=== PATIENT | female | born 1970 | race Caucasian/White ===

== ENCOUNTER 2019-12-10 10:52 | Outpatient (REF) | payer OTHER, SELFPAY ==
--- NOTE | 2019-12-10 11:04 | XR_ITS ---
EXAMINATION: LUMBAR SPINE AND COCCYX X-RAY CLINICAL INFORMATION: Pain COMPARISON: None TECHNIQUE: 5 views of the lumbar spine and 3 views of the sacrum and coccyx FINDINGS: Lumbar spine x-ray: Bone alignment is normal. No fracture or dislocation is seen. Disc spaces are normal. There is mild degenerative spondylosis at L2-L3. Facet joints are normal. No pars defect is seen. Sacrum and coccyx: Bone alignment is normal. No fracture or dislocation is seen. The sacroiliac joints are normal. IMPRESSION: Lumbar spine: Mild degenerative spondylosis at L2-L3. Sacrum and coccyx: Unremarkable exam.
== END 2019-12-10 10:53 | disposition home or self-care (01) ==
LOC: HO.XRAY 10:52
PROVIDERS: PCP Internal Medicine; Visit Provider Psychiatry & Neurology Neurology
DX: M54.5 Low back pain (principal)
CPT/HCPCS: 72110; 72220

== ENCOUNTER 2020-01-07 12:04 | Outpatient (REF) | payer OTHER, SELFPAY ==
[2020-01-07 13:00] LABS: MANUAL DIFF FLAG NO
[2020-01-07 13:05] LABS: Basophils Percent Auto 0.4 % (0-2); Eosinophils Absolute Auto 0.1 X10*3/uL (0.0-0.4); Eosinophils Percent Auto 1.1 % (0-4); Hematocrit 44.8 % (37-47); Imm Gran Abs Auto 0.05 X10*3/uL (0.00-0.03); Imm Gran Pct Auto 0.7 % (0.0-0.4); Lymphocytes Percent Auto 13.5 % (20-40); Mean Corpuscular HGB Conc 33.5 g/dl (31.0-35.0); Mean Corpuscular Hemoglobin 30.8 pg (27.0-33.0); Mean Platelet Volume 9.5 fL (9.4-12.3); Monocytes Absolute Auto 0.5 X10*3/uL (0.1-1.2); Monocytes Percent Auto 6.2 % (2-11); Neutrophils Absolute Auto 5.8 X10*3/uL (2.0-8.3); Neutrophils Percent Auto 78.1 % (45-73); Platelet Count 343 X10*3/uL (160-400); Red Blood Count 4.87 X10*6/uL (4.20-5.50); Red Cell Distribution Width 12.7 % (11.0-16.0); White Blood Count 7.4 X10*3/uL (4.8-10.8)
[2020-01-07 13:23] LABS: Glucose Urine UA >=1000 MG/DL (NEG); Leukocyte Esterase Urine NEG (NEG); Nitrite Urine NEG (NEG); PH 5.5 (5.0-8.0); Urine Blood NEG (NEG); Urine Ketones NEG (NEG); Urine Protein NEG (NEG-TRACE)
[2020-01-07 13:33] LABS: Appearance Urine CLEAR; Color Urine YELLOW
[2020-01-07 13:45] LABS: Anion Gap 19 (12-20); Blood Urea Nitrogen 16 mg/dL (9-16); Calcium 9.3 mg/dL (8.4-10.2); Carbon Dioxide 21 mmol/L (22-29); Chloride 96 mmol/L (96-108); Estimated Glomerular Filt Rate 57; Phosphorus 3.6 mg/dL (2.7-4.5); Potassium 4.5 mmol/l (3.3-5.1); Sodium 131 mmol/L (135-145)
[2020-01-07 14:00] LABS: Bacteria Urine 1+ /LPF; RBC Urine 0 /HPF (0); Squamous Epithelial Cell Urine 1+ /LPF; WBC Urine 0-2 /HPF (0-4)
[2020-01-07 14:22] LABS: Creatinine Urine 28.68 mg/dL; Creatinine Urine 29.45 mg/dL; Microalbum/Creatinine Ratio Ur 55.7 ug/mg cr; Total Protein Urine Random < 7 mg/dL (<12)
[2020-01-07 14:40] LABS: Renal w Reflex Lab Use Only Order verified
== END 2020-01-07 12:05 | disposition home or self-care (01) ==
LOC: HO.LAB 12:04
PROVIDERS: PCP Internal Medicine; Visit Provider Internal Medicine Nephrology
DX: R80.9 Proteinuria, unspecified (principal); E11.9 Type 2 diabetes mellitus without complications; I10 Essential (primary) hypertension; E55.9 Vitamin D deficiency, unspecified; E11.21 Type 2 diabetes mellitus with diabetic nephropathy; N05.9 Unspecified nephritic syndrome with unspecified morphologic changes
CPT/HCPCS: 36415; 80051; 81001; 82043; 82310; 82565; 84100; 84156; 84520; 85025

== ENCOUNTER 2020-01-25 08:06 | Outpatient (REF) | payer OTHER, SELFPAY ==
[2020-01-25 08:44] LABS: Alanine Aminotransferase 23 U/L (0-31); Albumin Level 4.5 g/dL (3.5-5.0); Alkaline Phosphatase 140 U/L (39-117); Anion Gap 14 (12-20); Aspartate Amino Transferase 16 U/L (5-31); Bilirubin Total 0.6 mg/dL (0.0-1.0); Blood Urea Nitrogen 14 mg/dL (9-16); Calcium 9.3 mg/dL (8.4-10.2); Carbon Dioxide 24 mmol/L (22-29); Chloride 100 mmol/L (96-108); Cholesterol 285 mg/dL; Estimated Glomerular Filt Rate > 60; Glucose Fasting 277 mg/dL (60-99); HDL Cholesterol 38 mg/dL; LDL Cholesterol Calculated 195 mg/dl; Potassium 3.9 mmol/l (3.3-5.1); Sodium 134 mmol/L (135-145); Total Protein 7.9 g/dL (6.5-8.0); Triglycerides 261 mg/dL
[2020-01-25 09:04] LABS: Vitamin D 25-OH Total 34.5 ng/mL (>30)
[2020-01-25 09:42] LABS: Creatinine Urine 221.79 mg/dL
== END 2020-01-25 08:07 | disposition home or self-care (01) ==
LOC: HO.LAB 08:06
PROVIDERS: Visit Provider Internal Medicine
DX: E78.2 Mixed hyperlipidemia (principal); E55.9 Vitamin D deficiency, unspecified; E11.42 Type 2 diabetes mellitus with diabetic polyneuropathy
CPT/HCPCS: 80053; 80061; 82043; 82306

== ENCOUNTER 2020-02-01 07:06 | Outpatient (REF) | payer OTHER, SELFPAY | END 2020-02-01 07:07 | disposition home or self-care (01) | LOC: HO.LAB 07:06 | PROVIDERS: Visit Provider Internal Medicine | DX: Z20.828 Contact with and (suspected) exposure to other viral communicable diseases (principal) | CPT/HCPCS: C9803; U0003 ==

== ENCOUNTER 2020-05-25 06:59 | Outpatient (REF) | payer OTHER, SELFPAY ==
[2020-05-25 08:48] LABS: Alanine Aminotransferase 15 U/L (0-31); Albumin Level 4.3 g/dL (3.5-5.0); Alkaline Phosphatase 111 U/L (39-117); Anion Gap 13 (12-20); Aspartate Amino Transferase 15 U/L (5-31); Bilirubin Total 0.3 mg/dL (0.0-1.0); Blood Urea Nitrogen 13 mg/dL (9-16); Calcium 9.4 mg/dL (8.4-10.2); Carbon Dioxide 27 mmol/L (22-29); Chloride 105 mmol/L (96-108); Cholesterol 196 mg/dL; Estimated Glomerular Filt Rate > 60; Glucose Fasting 139 mg/dL (60-99); HDL Cholesterol 38 mg/dL; LDL Cholesterol Calculated 99 mg/dl; Sodium 141 mmol/L (135-145); Total Protein 7.7 g/dL (6.5-8.0); Triglycerides 296 mg/dL
[2020-05-25 08:54] LABS: Creatinine Urine 121.78 mg/dL; Microalbum/Creatinine Ratio Ur 32.8 ug/mg cr
== END 2020-05-25 07:00 | disposition home or self-care (01) ==
LOC: HO.LAB 06:59
PROVIDERS: PCP Internal Medicine; Visit Provider Internal Medicine
DX: E78.2 Mixed hyperlipidemia (principal); E11.9 Type 2 diabetes mellitus without complications
CPT/HCPCS: 36415; 80053; 80061; 82043

== ENCOUNTER 2020-07-15 07:24 | Outpatient (REF) | payer OTHER, SELFPAY ==
[2020-07-15 09:26] LABS: Glucose Urine UA 250 MG/DL (NEG); Leukocyte Esterase Urine TRACE (NEG); Nitrite Urine NEG (NEG); PH 5.5 (5.0-8.0); Specific Gravity - Urine >= 1.030 (1.005-1.025); UACC Culture Trigger YES; Urine Blood NEG (NEG); Urine Ketones NEG (NEG); Urine Protein TRACE MG/DL (NEG-TRACE)
[2020-07-15 09:30] LABS: Appearance Urine HAZY; Color Urine YELLOW; UACC CULT YES
[2020-07-15 09:48] LABS: Bacteria Urine 3+ /LPF; RBC Urine 0 /HPF (0); Squamous Epithelial Cell Urine 3+ /LPF
[2020-07-15 10:10] LABS: Albumin Level 4.5 g/dL (3.5-5.0); Anion Gap 16 (12-20); Blood Urea Nitrogen 21 mg/dL (9-16); Calcium 10.1 mg/dL (8.4-10.2); Carbon Dioxide 27 mmol/L (22-29); Chloride 99 mmol/L (96-108); Estimated Glomerular Filt Rate > 60; Magnesium 1.7 mg/dL (1.6-2.6); Phosphorus 3.4 mg/dL (2.7-4.5); Potassium 4.5 mmol/L (3.3-5.1); Sodium 137 mmol/L (135-145)
[2020-07-15 10:16] LABS: Creatinine Urine 207.28 mg/dL; Microalbum/Creatinine Ratio Ur 51.6 ug/mg cr; Total Protein Urine Random 42 mg/dL (<12)
[2020-07-15 11:25] LABS: Renal w Reflex Lab Use Only Order verified
== END 2020-07-15 07:25 | disposition home or self-care (01) ==
LOC: HO.LAB 07:24
PROVIDERS: PCP Internal Medicine; Visit Provider Internal Medicine Nephrology
DX: R80.9 Proteinuria, unspecified (principal); I12.9 Hypertensive chronic kidney disease with stage 1 through stage 4 chronic kidney disease, or unspecified chronic kidney disease; N18.9 Chronic kidney disease, unspecified; E11.22 Type 2 diabetes mellitus with diabetic chronic kidney disease; E11.21 Type 2 diabetes mellitus with diabetic nephropathy; E55.9 Vitamin D deficiency, unspecified
CPT/HCPCS: 36415; 80051; 81001; 82040; 82043; 82310; 82565; 83735; 84100; 84156; 84520; 87086

== ENCOUNTER 2020-08-12 07:30 | Outpatient (RCR) | payer OTHER, SELFPAY ==
--- NOTE | 2020-08-12 07:59 | MHC.OT.DC ---
[address] [phone] F: [phone] Occupational Therapy Discharge Note Provider: Dr Gavino Vargas Diagnosis: Pain in right hand Date of Evaluation: 07/06/20 Date of Discharge: 08/12/20 Treatments to Date: 8 Discharge Status: Independent with HEP Discharge Summary: Greta has progressed well w/ decreased pain in right CMC joint. She has good pain management w/ orthosis wear and limited use of right thumb. Use of thumb spica at work and occasional at home. Implementing specific jt protection tech as recommended. Mild sx of wrist tenosynovitis> basal jt pain Electronically Signed By: Yeni Reynoso OTR/L Please Sign and return to therapist, thank you for your referral.
== END 2020-08-12 07:59 | disposition other institution (70) ==
LOC: HO.OT 07:30
PROVIDERS: PCP Internal Medicine; Visit Provider Internal Medicine
DX: M79.641 Pain in right hand (principal)
CPT/HCPCS: 29130; 97033; 97035; 97110; 97140; 97165; 97760

== ENCOUNTER 2020-09-11 17:40 | Emergency (ER) | payer OTHER, SELFPAY ==
--- NOTE | ~2020-09-11 | XR_ITS ---
EXAMINATION:XR ankle RT min 3V, XR foot RT min 3V VIEWS ACQUIRED: Frontal lateral and oblique right foot and right ankle CLINICAL INFORMATION: Reason for Exam pain s/p injury COMPARISON: None available at the time of this dictation. FINDINGS: Nondisplaced oblique fracture through the lateral malleolus. The fracture is at the level of the ankle mortise. There is surrounding soft tissue swelling. No fracture of the foot bones.. Intertarsal, tarsometatarsal, metatarsophalangeal and interphalangeal joints are intact. , XR/XR ankle RT min 3V IMPRESSION: Minimally displaced lateral malleolar fracture surrounded with soft tissue swelling.
--- NOTE | ~2020-09-11 | XR_ITS ---
EXAMINATION:XR ankle RT min 3V, XR foot RT min 3V VIEWS ACQUIRED: Frontal lateral and oblique right foot and right ankle CLINICAL INFORMATION: Reason for Exam pain s/p injury COMPARISON: None available at the time of this dictation. FINDINGS: Nondisplaced oblique fracture through the lateral malleolus. The fracture is at the level of the ankle mortise. There is surrounding soft tissue swelling. No fracture of the foot bones.. Intertarsal, tarsometatarsal, metatarsophalangeal and interphalangeal joints are intact. , XR/XR foot RT min 3V IMPRESSION: Minimally displaced lateral malleolar fracture surrounded with soft tissue swelling.
[2020-09-11 17:51] VITALS: BP 144/87; PULSE 91; RESP 16; TEMP 37.1; O2SAT 100; BMI 27.3
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
== END 2020-09-11 19:43 | disposition home or self-care (01) ==
PROVIDERS: Emergency Provider Internal Medicine; PCP Internal Medicine
DX: S82.61XA Displaced fracture of lateral malleolus of right fibula, initial encounter for closed fracture (principal); E11.9 Type 2 diabetes mellitus without complications; I10 Essential (primary) hypertension; Z79.84 Long term (current) use of oral hypoglycemic drugs; Z79.899 Other long term (current) drug therapy; X58.XXXA Exposure to other specified factors, initial encounter; Y93.9 Activity, unspecified; Y92.832 Beach as the place of occurrence of the external cause; Y99.9 Unspecified external cause status
CPT/HCPCS: 73610; 73630; 99283

== ENCOUNTER → 2020-09-15 12:53 | Outpatient (BNVA) | payer OTHER, SELFPAY | PROVIDERS: Visit Provider Physician Assistant | DX: S82.831A Other fracture of upper and lower end of right fibula, initial encounter for closed fracture (principal) | CPT/HCPCS: 99202 ==

== ENCOUNTER 2020-09-24 07:41 | Outpatient (REF) | payer OTHER, SELFPAY ==
[2020-09-24 09:28] LABS: Alanine Aminotransferase 21 U/L (0-31); Albumin Level 4.5 g/dL (3.5-5.0); Alkaline Phosphatase 98 U/L (39-117); Anion Gap 15 (12-20); Aspartate Amino Transferase 20 U/L (5-31); Bilirubin Total 0.8 mg/dL (0.0-1.0); Blood Urea Nitrogen 22 mg/dL (9-16); Calcium 10.4 mg/dL (8.4-10.2); Carbon Dioxide 25 mmol/L (22-29); Chloride 103 mmol/L (96-108); Cholesterol 170 mg/dL; Estimated Glomerular Filt Rate > 60; Glucose Fasting 140 mg/dL (60-99); HDL Cholesterol 42 mg/dL; LDL Cholesterol Calculated 102 mg/dl; Potassium 4.6 mmol/L (3.3-5.1); Sodium 138 mmol/L (135-145); Total Protein 8.1 g/dL (6.5-8.0); Triglycerides 130 mg/dL
[2020-09-24 10:32] LABS: Creatinine Urine 190.67 mg/dL; Microalbum/Creatinine Ratio Ur 18.8 ug/mg cr
[2020-10-01 13:12] LABS: Vitamin D 25-OH, D2 <4 ng/mL; Vitamin D 25-OH, D3 44 ng/mL; Vitamin D 25-OH, Total 44 ng/mL (30-100)
== END 2020-09-24 07:42 | disposition home or self-care (01) ==
LOC: HO.LAB 07:41
PROVIDERS: Visit Provider Internal Medicine
DX: E11.65 Type 2 diabetes mellitus with hyperglycemia (principal); E78.5 Hyperlipidemia, unspecified; E55.9 Vitamin D deficiency, unspecified
CPT/HCPCS: 36415; 80053; 80061; 82043; 82306

== ENCOUNTER 2020-10-06 09:36 | Outpatient (REF) | payer OTHER, SELFPAY ==
--- NOTE | ~2020-10-06 | XR_ITS ---
EXAMINATION: XR ANKLE, RIGHT CLINICAL INFORMATION: Follow-up lateral malleolus fracture. COMPARISON: None TECHNIQUE: AP, lateral, and mortise views of the right ankle. FINDINGS: An oblique fracture is seen of the distal right fibula, in stable alignment. No new significant callus formation is seen. There is no dislocation or right ankle joint effusion. Boehler's angle is normal. There is a small plantar calcaneal spur. No soft tissue swelling or foreign body is seen. XR/XR ankle RT min 3V IMPRESSION: A mildly displaced oblique fracture seen of the distal right fibula, in stable alignment. There is no new callus formation.
== END 2020-10-06 09:37 | disposition home or self-care (01) ==
LOC: HO.HOSX 09:36
PROVIDERS: Visit Provider Physician Assistant
DX: S82.831A Other fracture of upper and lower end of right fibula, initial encounter for closed fracture (principal)
CPT/HCPCS: 73610; 99212

== ENCOUNTER 2020-11-03 09:42 | Outpatient (REF) | payer OTHER, SELFPAY ==
--- NOTE | ~2020-11-03 | XR_ITS ---
EXAMINATION: XR ANKLE, RIGHT CLINICAL INFORMATION: Pain in unspecified ankle and joints of unspecified foot. COMPARISON: XR right ankle 10/06/2020. TECHNIQUE: AP, lateral, and mortise views of the right ankle. FINDINGS: There is stable alignment of the minimally displaced oblique fracture of the distal fibular diametaphysis. There is a slight increase in partially bridging external callus formation posteriorly. There is no other significant change. The ankle mortise remains intact. XR/XR ankle RT min 3V IMPRESSION: Minimal interval callus formation involving the distal fibular fracture.
== END 2020-11-03 09:43 | disposition home or self-care (01) ==
LOC: HO.HOSX 09:42
PROVIDERS: PCP Internal Medicine; Visit Provider Physician Assistant
DX: S82.831A Other fracture of upper and lower end of right fibula, initial encounter for closed fracture (principal)
CPT/HCPCS: 73610; 99212

== ENCOUNTER 2020-12-01 07:24 | Outpatient (REF) | payer OTHER, SELFPAY ==
--- NOTE | ~2020-12-01 | XR_ITS ---
EXAMINATION: XR ANKLE, RIGHT CLINICAL INFORMATION: Pain. Follow-up fracture. COMPARISON: . TECHNIQUE: AP, lateral, and mortise views of the right ankle. FINDINGS: There is an oblique nondisplaced fracture distal fibula with a partially bridging callus formation. The soft tissue swellings have improved. The ankle mortise and subtalar joints are normal. XR/XR ankle RT min 3V IMPRESSION: Interval callus formation involving the distal fibular fracture, stable compared to 11/03/2020
== END 2020-12-01 07:25 | disposition home or self-care (01) ==
LOC: HO.HOSX 07:24
PROVIDERS: Visit Provider Physician Assistant
DX: S82.831D Other fracture of upper and lower end of right fibula, subsequent encounter for closed fracture with routine healing (principal)
CPT/HCPCS: 73610; 99212

== ENCOUNTER 2021-01-05 06:48 | Outpatient (REF) | payer OTHER, SELFPAY ==
[2021-01-05 07:53] LABS: Appearance Urine CLOUDY; Color Urine YELLOW; Glucose Urine UA 100 MG/DL (NEG); Leukocyte Esterase Urine TRACE (NEG); Nitrite Urine NEG (NEG); Specific Gravity - Urine 1.025 (1.005-1.025); UACC Culture Trigger YES; Urine Blood 3+ (NEG); Urine Ketones NEG (NEG); Urine Protein 1+ MG/DL (NEG-TRACE)
[2021-01-05 08:01] LABS: Creatinine Urine 158.52 mg/dL; Microalbum/Creatinine Ratio Ur 47.3 ug/mg cr; Total Protein Urine Random 31 mg/dL (<12)
[2021-01-05 08:05] LABS: Albumin Level 4.2 g/dL (3.5-5.0); Anion Gap 9 (12-20); Blood Urea Nitrogen 15 mg/dL (9-16); Calcium 9.8 mg/dL (8.4-10.2); Carbon Dioxide 30 mmol/L (22-29); Chloride 104 mmol/L (96-108); Estimated Glomerular Filt Rate > 60; Magnesium 1.8 mg/dL (1.6-2.6); Phosphorus 3.3 mg/dL (2.7-4.5); Potassium 4.2 mmol/L (3.3-5.1); Sodium 139 mmol/L (135-145)
[2021-01-05 08:14] LABS: Bacteria Urine 1+ /LPF; WBC Urine 0 /HPF (0-4)
[2021-01-05 08:15] LABS: Mucus Urine 2+ /LPF; Squamous Epithelial Cell Urine 2+ /LPF
== END 2021-01-05 06:49 | disposition home or self-care (01) ==
LOC: HO.LAB 06:48
PROVIDERS: PCP Student in an Organized Health Care Education/Training Program; Visit Provider Internal Medicine Nephrology
DX: R80.9 Proteinuria, unspecified (principal); E11.9 Type 2 diabetes mellitus without complications; I10 Essential (primary) hypertension; E55.9 Vitamin D deficiency, unspecified; E11.21 Type 2 diabetes mellitus with diabetic nephropathy; N05.9 Unspecified nephritic syndrome with unspecified morphologic changes
CPT/HCPCS: 36415; 80051; 81001; 81003; 82040; 82043; 82310; 82565; 83735; 84100; 84156; 84520; 87086

== ENCOUNTER 2021-01-05 07:00 | Outpatient (RCR) | payer OTHER, SELFPAY ==
--- NOTE | 2021-01-05 08:50 | MHC.PT.DC ---
[facility] [place] [facility] [place] Office [address] John Kincaid [address] [phone] F: [phone] F: [phone] F: [phone] F: [phone] Physical Therapy Discharge Report Diagnosis: other fracture of upper and lower end of right fibula Date of Surgery: DOI 09/10/2020 Date of Evaluation: 10/15/20 Date of Discharge: 01/05/21 Treatments to Date: 17 Cancellations to Date: No Shows to Date: Discharge Status: Achieved Goals Improved Function Independent with HEP Discharge Summary: 01/05/21 AAROM 10 degrees for ankle DF. PROM 14 degrees. Left ankle AROM 12 PROM 15 degrees. MMT 5/5 for DF, 5/5 for eversion, 5/5 for inversion 5/5 PF. Pt has met all goals. She is d/c from skilled PT Electronically signed by: Mago Chavarria PT DPT Please sign and return to therapist. Thank you for your referral.
== END 2021-01-05 08:50 | disposition home or self-care (01) ==
LOC: HO.PT 07:00
PROVIDERS: PCP Internal Medicine; Visit Provider Physician Assistant
DX: S82.831D Other fracture of upper and lower end of right fibula, subsequent encounter for closed fracture with routine healing (principal)
CPT/HCPCS: 97110; 97112; 97140; 97162; 97530; 97535

== ENCOUNTER 2021-01-09 07:35 | Outpatient (REF) | payer OTHER, SELFPAY ==
--- NOTE | ~2021-01-09 | MM_ITS ---
EXAMINATION: MM SCREENING DIGITAL BREAST TOMOSYNTHESIS, BILATERAL CLINICAL INFORMATION: Screening. Asymptomatic. The lifetime risk of breast cancer based on the Tyrer-Cuzick Model is 16%. COMPARISON: Mammography: 08/24/2019, 05/13/2017, 02/12/2016 TECHNIQUE: Digital breast tomosynthesis is performed in both the craniocaudal and mediolateral oblique views along with computer-aided detection (CAD). Synthesized 2D images are generated from the tomosynthesis. FINDINGS: There are scattered areas of fibroglandular density (ACR BI-RADS breast composition Category b). There are no significant masses, abnormal calcifications, or other abnormalities. Parenchymal pattern is similar to prior studies. The axilla and skin contours are unremarkable. MM/MM tomosynthesis screening BI IMPRESSION: No mammographic evidence of malignancy. ASSESSMENT: BI-RADS 1: Negative RECOMMENDATION: Routine annual mammography screening. This patient's information was entered into a reminder system with a target due date for their next mammogram.
== END 2021-01-09 07:36 | disposition home or self-care (01) ==
LOC: HO.MAMMO 07:35
PROVIDERS: PCP Internal Medicine; Visit Provider Internal Medicine
DX: Z12.31 Encounter for screening mammogram for malignant neoplasm of breast (principal)
CPT/HCPCS: 77063; 77067

== ENCOUNTER 2021-02-01 06:50 | Outpatient (REF) | payer OTHER, SELFPAY ==
[2021-02-01 07:36] LABS: Alanine Aminotransferase 21 U/L (0-31); Albumin Level 4.3 g/dL (3.5-5.0); Alkaline Phosphatase 113 U/L (39-117); Anion Gap 14 (12-20); Aspartate Amino Transferase 15 U/L (5-31); Bilirubin Total 0.4 mg/dL (0.0-1.0); Blood Urea Nitrogen 19 mg/dL (9-16); Calcium 9.6 mg/dL (8.4-10.2); Carbon Dioxide 24 mmol/L (22-29); Chloride 104 mmol/L (96-108); Cholesterol 184 mg/dL; Estimated Glomerular Filt Rate > 60; Glucose Fasting 190 mg/dL (60-99); HDL Cholesterol 40 mg/dL; LDL Cholesterol Calculated 81 mg/dl; Potassium 4.5 mmol/L (3.3-5.1); Sodium 137 mmol/L (135-145); Total Protein 7.7 g/dL (6.5-8.0); Triglycerides 318 mg/dL
[2021-02-01 09:09] LABS: Creatinine Urine 77.39 mg/dL
[2021-02-05 13:31] LABS: Vitamin D 25-OH, D2 <4 ng/mL; Vitamin D 25-OH, D3 34 ng/mL; Vitamin D 25-OH, Total 34 ng/mL (30-100)
== END 2021-02-01 06:51 | disposition home or self-care (01) ==
LOC: HO.LAB 06:50
PROVIDERS: PCP Internal Medicine; Visit Provider Internal Medicine
DX: E11.65 Type 2 diabetes mellitus with hyperglycemia (principal); E78.5 Hyperlipidemia, unspecified; E55.9 Vitamin D deficiency, unspecified
CPT/HCPCS: 36415; 80053; 80061; 82043; 82306

== ENCOUNTER 2021-04-13 07:38 | Day surgery (SDC) | payer OTHER, SELFPAY ==
--- NOTE | 2021-04-12 08:46 | P.CONAN_ITS ---
Documented by User: Leticia Griffin NP 04/12/21 08:47 HPI - Anesthesia Eval Consult details Narrative: 50yo F for Colonoscopy PMFSH Active Problems Active Problems: All Active Problems (Updated 04/07/21 @ 10:03 by Tanja Esquivel, RN) Conjunctivitis (Acute) Fracture of distal end of right fibula (Acute) Right hand pain (Acute) Hypovitaminosis D (Acute) Diabetes mellitus (Acute) Mixed hyperlipidemia (Acute) Essential hypertension (Acute) GERD (gastroesophageal reflux disease) (Acute) Past Medical History Medical History (Updated 04/07/21 @ 10:03 by Tanja Esquivel, RN) Diabetes mellitus Essential hypertension GERD (gastroesophageal reflux disease) Hypovitaminosis D IBS (irritable bowel syndrome) Left fibular fracture Membranous glomerulonephritis Mixed hyperlipidemia Neuropathy Right hand pain Family History Family History Father No problems noted. Mother Hypertension Maternal Grandmother Breast cancer Maternal Aunt Breast cancer Maternal Aunt Uterine cancer Maternal Uncle Diabetes Family/Other Breast cancer Surgical History Surgical History (Updated 04/07/21 @ 10:03 by Tanja Esquivel RN) History of esophagogastroduodenoscopy (EGD) History of hysteroscopy History of right salpingo-oophorectomy Hx of colonoscopy Social History Social History Housing: Apartment Alcohol intake: current Alcohol intake frequency: holidays/special occasions only Alcohol type: wine and hard liquor Patient Tobacco Use Status: Never used Tobacco e-Cigarette/Vaping Use: Never Used Second Hand Smoke Exposure: No Use of substances other than those prescribed or required for medical reasons: No Are you DNR?: No Advance Directives: Yes Advance Directives on File: Yes Advance Directives Date on File: 12/10/19 service: No Current occupational status: other (unemployed) Current occupation: rt 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 Meds Allergies Allergy/AdvReac Type Severity Reaction Status Date / Time No Known Allergies Allergy Verified 04/07/21 10:04 [No Known Allergies*] Home Medications Medication Instructions Recorded Confirmed Last Taken Type gabapentin 300 mg capsule 300 mg PO 01/28/20 02/03/21 Unknown History metformin 1,000 mg tablet 1,000 mg PO BID 01/28/20 04/07/21 Unknown History triamcinolone acetonide 0.025 % 1 applic TOPICAL DAILY 01/28/20 04/07/21 Unknown History topical cream acetaminophen 500 mg tablet 1,000 mg PO Q8H 09/15/20 04/07/21 Unknown History Exam Exam Date and Time: April 12, 2021 0846 Pertinent Lab Results Pertinent Lab Results: Laboratory Tests 02/01/21 07:06 Sodium 137 Potassium 4.5 Chloride 104 Carbon Dioxide 24 BUN 19 H Creatinine 0.84 Assessment and Plan Assessment Anesthesia Assessment: Chart Reviewed Documented by User: Serjio Fournier 04/13/21 09:05 [facility] Past Medical History Medical History (Updated 04/07/21 @ 10:03 by Tanja Esquivel RN) Diabetes mellitus Essential hypertension GERD (gastroesophageal reflux disease) Hypovitaminosis D IBS (irritable bowel syndrome) Left fibular fracture Membranous glomerulonephritis Mixed hyperlipidemia Neuropathy Right hand pain Family History Family History Father No problems noted. Mother Hypertension Maternal Grandmother Breast cancer Maternal Aunt Breast cancer Maternal Aunt Uterine cancer Maternal Uncle Diabetes Family/Other Breast cancer Family history of problems with anesthesia: No Surgical History Surgical History (Updated 04/07/21 @ 10:03 by Tanja Esquivel RN) History of esophagogastroduodenoscopy (EGD) History of hysteroscopy History of right salpingo-oophorectomy Hx of colonoscopy History of Problems with Anesthesia: No Social History Social History Housing: Apartment Alcohol intake: current Alcohol intake frequency: holidays/special occasions only Alcohol type: wine and hard liquor Patient Tobacco Use Status: Never used Tobacco e-Cigarette/Vaping Use: Never Used Second Hand Smoke Exposure: No Use of substances other than those prescribed or required for medical reasons: No Are you DNR?: No Advance Directives: Yes Advance Directives on File: Yes Advance Directives Date on File: 12/10/19 service: No Current occupational status: other (unemployed) Current occupation: rt handed Meds Allergies Allergy/AdvReac Type Severity Reaction Status Date / Time No Known Allergies Allergy Verified 04/07/21 10:04 [No Known Allergies*] Home Medications Medication Instructions Recorded Confirmed Last Taken Type gabapentin 300 mg capsule 300 mg PO 01/28/20 02/03/21 Unknown History metformin 1,000 mg tablet 1,000 mg PO BID 01/28/20 04/07/21 Unknown History triamcinolone acetonide 0.025 % 1 applic TOPICAL DAILY 01/28/20 04/07/21 Unknown History topical cream acetaminophen 500 mg tablet 1,000 mg PO Q8H 09/15/20 04/07/21 Unknown History Exam Airway Mallampati Class: IV Neck ROM: Full Loose/Missing/Broken Teeth: Yes (Chipped , missing ) Heart: rrr Lungs: bl breath sounds Assessment and Plan Assessment Anesthesia Assessment: Anesthesia Plan Discussed Final Anesthetic Review Family History of Problems with Anesthesia: No History of Problems with Anesthesia: No NPO: Yes ASA Class: III Final Preanesthetic Review: Consent Obtained/Reviewed and Anes Risks/Benef Reviewed Patient Risk: Intermediate Procedure Risk: Intermediate Anesthetic Plan Anesthetic Plan: MAC: Disposition: Standard PACU
[2021-04-13 08:13] VITALS: BP 151/98; PULSE 76; RESP 18; TEMP 36.3; O2SAT 100; BMI 29.7
[2021-04-13 08:23] LABS: Glucose, Whole Blood 162 mg/dL (60-115)
[2021-04-13] MEDS: Lactated Ringers 1,000 ML 100 ML IVCONT (08:36)
--- NOTE | 2021-04-13 08:57 | MHC.SHP ---
Pre-Procedural Eval Section A Date of Service: 04/13/21 The patient is an INPATIENT: No Changes since office visit: No Cold of Flu in the past 2 weeks, No New Medical Problems, No Changes in Medication and No Patient answered all questions The History & Physical has been completed within 30 days and I have reviewed it.: Yes Section B Chief Complaint: Screening Allergies: Allergies Allergy/AdvReac Type Severity Reaction Status Date / Time No Known Allergies Allergy Verified 04/07/21 10:04 [No Known Allergies*] Plan I have reviewed the history and physical and performed a pertinent physical examination on my patient. No changes have occurred unless specified.
--- NOTE | 2021-04-13 09:43 | PM.OP ---
Brief Operative Note Date of Service: 04/13/21 Pre-op diagnosis: screening Post-op diagnosis: same (colon polyps) Surgeon: Sanjiv Salguero Anesthesia: MAC Was an Physician Office Secretary used for this Procedure?: No Estimated blood loss (mL): 5 Pathology: other (polyps 80 cm x3, 20 cm x1) Condition: stable Disposition: PACU
[2021-04-13 09:49] VITALS: BP 122/76; PULSE 83; RESP 16; TEMP 37.1; O2SAT 97
[2021-04-13 10:04] VITALS: BP 111/81; PULSE 77; RESP 16; TEMP 37.1; O2SAT 98
--- NOTE | 2021-04-13 11:38 | OP_ITS ---
SURGEON: Sanjiv Salguero MD INDICATIONS: Colon cancer screening and prior history of adenomatous colon polyps. PREOPERATIVE DIAGNOSIS: POSTOPERATIVE DIAGNOSIS: PROCEDURE PERFORMED: Colonoscopy to the terminal ileum with biopsy and snare polypectomy. ESTIMATED BLOOD LOSS: COMPLICATIONS: ANESTHESIA: Medications, monitored anesthesia care. ASSISTANTS: SPECIMENS: DESCRIPTION OF PROCEDURE: A history and physical was performed. The risks and benefits of the procedure were explained to the patient. Informed consent was obtained, and the patient was placed in the left lateral decubitus position. A digital rectal exam was performed and was found to be normal. The Olympus pediatric video colonoscope was introduced into the rectum and advanced to the cecum without difficulty. The cecum was identified by transillumination, palpation, and identification of the ileocecal valve. Examination was performed, and the scope was removed. She tolerated the procedure well and was returned to the recovery room in stable condition. FINDINGS: The terminal ileum was normal. The visualized colonic mucosa was normal. The quality of the prep was good with some residual greenish blue colored prep material left that was liquid was washed and suctioned to allow visualization of the underlying mucosa. At 80 cm were 3 less than 5 mm sessile polyps, which were removed with the biopsy forceps. A final polyp at 20 cm measured approximately 8 mm and was removed with a snare and recovered via suction. No other polyps were identified. There was mild sigmoid diverticulosis with a few scattered diverticula throughout the remainder of the colon. Retroflex examination did show the presence of internal hemorrhoids that were moderate in size. IMPRESSION: Colon polyps. RECOMMENDATION: Follow up the biopsy results. MD GERSON Crespo/RUBENSL / [id number]
== END 2021-04-13 11:02 | disposition home or self-care (01) ==
PROVIDERS: PCP Internal Medicine Medical Oncology; Visit Provider Internal Medicine Gastroenterology
PROC: 0DJD8ZZ Inspection of Lower Intestinal Tract, Via Natural or Artificial Opening Endoscopic (ICD-10-PCS; CPT 45378; principal; 2021-04-13 09:00)
DX: Z12.11 Encounter for screening for malignant neoplasm of colon (principal); Z86.010 Personal history of colon polyps; D12.4 Benign neoplasm of descending colon; D12.5 Benign neoplasm of sigmoid colon; K57.30 Diverticulosis of large intestine without perforation or abscess without bleeding; K64.8 Other hemorrhoids; K58.0 Irritable bowel syndrome with diarrhea; K21.9 Gastro-esophageal reflux disease without esophagitis; E11.9 Type 2 diabetes mellitus without complications; G62.9 Polyneuropathy, unspecified; N05.2 Unspecified nephritic syndrome with diffuse membranous glomerulonephritis; Z79.899 Other long term (current) drug therapy; Z79.84 Long term (current) use of oral hypoglycemic drugs
CPT/HCPCS: 45385; 45380; 82947; 88305

== ENCOUNTER 2021-06-12 07:38 | Outpatient (REF) | payer OTHER, SELFPAY ==
[2021-06-12 07:59] LABS: MANUAL DIFF FLAG NO
[2021-06-12 09:27] LABS: Basophils Percent Auto 0.8 % (0-2); Eosinophils Absolute Auto 0.1 X10*3/uL (0.0-0.4); Hematocrit 41.9 % (37.0-47.0); Hemoglobin 13.8 g/dl (12.0-16.0); Imm Gran Abs Auto 0.04 X10*3/uL (0.00-0.03); Imm Gran Pct Auto 0.8 % (0.0-0.4); Lymphocytes Absolute Auto 1.1 X10*3/uL (1.2-4.9); Lymphocytes Percent Auto 20.9 % (20-40); Mean Corpuscular HGB Conc 32.9 g/dl (31.0-35.0); Mean Corpuscular Hemoglobin 29.9 pg (27.0-33.0); Mean Corpuscular Volume 90.7 fL (80.0-98.0); Mean Platelet Volume 9.6 fL (9.4-12.3); Monocytes Absolute Auto 0.5 X10*3/uL (0.1-1.2); Monocytes Percent Auto 9.3 % (2-11); Neutrophils Absolute Auto 3.4 x10*3/uL (2.0-8.3); Neutrophils Percent Auto 66.2 % (45-73); Platelet Count 317 X10*3/uL (160-400); Red Blood Count 4.62 X10*6/uL (4.20-5.50); Red Cell Distribution Width 12.9 % (11.0-16.0); White Blood Count 5.1 X10*3/uL (4.8-10.8)
[2021-06-12 09:43] LABS: Creatinine Urine 177.63 mg/dL; Microalbum/Creatinine Ratio Ur 29.8 ug/mg cr
[2021-06-12 09:47] LABS: Alanine Aminotransferase 18 U/L (0-31); Albumin Level 4.3 g/dL (3.5-5.0); Alkaline Phosphatase 120 U/L (39-117); Anion Gap 14 (12-20); Aspartate Amino Transferase 15 U/L (5-31); Bilirubin Total 0.7 mg/dL (0.0-1.0); Blood Urea Nitrogen 18 mg/dL (9-16); Carbon Dioxide 25 mmol/L (22-29); Chloride 101 mmol/L (96-108); Cholesterol 171 mg/dL; Estimated Glomerular Filt Rate > 60; Glucose Fasting 212 mg/dL (60-99); HDL Cholesterol 38 mg/dL; LDL Cholesterol Calculated 84 mg/dl; Potassium 4.4 mmol/L (3.3-5.1); Sodium 136 mmol/L (135-145); Total Protein 7.4 g/dL (6.5-8.0); Triglycerides 248 mg/dL
[2021-06-19 13:07] LABS: Vitamin D 25-OH, D2 <4 ng/mL; Vitamin D 25-OH, D3 31 ng/mL; Vitamin D 25-OH, Total 31 ng/mL (30-100)
== END 2021-06-12 07:39 | disposition home or self-care (01) ==
LOC: HO.LAB 07:38
PROVIDERS: PCP Internal Medicine; Visit Provider Internal Medicine
DX: E11.65 Type 2 diabetes mellitus with hyperglycemia (principal); E55.9 Vitamin D deficiency, unspecified; E78.5 Hyperlipidemia, unspecified; K21.9 Gastro-esophageal reflux disease without esophagitis
CPT/HCPCS: 36415; 80053; 80061; 82043; 82306; 85025

== ENCOUNTER 2021-10-13 07:25 | Outpatient (REF) | payer OTHER, SELFPAY ==
[2021-10-13 09:55] LABS: Alanine Aminotransferase 19 U/L (0-31); Albumin Level 4.2 g/dL (3.5-5.0); Alkaline Phosphatase 143 U/L (39-117); Anion Gap 16 (12-20); Aspartate Amino Transferase 17 U/L (5-31); Bilirubin Total 0.6 mg/dL (0.0-1.0); Blood Urea Nitrogen 14 mg/dL (9-16); Calcium 9.3 mg/dL (8.4-10.2); Carbon Dioxide 23 mmol/L (22-29); Chloride 99 mmol/L (96-108); Cholesterol 308 mg/dL; Estimated Glomerular Filt Rate > 60; Glucose Fasting 303 mg/dL (60-99); HDL Cholesterol 39 mg/dL; Potassium 4.4 mmol/L (3.3-5.1); Sodium 134 mmol/L (135-145); Triglycerides 799 mg/dL
[2021-10-13 10:03] LABS: Thyroid Stimulating Hormone 1.51 uIU/mL (0.32-4.0); Vitamin D 25-OH Total 26.2 ng/mL (>30)
[2021-10-13 10:26] LABS: Folate 14.4 ng/mL (> or = 4.0); Vitamin B12 492 pg/mL (200-900)
[2021-10-13 12:26] LABS: Microalbum/Creatinine Ratio Ur 121.5 ug/mg cr
== END 2021-10-13 07:26 | disposition home or self-care (01) ==
LOC: HO.LAB 07:25
PROVIDERS: PCP Internal Medicine; Visit Provider Internal Medicine
DX: R53.82 Chronic fatigue, unspecified (principal); E55.9 Vitamin D deficiency, unspecified; E78.5 Hyperlipidemia, unspecified; E11.65 Type 2 diabetes mellitus with hyperglycemia
CPT/HCPCS: 36415; 80053; 80061; 82043; 82306; 82607; 82746; 84443

== ENCOUNTER 2022-01-11 10:30 | Outpatient (REF) | payer OTHER, SELFPAY ==
--- NOTE | ~2022-01-11 | MM_ITS ---
EXAMINATION: MM SCREENING DIGITAL BREAST TOMOSYNTHESIS, BILATERAL CLINICAL INFORMATION: Screening. Asymptomatic. COMPARISON: Mammography: January 09, 2021 and studies dating back to February 12, 2016 TECHNIQUE: Digital breast tomosynthesis is performed in both the craniocaudal and mediolateral oblique views along with computer-aided detection (CAD). Synthesized 2D images are generated from the tomosynthesis. FINDINGS: The breasts are almost entirely fatty (ACR BI-RADS breast composition Category a). There are no significant masses, abnormal calcifications, or other abnormalities. MM/MM tomosynthesis screening BI IMPRESSION: No significant changes from prior exam. ASSESSMENT: BI-RADS 1: Negative RECOMMENDATION: Routine annual mammography screening. This patient's information was entered into a reminder system with a target due date for their next mammogram.
== END 2022-01-11 10:31 | disposition home or self-care (01) ==
LOC: HO.MAMMO 10:30
PROVIDERS: PCP Internal Medicine; Visit Provider Internal Medicine
DX: Z12.31 Encounter for screening mammogram for malignant neoplasm of breast (principal)
CPT/HCPCS: 77063; 77067

== ENCOUNTER 2022-01-13 07:39 | Outpatient (REF) | payer OTHER, SELFPAY ==
[2022-01-13 08:23] LABS: Appearance Urine Cloudy; Color Urine Yellow; Glucose Urine UA >=1000 mg/dL (Negative); Leukocyte Esterase Urine Small (1+) (Negative); Nitrite Urine Negative (Negative); PH 5.5 (5.0-9.0); Specific Gravity - Urine >= 1.030 (1.005-1.025); UMIC TRIGGER UA YES; Urine Blood Negative (Negative); Urine Ketones Trace mg/dL (Negative); Urine Protein 30 (1+) mg/dL (Neg-Trace)
[2022-01-13 08:29] LABS: Bacteria Urine 4+ (None Seen); RBC Urine 0-2 /HPF (0-2); Squamous Epithelial Cell Urine >20 /HPF (0-2); WBC Urine >50 /HPF (0-5)
[2022-01-13 08:40] LABS: Anion Gap 17 (12-20); Blood Urea Nitrogen 16 mg/dL (9-16); Calcium 9.9 mg/dL (8.4-10.2); Carbon Dioxide 24 mmol/L (22-29); Chloride 99 mmol/L (96-108); Estimated Glomerular Filt Rate > 60; Potassium 4.3 mmol/L (3.3-5.1); Sodium 136 mmol/L (135-145)
[2022-01-13 08:47] LABS: Creatinine Urine 172.38 mg/dL; Protein/Creatinine Ratio, Ur 0.24 (<0.2); Total Protein Urine Random 42 mg/dL (<12)
== END 2022-01-13 07:40 | disposition home or self-care (01) ==
LOC: HO.LAB 07:39
PROVIDERS: PCP Internal Medicine; Visit Provider Internal Medicine Nephrology
DX: N03.2 Chronic nephritic syndrome with diffuse membranous glomerulonephritis (principal); R80.1 Persistent proteinuria, unspecified; E11.9 Type 2 diabetes mellitus without complications
CPT/HCPCS: 36415; 80051; 81001; 82043; 82310; 82565; 84156; 84520

== ENCOUNTER 2022-05-10 18:54 | Emergency (ER) | payer OTHER, SELFPAY ==
--- NOTE | ~2022-05-10 | XR_ITS ---
EXAMINATION: XR KNEE, RIGHT CLINICAL INFORMATION: Fall with right knee pain COMPARISON: None TECHNIQUE: 2 views of the right knee. FINDINGS: Bones and soft tissues are unremarkable. No fracture or joint effusion. Alignment is anatomic. Joint spaces are well maintained. No abnormal soft tissue calcification. XR/XR knee RT 2V IMPRESSION: Normal right knee.
--- NOTE | ~2022-05-10 | XR_ITS ---
EXAMINATION: XR SHOULDER, RIGHT CLINICAL INFORMATION: Right shoulder pain status post fall with decreased range of motion. COMPARISON: None TECHNIQUE: AP external rotation, Grashey, scapular Y, and axillary views of the right shoulder. FINDINGS: The bones and soft tissues are normal. No fracture. Glenohumeral and acromioclavicular alignment is anatomic with normal joint space. No abnormal soft tissue calcifications. XR/XR shoulder RT min 2V IMPRESSION: Unremarkable right shoulder.
--- NOTE | ~2022-05-10 | XR_ITS ---
EXAMINATION: XR KNEE, LEFT CLINICAL INFORMATION: Left knee pain status post fall. COMPARISON: None TECHNIQUE: Four views of the left knee. FINDINGS: Bones and soft tissues are normal. No fracture or joint effusion. Alignment is anatomic. Joint spaces are well maintained. No abnormal soft tissue calcification. XR/XR knee LT 2V IMPRESSION: Unremarkable left knee.
--- NOTE | 2022-05-10 19:17 | ED.FALL ---
HPI - Fall General Chief Complaint: Fall <Haydee Sunshine CNP - Last Filed: 05/10/22 19:24> Stated Complaint: Fall at work <Haydee Sunshine CNP - Last Filed: 05/10/22 19:24> Time Seen by Provider: 05/10/22 20:17 <Haydee Sunshine CNP - Last Filed: 05/10/22 19:24> Source: patient <Jeffry WoodsDO - Last Filed: 05/10/22 20:29> Mode of arrival: ambulatory <Jeffry WoodsDO corby - Last Filed: 05/10/22 20:29> Limitations: no limitations <Jeffry WoodsDO corby - Last Filed: 05/10/22 20:29> History of Present Illness HPI Narrative: 51-year-old female presents to the emergency department complaining of right shoulder pain. 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 Her wrists especially when is little bit mainly the complaint is her right shoulder she denies any fevers chills cough nausea vomiting or diarrhea. She had no loss of consciousness. She has not taken anything for pain. <Jeffry Woods DO - Last Filed: 05/10/22 20:29> MD complaint: fall <Jeffry RazoDO corby - Last Filed: 05/10/22 20:29> Related Data Home Medications: Home Medications Medication Instructions Recorded Confirmed triamcinolone acetonide 0.025 % 1 applic topical DAILY 01/28/20 06/15/21 topical cream acetaminophen 500 mg tablet 1,000 mg PO Q8H 09/15/20 06/15/21 Previous Rx's Medication Instructions Recorded atorvastatin 80 mg tablet 80 mg PO DAILY #90 tabs 02/21/20 fenofibrate nanocrystallized 145 145 mg PO DAILY #90 tabs 02/21/20 mg tablet pioglitazone 45 mg tablet 45 mg PO DAILY #90 tabs 02/21/20 cholecalciferol (vitamin D3) 50 50 mcg PO DAILY 90 days #90 tabs 12/02/20 mcg (2,000 unit) tablet omega-3 fatty acids-fish oil 300 1 cap PO DAILY 90 days #90 caps 12/02/20 mg-1,000 mg capsule gabapentin 300 mg capsule 300 mg PO BID 30 days #60 caps 06/15/21 amoxicillin 500 mg tablet 500 mg PO BID 7 days #14 tabs 06/22/21 pantoprazole 40 mg tablet,delayed 40 mg PO DAILY 90 days #90 tabs 07/04/21 release dulaglutide 1.5 mg/0.5 mL 1.5 mg (0.5 mL) subcut QWEEK 90 07/14/21 subcutaneous pen injector days #6.5 mL (Trulicity) lisinopril 5 mg tablet 5 mg PO DAILY #90 tabs 10/12/21 metformin 1,000 mg tablet 1,000 mg PO BID 90 days #180 tabs 10/22/21 <Haydee Sunshine CNP - Last Filed: 05/10/22 19:24> Allergies/Adverse Reactions: Allergies Allergy/AdvReac Type Severity Reaction Status Date / Time No Known Allergies Allergy Verified 06/15/21 08:32 [No Known Allergies*] <Haydee Sunshine CNP - Last Filed: 05/10/22 19:24> Review of Systems Review of Systems: Review of systems: General: Patient denies any fever chills recent illness or falls Musculoskeletal: Denies back pain or body aches or other injuries HEENT: denies headache, runny nose, ear pain Respiratory: denies shortness of breath, cough Cardiovascular: no chest pain or palpitations : denies dysuria, frequency Abdomen: no nausea vomiting denies abdominal pain Extremities: no swelling, Right shoulderpain Skin: no diaphoresis <Jeffry Woods DO - Last Filed: 05/10/22 20:29> Yes all other systems are reviewed and are negative <Jeffry Woods DO - Last Filed: 05/10/22 20:29> [facility] Past Medical History Medical History: Medical History (Updated 05/10/22 @ 20:28 by Jeffry Woods DO) Chronic fatigue Diabetes mellitus Essential hypertension GERD (gastroesophageal reflux disease) Hypovitaminosis D IBS (irritable bowel syndrome) Left fibular fracture Membranous glomerulonephritis Mixed hyperlipidemia Neuropathy Right hand pain <Haydee Sunshine CNP - Last Filed: 05/10/22 19:24> Surgical History: Surgical History History of esophagogastroduodenoscopy (EGD) History of hysteroscopy History of right salpingo-oophorectomy Hx of colonoscopy <Haydee Sunshine CNP - Last Filed: 05/10/22 19:24> Family History Family History: Family History Father No problems noted. Mother Hypertension Maternal Grandmother Breast cancer Maternal Aunt Breast cancer Maternal Aunt Uterine cancer Maternal Uncle Diabetes Family/Other Breast cancer <Haydee Sunshine CNP - Last Filed: 05/10/22 19:24> Social History Social History: Social History Housing: Apartment Alcohol intake: current Alcohol intake frequency: holidays/special occasions only Alcohol type: wine and hard liquor Patient Tobacco Use Status: Never used Tobacco e-Cigarette/Vaping Use: Never Used Second Hand Smoke Exposure: No Advance Directives: Yes Advance Directives on File: Yes Advance Directives Date on File: 12/10/19 service: No Current occupational status: unemployed Cognitive needs: No Hearing needs: No Vision needs: No <Haydee Sunshine CNP - Last Filed: 05/10/22 19:24> Physical Exam Vital Signs: Vital Signs: Last Vital Signs Temp 97.4 F 05/10/22 19:44 Pulse 80 05/10/22 19:44 Resp 16 05/10/22 19:44 BP 139/92 H 05/10/22 19:44 Pulse Ox 98 05/10/22 19:44 O2 Del Method 05/10/22 19:44 BMI result Body Mass Index 28.5 <Haydee Sunshine CNP - Last Filed: 05/10/22 19:24> Vital Signs: Last Vital Signs Temp 97.4 F 05/10/22 19:44 Pulse 80 05/10/22 19:44 Resp 16 05/10/22 19:44 BP 139/92 H 05/10/22 19:44 Pulse Ox 98 05/10/22 19:44 O2 Del Method 05/10/22 19:44 BMI result Body Mass Index 28.5 <Jeffry Woods DO - Last Filed: 05/10/22 20:29> General: Well-appearing well-nourished in no signs of distress HEENT: Normocephalic atraumatic Neck: No signs of JVD, no masses no tenderness or lymphadenopathy Cardiovascular: Regular rate and rhythm Respiratory: Clear to auscultation bilaterally Abdomen: Soft nontender no masses Extremities: full range of motion bilateral upper extremities patient is made with a okay sign is able extend wrist and separation yearsNormal pedal pulses no signs of edema Skin: Dry warm no rashes Back: No tenderness full ROM <Jeffry Woods DO - Last Filed: 05/10/22 20:29> Course Course Course Narrative: This is an RME: Additional HPI, ROS, PE not included below will be deferred to primary provider. Patient is a 51 year old female who presents to emergency department for evaluation after a fall at work. Fell onto bilateral knees then hands and struck elbow, also with head strike. Denies LOC, no AC usage. Occured indoors. Pain primarily to right upper extremity and back. PE: full AROM to right wrist and elbow, some decreased AROM to shoulder particullarly with forward extension. Neurovascularly intact distally. Plan: XR shoulder <Haydee Sunshine CNP - Last Filed: 05/10/22 19:24> Medical Decision Making Medical Decision Making MDM Narrative: shoulder dislocation. Patient is well only has pain to the right shoulder with reaching motion after it did not think patient's CT scan head is very minor trauma to her nose that she does not recall hitting it she has full range of motion bilateral upper extremities no tenderness to palpation x-rays performed and is discharging this patient home. <Jeffry Woods DO - Last Filed: 05/10/22 20:29> Differential Diagnosis Differential Diagnoses: The differential diagnosis associated with the presentation includes <Jeffry Woods DO - Last Filed: 05/10/22 20:29> wrist fracture shoulder separation <Jeffry Woods DO - Last Filed: 05/10/22 20:29> Admission/Observation Consideration of admission/observation: Escalation of care including admission/observation considered <Jeffry Woods DO - Last Filed: 05/10/22 20:29> Independent Interpretation I performed an independent interpretation of an: Plain X-Ray <Jeffry Woods DO - Last Filed: 05/10/22 20:29> Radiology Impression Discussion of test interpretation with radiology: I have reviewed the radiologist's reading. <Jeffry Woods DO - Last Filed: 05/10/22 20:29> Discharge Plan Discharge Clinical Impression: Fall, Contusion of knee, left, Contusion of knee, right, Right shoulder strain, Muscle strain of wrist, Strain of both wrists <Haydee Sunshine CNP - Last Filed: 05/10/22 19:24> Patient Disposition: Home, Self-Care <Haydee Sunshine CNP - Last Filed: 05/10/22 19:24> Instructions: Contusion in Adults (ED), Fall Prevention (ED), Muscle Strain (ED) <Haydee Sunshine CNP - Last Filed: 05/10/22 19:24> Additional Instructions: Please call follow with her doctor please use ice Tylenol ibuprofen for pain if you have any other concerns please do not hesitate to come back to emergency department. Did have an x-ray here which was unremarkable <Haydee Sunshine CNP - Last Filed: 05/10/22 19:24> Prescriptions: No Action pioglitazone 45 mg tablet 45 mg PO DAILY Qty: 90 1RF fenofibrate nanocrystallized 145 mg tablet 145 mg PO DAILY Qty: 90 1RF atorvastatin 80 mg tablet 80 mg PO DAILY Qty: 90 1RF cholecalciferol (vitamin D3) 50 mcg (2,000 unit) tablet 50 mcg PO DAILY 90 Days Qty: 90 3RF omega-3 fatty acids-fish oil 300-1,000 mg capsule 1 cap PO DAILY 90 Days Qty: 90 3RF amoxicillin 500 mg tablet 500 mg PO BID 7 Days Qty: 14 0RF pantoprazole 40 mg tablet,delayed release (DR/EC) 40 mg PO DAILY 90 Days Qty: 90 1RF Trulicity 1.5 mg/0.5 mL pen injector 1.5 mg subcut QWEEK 90 Days Qty: 6.5 1RF lisinopril 5 mg tablet 5 mg PO DAILY Qty: 90 1RF metformin 1,000 mg tablet 1,000 mg PO BID 90 Days Qty: 180 1RF triamcinolone acetonide 0.025 % cream 1 applic topical DAILY gabapentin 300 mg capsule 300 mg PO BID 30 Days Qty: 60 0RF acetaminophen 500 mg tablet 1,000 mg PO Q8H <Haydee Sunshine CNP - Last Filed: 05/10/22 19:24>
[2022-05-10 19:19] VITALS: BP 168/99; PULSE 79; RESP 18; TEMP 36.6; O2SAT 99; BMI 28.5
[2022-05-10 19:44] VITALS: BP 139/92; PULSE 80; RESP 16; TEMP 36.3; O2SAT 98
[2022-05-10] MEDS: Acetaminophen 325 MG TABLET 650 MG PO (20:29)
== END 2022-05-10 21:14 | disposition home or self-care (01) ==
PROVIDERS: Emergency Provider Student in an Organized Health Care Education/Training Program; PCP Internal Medicine
DX: S46.911A Strain of unspecified muscle, fascia and tendon at shoulder and upper arm level, right arm, initial encounter (principal); S80.01XA Contusion of right knee, initial encounter; S80.02XA Contusion of left knee, initial encounter; S66.911A Strain of unspecified muscle, fascia and tendon at wrist and hand level, right hand, initial encounter; M25.512 Pain in left shoulder; M25.511 Pain in right shoulder; W01.0XXA Fall on same level from slipping, tripping and stumbling without subsequent striking against object, initial encounter; Y93.9 Activity, unspecified; Y92.9 Unspecified place or not applicable; Y99.9 Unspecified external cause status; Z79.899 Other long term (current) drug therapy
CPT/HCPCS: 73030; 73560; 99283

== ENCOUNTER 2022-06-21 15:14 | Emergency (ER) | payer OTHER, SELFPAY ==
--- NOTE | ~2022-06-21 | XR_ITS ---
EXAMINATION: XR LUMBOSACRAL SPINE CLINICAL INFORMATION: Left-sided flank and back pain COMPARISON: 12/10/2019 TECHNIQUE: Three views of the lumbosacral spine. FINDINGS: No fracture or subluxation. Vertebral body height and alignment maintained. Disc spaces are maintained. Small osteophytes throughout. Mild facet arthropathy at the lower lumbar spine. Normal bowel gas pattern. XR/XR lumbar spine 2-3V IMPRESSION: Mild degenerative changes of the lumbar spine.
[2022-06-21 15:54] VITALS: BP 147/86; PULSE 91; RESP 18; TEMP 36.8; O2SAT 98; BMI 28.3
--- NOTE | 2022-06-21 15:56 | ED_ITS ---
HPI - Back Pain/Injury General Chief Complaint: General Medical <NED Lawrence Last Filed: 06/21/22 15:57> Stated Complaint: Lower back pain/radiates down leg <NED Lawrence Last Filed: 06/21/22 15:57> Time Seen by Provider: 06/21/22 15:59 <NED Lawrence Last Filed: 06/21/22 15:57> Source: patient <NED Bond Last Filed: 06/21/22 17:17> Mode of arrival: ambulatory <NED Bond Last Filed: 06/21/22 17:17> Limitations: no limitations <NED Bond Last Filed: 06/21/22 17:17> History of Present Illness HPI Narrative: 52 yo female wiht history of HTN, HLD, DM who presents to the ER for evaluation of left lower back and buttock pain that started today when she was at work. She was sitting in a rocking chair, when she went to get up she had pain in her left lower back, buttock and the pain shot down her left leg. She reports the pain is worse with movement. No LE weakness, numbness or tingling. No urinary or bowel issues. No history of LBP similar to this in the past. <NED Bond - Last Filed: 06/21/22 17:17> MD elicited complaint: back pain <NED Bond Last Filed: 06/21/22 17:17> Onset (ago): hour(s) <NED Bond Last Filed: 06/21/22 17:17> Timing: intermittent <NED Bond Last Filed: 06/21/22 17:17> Severity: moderate <NED Bond Last Filed: 06/21/22 17:17> Quality: sharp and stabbing <NED Bond Last Filed: 06/21/22 17:17> Location: left lower back <NED Bond Last Filed: 06/21/22 17:17> Radiation: buttocks and left leg below the knee <NED Bond Last Filed: 06/21/22 17:17> Exacerbating factors: movement <NED Bond - Last Filed: 06/21/22 17:17> Relieving factors: immobilization and medication <NED Bond - Last Filed: 06/21/22 17:17> Context: turning/twisting <NED Bond - Last Filed: 06/21/22 17:17> Associated symptoms: denies other symptoms <NED Bond - Last Filed: 06/21/22 17:17> Work related injury: Yes <NED Bond - Last Filed: 06/21/22 17:17> Related Data Home Medications: Home Medications Medication Instructions Recorded Confirmed triamcinolone acetonide 0.025 % 1 applic topical DAILY 01/28/20 06/15/21 topical cream acetaminophen 500 mg tablet 1,000 mg PO Q8H 09/15/20 06/15/21 Previous Rx's Medication Instructions Recorded atorvastatin 80 mg tablet 80 mg PO DAILY #90 tabs 02/21/20 fenofibrate nanocrystallized 145 145 mg PO DAILY #90 tabs 02/21/20 mg tablet pioglitazone 45 mg tablet 45 mg PO DAILY #90 tabs 02/21/20 cholecalciferol (vitamin D3) 50 50 mcg PO DAILY 90 days #90 tabs 12/02/20 mcg (2,000 unit) tablet omega-3 fatty acids-fish oil 300 1 cap PO DAILY 90 days #90 caps 12/02/20 mg-1,000 mg capsule gabapentin 300 mg capsule 300 mg PO BID 30 days #60 caps 06/15/21 amoxicillin 500 mg tablet 500 mg PO BID 7 days #14 tabs 06/22/21 pantoprazole 40 mg tablet,delayed 40 mg PO DAILY 90 days #90 tabs 07/04/21 release dulaglutide 1.5 mg/0.5 mL 1.5 mg (0.5 mL) subcut QWEEK 90 07/14/21 subcutaneous pen injector days #6.5 mL (Trulicity) lisinopril 5 mg tablet 5 mg PO DAILY #90 tabs 10/12/21 metformin 1,000 mg tablet 1,000 mg PO BID 90 days #180 tabs 10/22/21 cyclobenzaprine 10 mg tablet 10 mg PO TID PRN muscle spasm #14 06/21/22 tabs ibuprofen 600 mg tablet 600 mg PO Q8H PRN pain #14 tabs 06/21/22 lidocaine 5 % topical patch 1 patch topical DAILY #15 ea 06/21/22 <NED Lawrence - Last Filed: 06/21/22 15:57> Allergies/Adverse Reactions: Allergies Allergy/AdvReac Type Severity Reaction Status Date / Time No Known Allergies Allergy Verified 06/21/22 15:54 [No Known Allergies*] <NED Lawrence - Last Filed: 06/21/22 15:57> Review of Systems Review of Systems: Yes all other systems are reviewed and are negative <NED Bond - Last Filed: 06/21/22 17:17> COUNTS INCLUDE 234 BEDS AT THE [facility] Past Medical History Medical History: Medical History (Updated 06/21/22 @ 16:48 by NED Bond) Chronic fatigue Diabetes mellitus Essential hypertension GERD (gastroesophageal reflux disease) Hypovitaminosis D IBS (irritable bowel syndrome) Left fibular fracture Membranous glomerulonephritis Mixed hyperlipidemia Neuropathy Right hand pain <NED Lawrence - Last Filed: 06/21/22 15:57> Surgical History: Surgical History History of esophagogastroduodenoscopy (EGD) History of hysteroscopy History of right salpingo-oophorectomy Hx of colonoscopy <NED Lawrence - Last Filed: 06/21/22 15:57> Family History Family History: Family History Father No problems noted. Mother Hypertension Maternal Grandmother Breast cancer Maternal Aunt Breast cancer Maternal Aunt Uterine cancer Maternal Uncle Diabetes Family/Other Breast cancer <NED Lawrence - Last Filed: 06/21/22 15:57> Social History Social History: Social History Housing: Apartment Alcohol intake: current Alcohol intake frequency: holidays/special occasions only Alcohol type: wine and hard liquor Patient Tobacco Use Status: Never used Tobacco e-Cigarette/Vaping Use: Never Used Second Hand Smoke Exposure: No Advance Directives: Yes Advance Directives on File: Yes Advance Directives Date on File: 12/10/19 service: No Current occupational status: unemployed Cognitive needs: No Hearing needs: No Vision needs: No <NED Lawrence - Last Filed: 06/21/22 15:57> Physical Exam Vital Signs: Vital Signs: Last Vital Signs Temp 98.3 F 06/21/22 15:54 Pulse 91 06/21/22 15:54 Resp 18 06/21/22 15:54 BP 147/86 H 06/21/22 15:54 Pulse Ox 98 06/21/22 15:54 O2 Del Method Room Air 06/21/22 15:54 BMI result Body Mass Index 28.3 <NED Lawrence - Last Filed: 06/21/22 15:57> Vital Signs: Last Vital Signs Temp 98.3 F 06/21/22 15:54 Pulse 91 06/21/22 15:54 Resp 18 06/21/22 15:54 BP 147/86 H 06/21/22 15:54 Pulse Ox 98 06/21/22 15:54 O2 Del Method Room Air 06/21/22 15:54 BMI result Body Mass Index 28.3 <NED Bond - Last Filed: 06/21/22 17:17> Appearance: Alert. Oriented X3. No acute distress. HEENT: normal inspection CVS: Normal heart rate and rhythm. Pulses normal. Respiratory: No respiratory distress. Skin: Skin warm and dry. Normal skin color. Normal skin turgor. No rashes. Back: normal inspection, nontender lumbar area, no midline tenderness. +SI joint tenderness on the left. Extremities: normal inspection x4, normal ROM x4 Neuro: Oriented X 3. No motor deficit. No sensory deficit. Steady gait <NED Bond - Last Filed: 06/21/22 17:17> Course Course Course Narrative: This is an RME: Additional HPI, ROS, PE not included below will be deferred to primary provider. 52-year-old female presents for evaluation of left lumbar pain that radiates into left lower extremity to around the calf region, she tells me it started when she was sitting in a chair while at work, patient tells me this has happened to her before. Denies red flag symptoms. Recently has not had imaging of her lower back. Patient ambulatory into triage Physical exam left lumbar discomfort, and discomfort with ambulation. Plan imaging, Toradol, Lidoderm <NED Lawrence - Last Filed: 06/21/22 15:57> Medications Administered Discontinued Medications Generic Name Dose Route Start Last Admin Trade Name Freq PRN Reason Stop Dose Admin Ketorolac Tromethamine 30 mg 06/21/22 15:55 06/21/22 16:05 Ketorolac Tromethamine 15 Mg/Ml Vial IM 06/21/22 15:56 30 mg ONCE ONE Administration Lidocaine 1 patch 06/21/22 15:55 06/21/22 16:05 Lidocaine 4 % Patch Adh..Patch TRANSDERMA 06/21/22 15:56 1 patch ONCE ONE Administration Protocol <NED Lawrence - Last Filed: 06/21/22 15:57> Medications Administered Discontinued Medications Generic Name Dose Route Start Last Admin Trade Name Freq PRN Reason Stop Dose Admin Ketorolac Tromethamine 30 mg 06/21/22 15:55 06/21/22 16:05 Ketorolac Tromethamine 15 Mg/Ml Vial IM 06/21/22 15:56 30 mg ONCE ONE Administration Lidocaine 1 patch 06/21/22 15:55 06/21/22 16:05 Lidocaine 4 % Patch Adh..Patch TRANSDERMA 06/21/22 15:56 1 patch ONCE ONE Administration Protocol <NED Bond - Last Filed: 06/21/22 17:17> Medical Decision Making Medical Decision Making MDM Narrative: 52 yo female presenting to the ER for evaluation of left lower back pain radiating to the buttock and left leg that started today after trying to get out of a rocking chair. No red flag symptoms of LBP. +SIjoint tenderness on exam. Most likely inflammation of sciatic nerve or lumbar radiculopathy. Will start muscle relaxers, nsaids and lidoderm. Stable for d/c home. encouraged f/u with PCP. <NED Bond Last Filed: 06/21/22 17:17> Differential Diagnosis Differential Diagnoses: The differential diagnosis associated with the presentation includes <NED Bond Last Filed: 06/21/22 17:17> Inflammatory disorders, malignancy, trauma, osteoporosis, nerve root compression, radiculopathy, plexopathy, degenerative disc disease, disc herniation, spinal stenosis, sacroiliac joint dysfunction, facet joint injury, and less likely infection?like abscess or diskitis <NED Bond - Last Filed: 06/21/22 17:17> Lab Data MDM Lab Attestation statement: I reviewed the patient's lab results. <NED Bond - Last Filed: 06/21/22 17:17> Labs: Lab Results 06/21/22 Range/Units 16:50 Urine Color Yellow Urine Appearance Clear Urine pH 5.0 (5.0-9.0) Ur Specific [place] >= 1.030 H (1.005-1.025) Urine Protein Negative (Neg-Trace) mg/dL Urine Glucose (UA) >=1000 H (Negative) mg/dL Urine Ketones Negative (Negative) mg/dL Urine Blood Negative (Negative) Urine Nitrite Negative (Negative) Ur Leukocyte Esterase Negative (Negative) Urine RBC 0-2 (0-2) /HPF Urine WBC 0-5 (0-5) /HPF Ur Squamous Epith Cells 0-2 (0-2) /HPF Urine Bacteria None Seen (None Seen) Hyaline Casts 0-2 (0-2) /LPF <NED Lawrence - Last Filed: 06/21/22 15:57> Lab Results 06/21/22 Range/Units 16:50 Urine Color Yellow Urine Appearance Clear Urine pH 5.0 (5.0-9.0) Ur Specific [place] >= 1.030 H (1.005-1.025) Urine Protein Negative (Neg-Trace) mg/dL Urine Glucose (UA) >=1000 H (Negative) mg/dL Urine Ketones Negative (Negative) mg/dL Urine Blood Negative (Negative) Urine Nitrite Negative (Negative) Ur Leukocyte Esterase Negative (Negative) Urine RBC 0-2 (0-2) /HPF Urine WBC 0-5 (0-5) /HPF Ur Squamous Epith Cells 0-2 (0-2) /HPF Urine Bacteria None Seen (None Seen) Hyaline Casts 0-2 (0-2) /LPF <NED Bond - Last Filed: 06/21/22 17:17> Independent Interpretation I performed an independent interpretation of an: Plain X-Ray <NED Bond - Last Filed: 06/21/22 17:17> Interpretation: no compression deformity of significant arthritic changes <NED Bond - Last Filed: 06/21/22 17:17> Radiology Impression Discussion of test interpretation with radiology: I have reviewed the radiologist's reading. <NED Bond - Last Filed: 06/21/22 17:17> Radiologist Impression: XR/XR lumbar spine 2-3V IMPRESSION: Mild degenerative changes of the lumbar spine. <NED Bond - Last Filed: 06/21/22 17:17> External Record Review External record reviewed: Prior outpatient labs and Prior outpatient radiology <NED Bond - Last Filed: 06/21/22 17:17> Prescription Management I considered prescription management with: Pain Medication and Other (muscle relaxer) <END Bond - Last Filed: 06/21/22 17:17> Chronic Conditions Patient?s care impacted by: Hypertension <NED Bond - Last Filed: 06/21/22 17:17> Critical Care Time Critical Care Time Critical Care Time: No <NED Bond - Last Filed: 06/21/22 17:17> Discharge Plan Discharge Clinical Impression: Low back pain <NED Lawrence - Last Filed: 06/21/22 15:57> Patient Disposition: Home, Self-Care <NED Lawrence - Last Filed: 06/21/22 15:57> Instructions: Sciatica (ED), Lower Back Exercises (ED) <NED Lawrence - Last Filed: 06/21/22 15:57> Additional Instructions: Your pain is most likely due to inflammation and irritation of your sciatic nerve. No bending, lifting or twisting. Use ice several times per day for 20 minutes at a time for the next 48 hours and then change to heat. Take medications as prescribed to help with pain and discomfort. Follow up with your Primary Care Doctor this week. If your pain worsens, if you develop new numbness, tingling, weakness, loss of function or incontinence call 911 or come back to the ER right away for evaluation. <NED Lawrence - Last Filed: 06/21/22 15:57> Prescriptions: New cyclobenzaprine 10 mg tablet 10 mg PO TID PRN (Reason: muscle spasm) Qty: 14 0RF ibuprofen 600 mg tablet 600 mg PO Q8H PRN (Reason: pain) Qty: 14 0RF lidocaine 5 % adhesive patch,medicated 1 patch topical DAILY Qty: 15 0RF Rx Instructions: leave on most painful area for up to 12 hrs No Action pioglitazone 45 mg tablet 45 mg PO DAILY Qty: 90 1RF fenofibrate nanocrystallized 145 mg tablet 145 mg PO DAILY Qty: 90 1RF atorvastatin 80 mg tablet 80 mg PO DAILY Qty: 90 1RF cholecalciferol (vitamin D3) 50 mcg (2,000 unit) tablet 50 mcg PO DAILY 90 Days Qty: 90 3RF omega-3 fatty acids-fish oil 300-1,000 mg capsule 1 cap PO DAILY 90 Days Qty: 90 3RF amoxicillin 500 mg tablet 500 mg PO BID 7 Days Qty: 14 0RF pantoprazole 40 mg tablet,delayed release (DR/EC) 40 mg PO DAILY 90 Days Qty: 90 1RF Trulicity 1.5 mg/0.5 mL pen injector 1.5 mg subcut QWEEK 90 Days Qty: 6.5 1RF lisinopril 5 mg tablet 5 mg PO DAILY Qty: 90 1RF metformin 1,000 mg tablet 1,000 mg PO BID 90 Days Qty: 180 1RF triamcinolone acetonide 0.025 % cream 1 applic topical DAILY gabapentin 300 mg capsule 300 mg PO BID 30 Days Qty: 60 0RF acetaminophen 500 mg tablet 1,000 mg PO Q8H <NED Lawrence - Last Filed: 06/21/22 15:57> Referrals: Chloe Estrada MD [Primary Care Provider] - <NED Lawrence - Last Filed: 06/21/22 15:57> Interventions: ED Discharge Assessment Last Done: 06/21/22 17:14 <NED Lawrence - Last Filed: 06/21/22 15:57>
[2022-06-21] MEDS: Lidocaine 4 % Patch ADH..PATCH 1 PATCH TRANSDERMA (16:05)
[2022-06-21] MEDS: Ketorolac Tromethamine 15 MG/ML VIAL 30 MG IM (16:05)
--- NOTE | 2022-06-21 16:08 | PC.NURSE ---
pt medicated per provider order for 10/10 left lower back/hip pain. no known injury to area.
[2022-06-21 17:03] LABS: Appearance Urine Clear; Color Urine Yellow; Glucose Urine UA >=1000 mg/dL (Negative); Leukocyte Esterase Urine Negative (Negative); Nitrite Urine Negative (Negative); Specific Gravity - Urine >= 1.030 (1.005-1.025); UMIC TRIGGER UACC YES; Urine Blood Negative (Negative); Urine Ketones Negative (Negative); Urine Protein Negative (Neg-Trace)
[2022-06-21 17:05] LABS: Bacteria Urine None Seen (None Seen); Hyaline Casts Urine 0-2 /LPF (0-2); RBC Urine 0-2 /HPF (0-2); Squamous Epithelial Cell Urine 0-2 /HPF (0-2); WBC Urine 0-5 /HPF (0-5)
== END 2022-06-21 17:14 | disposition home or self-care (01) ==
PROVIDERS: Physician Assistant; Emergency Provider Emergency Medicine Emergency Medical Services; PCP Internal Medicine
DX: M54.50 Low back pain, unspecified (principal); E11.9 Type 2 diabetes mellitus without complications; I10 Essential (primary) hypertension; E78.5 Hyperlipidemia, unspecified; Z79.85 Long-term (current) use of injectable non-insulin antidiabetic drugs; Z79.02 Long term (current) use of antithrombotics/antiplatelets; Z79.899 Other long term (current) drug therapy
CPT/HCPCS: 72100; 81001; 81003; 96372; 99283; 99284; J1885

== ENCOUNTER 2022-06-27 19:45 | Emergency (ER) | payer OTHER, SELFPAY ==
--- NOTE | ~2022-06-27 | XR_ITS ---
EXAMINATION: XR HIP, LEFT CLINICAL INFORMATION: Pain COMPARISON: Previous x-ray from 2018 TECHNIQUE: Two views of the left hip and one view of the pelvis. FINDINGS: Bone alignment is normal. No fracture or dislocation. There is mild left hip arthritis with small osteophytes. The right hip joint is normal. Bones of the pelvis are normal. There may be faint soft tissue calcification or ossification adjacent to the left greater trochanter. XR/XR hip LT w PEL1V IMPRESSION: Mild left hip arthritis.
[2022-06-27 20:24] VITALS: BP 168/93; PULSE 89; RESP 18; TEMP 36.8; O2SAT 100; BMI 27.4
--- NOTE | 2022-06-27 20:24 | ED_ITS ---
HPI - Back Pain/Injury General Chief Complaint: Extremity Problem <NED Villagran - Last Filed: 06/27/22 20:29> Stated Complaint: left side leg and back pain <NED Villagran - Last Filed: 06/27/22 20:29> Time Seen by Provider: 06/27/22 22:20 <NED Villagran - Last Filed: 06/27/22 20:29> Source: patient <Woo Castro MD - Last Filed: 06/27/22 22:39> Mode of arrival: ambulatory <Woo Castro MD - Last Filed: 06/27/22 22:39> Limitations: no limitations <Woo Castro MD - Last Filed: 06/27/22 22:39> History of Present Illness HPI Narrative: 52 yo female w/history of HTN, HLD, DM who presents to the ED for evaluation of continued left low back/buttock pain radiating down left lower extremity x 1 week. Patient was seen and treated in our ED on 06/21 for similar symptoms, had lumbar x-ray showing degenerative changes. Reports pain is more in left hip, denies injury/trauma, urinary incontinence/retention. Taking previously prescribed medications without relief The pain radiates down her left leg. <Woo Castro MD - Last Filed: 06/27/22 22:39> MD elicited complaint: back pain <Woo Castro MD - Last Filed: 06/27/22 22:39> Pertinent past history: prior back pain <Woo Castro MD - Last Filed: 06/27/22 22:39> Onset (ago): week(s) <oWo Castro MD - Last Filed: 06/27/22 22:39> Timing: intermittent <Woo Castro MD - Last Filed: 06/27/22 22:39> Severity: moderate <Woo Castro MD - Last Filed: 06/27/22 22:39> Location: left lower back <Woo Castro MD - Last Filed: 06/27/22 22:39> Radiation: left upper leg and left leg below the knee <Woo Castro MD - Last Filed: 06/27/22 22:39> Associated symptoms: denies other symptoms <Woo Castro MD - Last Filed: 06/27/22 22:39> Related Data Home Medications: Home Medications Medication Instructions Recorded Confirmed triamcinolone acetonide 0.025 % 1 applic topical DAILY 01/28/20 06/15/21 topical cream acetaminophen 500 mg tablet 1,000 mg PO Q8H 09/15/20 06/15/21 Previous Rx's Medication Instructions Recorded atorvastatin 80 mg tablet 80 mg PO DAILY #90 tabs 02/21/20 fenofibrate nanocrystallized 145 145 mg PO DAILY #90 tabs 02/21/20 mg tablet pioglitazone 45 mg tablet 45 mg PO DAILY #90 tabs 02/21/20 cholecalciferol (vitamin D3) 50 50 mcg PO DAILY 90 days #90 tabs 12/02/20 mcg (2,000 unit) tablet omega-3 fatty acids-fish oil 300 1 cap PO DAILY 90 days #90 caps 12/02/20 mg-1,000 mg capsule gabapentin 300 mg capsule 300 mg PO BID 30 days #60 caps 06/15/21 amoxicillin 500 mg tablet 500 mg PO BID 7 days #14 tabs 06/22/21 pantoprazole 40 mg tablet,delayed 40 mg PO DAILY 90 days #90 tabs 07/04/21 release dulaglutide 1.5 mg/0.5 mL 1.5 mg (0.5 mL) subcut QWEEK 90 07/14/21 subcutaneous pen injector days #6.5 mL (Trulicity) lisinopril 5 mg tablet 5 mg PO DAILY #90 tabs 10/12/21 metformin 1,000 mg tablet 1,000 mg PO BID 90 days #180 tabs 10/22/21 cyclobenzaprine 10 mg tablet 10 mg PO TID PRN muscle spasm #14 06/21/22 tabs ibuprofen 600 mg tablet 600 mg PO Q8H PRN pain #14 tabs 06/21/22 lidocaine 5 % topical patch 1 patch topical DAILY #15 ea 06/21/22 <NED Villagran - Last Filed: 06/27/22 20:29> Allergies/Adverse Reactions: Allergies Allergy/AdvReac Type Severity Reaction Status Date / Time No Known Allergies Allergy Verified 06/21/22 15:54 [No Known Allergies*] <NED Villagran - Last Filed: 06/27/22 20:29> Review of Systems Review of Systems: Yes all other systems are reviewed and are negative <Woo Castro MD - Last Filed: 06/27/22 22:39> Musculoskeletal: Musculoskeletal: Reports back pain <Woo Castro MD - Last Filed: 06/27/22 22:39> Comments: radicular leg pain <Woo Castro MD - Last Filed: 06/27/22 22:39> Neurologic: Denies Sensory deficit (Neuro) <Woo Castro MD - Last Filed: 06/27/22 22:39> [facility] Past Medical History Medical History: Medical History Chronic fatigue Diabetes mellitus Essential hypertension GERD (gastroesophageal reflux disease) Hypovitaminosis D IBS (irritable bowel syndrome) Left fibular fracture Membranous glomerulonephritis Mixed hyperlipidemia Neuropathy Right hand pain <NED Villagran - Last Filed: 06/27/22 20:29> Surgical History: Surgical History History of esophagogastroduodenoscopy (EGD) History of hysteroscopy History of right salpingo-oophorectomy Hx of colonoscopy <NED Villagran - Last Filed: 06/27/22 20:29> Family History Family History: Family History Father No problems noted. Mother Hypertension Maternal Grandmother Breast cancer Maternal Aunt Breast cancer Maternal Aunt Uterine cancer Maternal Uncle Diabetes Family/Other Breast cancer <NED Villagran - Last Filed: 06/27/22 20:29> Social History Social History: Social History Housing: Apartment Alcohol intake: current Alcohol intake frequency: holidays/special occasions only Alcohol type: wine and hard liquor Patient Tobacco Use Status: Never used Tobacco e-Cigarette/Vaping Use: Never Used Second Hand Smoke Exposure: No Advance Directives: Yes Advance Directives on File: Yes Advance Directives Date on File: 12/10/19 service: No Current occupational status: unemployed Cognitive needs: No Hearing needs: No Vision needs: No <NED Villagran - Last Filed: 06/27/22 20:29> Physical Exam Vital Signs: Vital Signs: Last Vital Signs Temp 98.3 F 06/27/22 20:24 Pulse 89 06/27/22 20:24 Resp 18 06/27/22 20:24 BP 168/93 H 06/27/22 20:24 Pulse Ox 100 06/27/22 20:24 O2 Del Method Room Air 06/27/22 20:24 BMI result Body Mass Index 27.4 <NED Villagran - Last Filed: 06/27/22 20:29> Vital Signs: Last Vital Signs Temp 98.3 F 06/27/22 20:24 Pulse 89 06/27/22 20:24 Resp 18 06/27/22 20:24 BP 168/93 H 06/27/22 20:24 Pulse Ox 100 06/27/22 20:24 O2 Del Method Room Air 06/27/22 20:24 BMI result Body Mass Index 27.4 <Woo Castro MD - Last Filed: 06/27/22 22:39> Const: General: healthy appearing <Woo Castro MD - Last Filed: 06/27/22 22:39> Nutritional Appearance: average body habitus <Woo Castro MD - Last Filed: 06/27/22 22:39> Orientation/consciousness: oriented to person and patient oriented x3 <Woo Castro MD - Last Filed: 06/27/22 22:39> Limitations: no limitations <Woo Castro MD - Last Filed: 06/27/22 22:39> HEENT: Head: Yes normal to inspection <Woo Castro MD - Last Filed: 06/27/22 22:39> Ears: external ears normal <Woo Castro MD - Last Filed: 06/27/22 22:39> General nose exam: Normal external nose present <Woo Castro MD - Last Filed: 06/27/22 22:39> Mouth: Normal oral and palatal mucosa present and oropharynx normal <Woo Castro MD - Last Filed: 06/27/22 22:39> Throat: Yes posterior oropharynx normal <Woo Castro MD - Last Filed: 06/27/22 22:39> Eyes: General: appearance normal, both eyes and all related structures <Woo Castro MD - Last Filed: 06/27/22 22:39> Neck: Other: supple <Woo Castro MD - Last Filed: 06/27/22 22:39> Neck: Yes normal visual inspection <Woo Castro MD - Last Filed: 06/27/22 22:39> Chest: Chest palpation & inspection: normal inspection of the chest <Woo Castro MD - Last Filed: 06/27/22 22:39> Resp: Auscultation: clear to auscultation bilaterally <Woo Castro MD - Last Filed: 06/27/22 22:39> Cardio: Jugular venous distension: no JVD <Woo Castro MD - Last Filed: 06/27/22 22:39> Rate: regular rate <Woo Castro MD - Last Filed: 06/27/22 22:39> Rhythm: regular rhythm <Woo Castro MD - Last Filed: 06/27/22 22:39> Heart sounds: S1 normal heart sound present and S2 normal heart sound present <Woo Castro MD - Last Filed: 06/27/22 22:39> GI: Inspection: Yes normal to inspection <Woo Castro MD - Last Filed: 06/27/22 22:39> Palpation (GI): Soft to palpation, nontender and No hepatosplenomegaly present <Woo Castro MD - Last Filed: 06/27/22 22:39> Auscultation: normal bowel sounds <Woo Castro MD - Last Filed: 06/27/22 22:39> Back/Spine/Pelvis: Other: Left sciatic tenderness to palpation, hip with full range of motion <Woo Castro MD - Last Filed: 06/27/22 22:39> Skin: General skin exam: no rashes or lesions noted <Woo Castro MD - Last Filed: 06/27/22 22:39> Neuro: General: oriented to person and patient oriented x3 <Woo Castro MD - Last Filed: 06/27/22 22:39> Cranial nerves: Yes CN's II-XII intact bilaterally <Woo Castro MD - Last Filed: 06/27/22 22:39> Motor exam (neuro): 5/5 motor strength present throughout <Woo Castro MD - Last Filed: 06/27/22 22:39> Sensory Exam: No Sensory deficit (Neuro) <Woo Castro MD - Last Filed: 06/27/22 22:39> Extrem: General: Yes normal to inspection <Woo Castro MD - Last Filed: 06/27/22 22:39> Psych: Appearance: grossly normal <Woo Castro MD - Last Filed: 06/27/22 22:39> Course Course Course Narrative: RME: 52 yo female w/history of HTN, HLD, DM who presents to the ED for evaluation of continued left low back/buttock pain radiating down left lower extremity x 1 week. Patient was seen and treated in our ED on 06/21 for similar symptoms, had lumbar x-ray showing degenerative changes. Reports pain is more in left hip, denies injury/trauma, urinary incontinence/retention. Taking previously prescribed medications without relief No midline tenderness on exam. Left buttock/hip tenderness noted. Ambulating with steady gait Hip x-ray ordered. will need pain control Full HPI, ROS and PE to be performed by primary ED provider. <NED Villagran - Last Filed: 06/27/22 20:29> Reevaluation(s) Reevaluation #1: patient with Sciatica will increase gabapentin and start skalexin and refer to back specialist <Woo Castro MD - Last Filed: 06/27/22 22:39> Time: 22:36 <Woo Castro MD - Last Filed: 06/27/22 22:39> Medical Decision Making Differential Diagnosis Differential Diagnoses: The differential diagnosis associated with the presentation includes (sciatica, radicular back pain, lumbago) <Woo Castro MD - Last Filed: 06/27/22 22:39> Independent Interpretation I performed an independent interpretation of an: Plain X-Ray (mild degenerative changes to the hip) <Woo Castro MD - Last Filed: 06/27/22 22:39> Discharge Plan Discharge Clinical Impression: Sciatica <NED Villagran - Last Filed: 06/27/22 20:29> Patient Disposition: Home, Self-Care <NED Villagran - Last Filed: 06/27/22 20:29> Instructions: Sciatica (ED) <NED Villagran - Last Filed: 06/27/22 20:29> Additional Instructions: increase gabapentin to 600mg twice a day <NED Villagran - Last Filed: 06/27/22 20:29> Prescriptions: No Action pioglitazone 45 mg tablet 45 mg PO DAILY Qty: 90 1RF fenofibrate nanocrystallized 145 mg tablet 145 mg PO DAILY Qty: 90 1RF atorvastatin 80 mg tablet 80 mg PO DAILY Qty: 90 1RF cholecalciferol (vitamin D3) 50 mcg (2,000 unit) tablet 50 mcg PO DAILY 90 Days Qty: 90 3RF omega-3 fatty acids-fish oil 300-1,000 mg capsule 1 cap PO DAILY 90 Days Qty: 90 3RF amoxicillin 500 mg tablet 500 mg PO BID 7 Days Qty: 14 0RF pantoprazole 40 mg tablet,delayed release (DR/EC) 40 mg PO DAILY 90 Days Qty: 90 1RF Trulicity 1.5 mg/0.5 mL pen injector 1.5 mg subcut QWEEK 90 Days Qty: 6.5 1RF lisinopril 5 mg tablet 5 mg PO DAILY Qty: 90 1RF metformin 1,000 mg tablet 1,000 mg PO BID 90 Days Qty: 180 1RF cyclobenzaprine 10 mg tablet 10 mg PO TID PRN (Reason: muscle spasm) Qty: 14 0RF ibuprofen 600 mg tablet 600 mg PO Q8H PRN (Reason: pain) Qty: 14 0RF lidocaine 5 % adhesive patch,medicated 1 patch topical DAILY Qty: 15 0RF Rx Instructions: leave on most painful area for up to 12 hrs triamcinolone acetonide 0.025 % cream 1 applic topical DAILY gabapentin 300 mg capsule 300 mg PO BID 30 Days Qty: 60 0RF acetaminophen 500 mg tablet 1,000 mg PO Q8H <NED Villagran Last Filed: 06/27/22 20:29> Referrals: Donovan Fajardo MD, PhD [Physician] - 5 days <NED Villagran - Last Filed: 06/27/22 20:29>
[2022-06-27] MEDS: Ketorolac Tromethamine 60 MG/2 ML VIAL IM (22:38)
== END 2022-06-27 23:01 | disposition home or self-care (01) ==
PROVIDERS: Emergency Provider Emergency Medicine; PCP Internal Medicine
DX: M54.42 Lumbago with sciatica, left side (principal); I10 Essential (primary) hypertension; E11.9 Type 2 diabetes mellitus without complications; E78.5 Hyperlipidemia, unspecified; Z79.899 Other long term (current) drug therapy
CPT/HCPCS: 73502; 96372; 99283; 99284; J1885

== ENCOUNTER → 2022-07-12 15:03 | Outpatient (BNVA) | payer OTHER, SELFPAY | PROVIDERS: PCP Internal Medicine; Visit Provider Neurological Surgery | DX: M54.16 Radiculopathy, lumbar region (principal) | CPT/HCPCS: 99202 ==

== ENCOUNTER 2022-08-03 18:17 | Outpatient (REF) | payer OTHER, SELFPAY ==
--- NOTE | ~2022-08-03 | MR_ITS ---
EXAMINATION: MR LUMBAR SPINE WITHOUT CONTRAST CLINICAL INFORMATION: Lumbar radiculopathy. COMPARISON: Lumbar spine radiographs 06/21/2022. TECHNIQUE: MRI of the lumbar spine was obtained using routine sequences without contrast. FINDINGS: Alignment is normal. Vertebral heights are preserved. There are minimal type I degenerative endplate changes at L3-L4. There is slight loss of intervertebral disc height and T2 signal intensity at L5-S1 related to disc degeneration. Disc desiccation is visualized at multiple additional levels. The tip of the conus medullaris is located at L1. No mass effect on the conus. Visualized distal cord signal intensity is normal. At L1-L2 the annular contour is normal. No canal or neuroforaminal compromise. At L2-L3 there is a bulging disc. Bilateral facet degenerative change. Mild canal stenosis. No mass effect on the traversing or foraminal nerve roots. At L3-L4 there is a bulging disc and bilateral facet degenerative change. Mild canal stenosis. No mass effect on the traversing or foraminal nerve roots. At L4-L5 there is a bulging disc. Bilateral facet degenerative change. No canal stenosis. No mass effect on the traversing or foraminal nerve roots. At L5-S1 there is a broad central protrusion superimposed upon a bulging disc. Bilateral facet degenerative change. There is subarticular zone narrowing causing compression of both traversing S1 nerve roots, greater on the left. No foraminal nerve root compression. Limited visualization of the retroperitoneal anatomy reveals no abnormal finding. Psoas and paraspinal musculature is symmetric. MR/MR lumbar spine wo con IMPRESSION: There is multilevel degenerative spondylosis of the lumbar spine. Mild canal stenosis at L2-L3 and L3-L4. A broad central protrusion in conjunction with facet degenerative change at L5-S1 causes compression of both traversing S1 nerve roots, greater on the left. Otherwise no substantial mass effect on the traversing or foraminal nerve roots elsewhere within the lumbar spine.
== END 2022-08-03 18:18 | disposition home or self-care (01) ==
LOC: HO.MRI 18:17
PROVIDERS: PCP Internal Medicine; Visit Provider Neurological Surgery
DX: M54.16 Radiculopathy, lumbar region (principal)
CPT/HCPCS: 72148

== ENCOUNTER → 2022-08-17 15:05 | Outpatient (BNVA) | payer OTHER, SELFPAY | PROVIDERS: Visit Provider Neurological Surgery | DX: M51.16 Intervertebral disc disorders with radiculopathy, lumbar region (principal) | CPT/HCPCS: 99212 ==

== ENCOUNTER 2022-10-25 06:53 | Outpatient (REF) | payer OTHER, SELFPAY ==
[2022-10-25 07:05] LABS: MANUAL DIFF FLAG NO
[2022-10-25 07:32] LABS: Basophils Percent Auto 0.7 % (0-2); Eosinophils Absolute Auto 0.1 X10*3/uL (0.0-0.4); Eosinophils Percent Auto 1.6 % (0-4); Hematocrit 39.6 % (37.0-47.0); Hemoglobin 13.3 g/dl (12.0-16.0); Imm Gran Abs Auto 0.03 X10*3/uL (0.00-0.03); Imm Gran Pct Auto 0.5 % (0.0-0.4); Lymphocytes Absolute Auto 1.2 X10*3/uL (1.2-4.9); Lymphocytes Percent Auto 20.9 % (20-40); Mean Corpuscular HGB Conc 33.6 g/dl (31.0-35.0); Mean Corpuscular Hemoglobin 30.2 pg (27.0-33.0); Mean Corpuscular Volume 89.8 fL (80.0-98.0); Monocytes Absolute Auto 0.4 X10*3/uL (0.1-1.2); Monocytes Percent Auto 7.9 % (2-11); Neutrophils Absolute Auto 3.8 x10*3/uL (2.0-8.3); Neutrophils Percent Auto 68.4 % (45-73); Platelet Count 342 X10*3/uL (160-400); Red Blood Count 4.41 X10*6/uL (4.20-5.50); Red Cell Distribution Width 12.2 % (11.0-16.0); White Blood Count 5.6 X10*3/uL (4.8-10.8)
[2022-10-25 07:55] LABS: Alanine Aminotransferase 18 U/L (0-31); Albumin Level 4.2 g/dL (3.5-5.0); Alkaline Phosphatase 68 U/L (39-117); Anion Gap 14 (12-20); Aspartate Amino Transferase 20 U/L (5-31); Bilirubin Total 0.6 mg/dL (0.0-1.0); Blood Urea Nitrogen 19 mg/dL (9-16); Calcium 10.3 mg/dL (8.4-10.2); Carbon Dioxide 24 mmol/L (22-29); Chloride 106 mmol/L (96-108); Cholesterol 144 mg/dL (<200); Estimated Glomerular Filt Rate > 60; Glucose Fasting 106 mg/dL (60-99); HDL Cholesterol 49 mg/dL (>40); LDL Cholesterol Calculated 60 mg/dL (<100); Potassium 3.8 mmol/L (3.3-5.1); Sodium 140 mmol/L (135-145); Total Protein 7.6 g/dL (6.5-8.0); Triglycerides 175 mg/dL (<150)
[2022-10-25 08:25] LABS: Folate 10.8 ng/mL (> or = 4.0); Vitamin B12 334 pg/mL (200-900)
[2022-10-25 10:41] LABS: Creatinine Urine 154.69 mg/dL
== END 2022-10-25 06:54 | disposition home or self-care (01) ==
LOC: HO.LAB 06:53
PROVIDERS: PCP Internal Medicine; Visit Provider Internal Medicine
DX: E55.9 Vitamin D deficiency, unspecified (principal); E11.65 Type 2 diabetes mellitus with hyperglycemia; E78.5 Hyperlipidemia, unspecified; E53.8 Deficiency of other specified B group vitamins; R53.82 Chronic fatigue, unspecified
CPT/HCPCS: 36415; 80053; 80061; 82043; 82306; 82607; 82746; 85025

== ENCOUNTER 2022-10-27 07:52 | Outpatient (AMB) | payer OTHER, SELFPAY ==
[2022-10-27 08:15] VITALS: BP 126/80; BMI 28.9
--- NOTE | 2022-10-27 08:15 | A.OFFPC_ITS ---
Vital Signs 10/27/22 08:15 Height 5 ft 6 in Weight 179 lb BMI 28.9 BP 126/80 Blood Pressure Location Lt brachial Position Sitting Intake Visit Reasons: 3 month follow up Intake Note: Patient here for a 3 month follow up Proof Carrier Required: No Accompanied by: Self / Same As Patient Allergies No Known Allergies [No Known Allergies*] Allergy (Verified 10/27/22 08:32) Medication List - Last Reconciled 10/27/22 by Chloe Vargas MD acetaminophen 1,000 mg PO Q8H atorvastatin 80 mg PO DAILY cholecalciferol (vitamin D3) 50 mcg PO DAILY 90 days cyclobenzaprine 10 mg PO Q8H PRN 30 days dulaglutide (Trulicity) 1.5 mg (0.5 mL) subcut QWEEK 90 days fenofibrate nanocrystallized 145 mg PO DAILY gabapentin 600 mg (2 x 300 mg) PO BID 30 days ibuprofen 600 mg PO Q8H PRN lidocaine 5% 1 patch topical DAILY lisinopril 5 mg PO DAILY metformin 1,000 mg PO BID 90 days omega-3 fatty acids-fish oil 300-1,000 mg 1 cap PO DAILY 90 days pantoprazole 40 mg PO DAILY 90 days pioglitazone 45 mg PO DAILY simethicone (Gas Relief (simethicone)) 125 mg PO TID PRN 30 days triamcinolone acetonide 0.025% 1 appl topical DAILY Tobacco use date assessed: 07/05/22 Dental Screening Dental Screen Date: 10/27/22 Did you have a dental visit in the last 12 months?: No Did you have a dental problem in the last 6 months where you did not have access to dental care?: No Was dental information given to patient?: Yes HPI HPI Comments History of Present Illness Details This is a 52-year-old female with diabetes mellitus type 2, hypertension and mixed hyperlipidemia that comes today complaining of right breast pain that started over a month ago at 06:00 o'clock. No breast mass or nipple retraction. No nipple discharge. A1c within goal. Blood pressure stable. LDL within goal. Compliant with medications. No chest pain or shortness of breath. [facility] Medical History Chronic fatigue Diabetes mellitus Essential hypertension GERD (gastroesophageal reflux disease) Hypovitaminosis D IBS (irritable bowel syndrome) Left fibular fracture Membranous glomerulonephritis Mixed hyperlipidemia Neuropathy Right hand pain Surgical History History of esophagogastroduodenoscopy (EGD) History of hysteroscopy History of right salpingo-oophorectomy Hx of colonoscopy Family History Father No problems noted. Mother Hypertension Maternal Grandmother Breast cancer Maternal Aunt Breast cancer Maternal Aunt Uterine cancer Maternal Uncle Diabetes Family/Other Breast cancer Social History Housing: Apartment Alcohol intake: current Alcohol intake frequency: holidays/special occasions only Alcohol type: wine and hard liquor Patient Tobacco Use Status: Never used Tobacco e-Cigarette/Vaping Use: Never Used Second Hand Smoke Exposure: No Advance Directives Date on File: 12/10/19 service: No Current occupational status: employed Current occupational exposures/hazards: No Cognitive needs: No Hearing needs: No Vision needs: No Questionnaire Thrive Questionnaire Date Thrive assessed: 07/05/22 LANCE-7 AMB Questionnaire LANCE-7 Date LANCE - 7 assessed: 07/05/22 Source: Developed by Drs. Philip Crouch, Annel Hinton, Gerry Jeter and colleagues, with an educational tone from [employer]. Review of Systems Const All systems reviewed & are unremarkable except as noted in HPI and below Eyes Reports no additional complaints, Denies change in vision and Denies other visual disturbances Card Denies chest pain at rest, Denies chest pain with activity, Denies edema, Denies irregular heart rhythm, Denies claudication, Denies dyspnea, Denies dyspnea on exertion, Denies orthopnea, Denies paroxysmal nocturnal dyspnea and Denies slow heart rate Resp Denies cough, Denies dyspnea and Denies dyspnea on exertion GI Denies abdominal pain, Denies change in bowel habits, Denies excessive flatus, Denies nausea and Denies vomiting Denies urinary incontinence, Denies urinary hesitancy and Denies urinary urgency Musc Denies abnormal gait, Denies atrophy, Denies deformity and Denies limited range of motion Skin/Breast Denies bleeding lesions, Reports breast pain, Denies changing lesions and Denies rash Neuro Denies abnormal gait and Denies lack of coordination Physical exam (Primary Care) Vital Signs: Last Vital Signs BP 126/80 10/27/22 08:15 BMI result Body Mass Index 28.9 Tobacco/Smoking Status: Tobacco use Status Tobacco use date assessed 07/05/22 10/27/22 08:18 Patient Tobacco Use Status Never used Tobacco 10/27/22 08:18 e-Cigarette/Vaping Use Never Used 10/27/22 08:18 Thrive Assessment: Date of Thrive Assessment Date Thrive assessed 07/05/22 10/27/22 08:18 Const Orientation/consciousness: patient oriented x3 Eyes General: appearance normal, both eyes and all related structures Eyelids: Yes eyelids normal Conjunctivae: conjunctivae normal Neck Neck: Yes normal visual inspection and Yes supple Chest Breast/axilla palpation: abnormal palpation of the breast (Breast pain at 06:00 o'clock) Resp Effort & Inspection: normal respiratory effort Auscultation: clear to auscultation bilaterally Cardio Jugular venous distension: no JVD Rate: regular rate Rhythm: regular rhythm Heart sounds: S1 normal heart sound present and S2 normal heart sound present Neuro General: patient oriented x3 and no focal motor deficits Extrem General: Yes full ROM Results AMB Hemoglobin A1c AMB Hemoglobin A1c 6.0 % Last Edit by FERNANDO Reza on 10/27/22 08:3 2 Assessment and Plan Assessment & Plan (1) Diabetes mellitus: Code(s): E11.9 - Type 2 diabetes mellitus without complications Qualifiers: Diabetes mellitus type: type 2 Diabetes mellitus terminal make up operator insulin use: without terminal make up operator use Diabetes mellitus complication status: with hyperglycemia Qualified Code(s): E11.65 - Type 2 diabetes mellitus with hyperglycemia Plan: Continue metformin, Trulicity and Actos. A1c goal is equal or less than 7%. (2) Essential hypertension: Code(s): I10 - Essential (primary) hypertension Plan: Continue lisinopril. Blood pressure goal is equal or less than 130/80. (3) Mixed hyperlipidemia: Code(s): E78.2 - Mixed hyperlipidemia Plan: Continue statins and fibrates. LDL goal should be less than 70. (4) Breast pain, right: Comment: At 06:00 o'clock Code(s): N64.4 - Mastodynia Plan: Diagnostic mammogram and ultrasound of the breast ordered. Orders: Orders MM diagnostic mammo BI Today N64.4 - Mastodynia US breast RT complete Today N64.4 - Mastodynia AMB Hemoglobin A1c Today E11.9 - Type 2 diabetes mellitus without complications Coding Level of Care Code Est Pt Level 4 (82658) Diagnoses Diabetes mellitus E11.65 Diabetes mellitus type: type 2 Diabetes mellitus terminal make up operator insulin use: without intermediate use Diabetes mellitus complication status: with hyperglycemia Essential hypertension I10 Mixed hyperlipidemia E78.2 Breast pain, right N64.4 Time Spent (min) 24
== END 2022-10-27 08:42 | disposition home or self-care (01) ==
PROVIDERS: PCP Internal Medicine; Visit Provider Internal Medicine
DX: E11.65 Type 2 diabetes mellitus with hyperglycemia (principal); I10 Essential (primary) hypertension; E78.2 Mixed hyperlipidemia; N64.4 Mastodynia; E11.9 Type 2 diabetes mellitus without complications
CPT/HCPCS: 83036; 99214

== ENCOUNTER 2022-11-15 12:47 | Outpatient (REF) | payer OTHER, SELFPAY ==
[2022-11-15 14:20] LABS: Appearance Urine Cloudy; Color Urine Yellow; Glucose Urine UA Negative (Negative); Leukocyte Esterase Urine Large (3+) (Negative); Nitrite Urine Negative (Negative); PH 5.5 (5.0-9.0); Specific Gravity - Urine 1.015 (1.005-1.025); UMIC TRIGGER UACC YES; Urine Blood Moderate (2+) (Negative); Urine Ketones Negative (Negative); Urine Protein 30 (1+) mg/dL (Neg-Trace)
[2022-11-15 14:47] LABS: Bacteria Urine Trace (None Seen); Hyaline Casts Urine 0-2 /LPF (0-2); UACC Culture Trigger YES; WBC Urine 21-50 /HPF (0-5)
== END 2022-11-15 12:48 | disposition home or self-care (01) ==
LOC: HO.LAB 12:47
PROVIDERS: PCP Internal Medicine; Visit Provider Internal Medicine
DX: R30.0 Dysuria (principal)
CPT/HCPCS: 81001; 87086

== ENCOUNTER 2022-11-24 06:04 | Day surgery (SDC) | payer OTHER, SELFPAY ==
[2022-11-16 10:19] VITALS: BMI 28.9
--- NOTE | 2022-11-23 08:31 | HO.ANESPROP2 ---
Documented by User: Leticia Griffin NP 11/23/22 08:37 HPI - Anesthesia Eval Consult details Narrative: 52yo F for L5-S1 MLD Microlumbar discectomy PMFSH Active Problems Active Problems: All Active Problems (Updated 11/16/22 @ 10:19 by Adia Connor RN) Breast pain, right (Acute) Lumbar disc herniation with radiculopathy (Acute) Acute lumbar radiculopathy (Acute) Lumbar degenerative disc disease (Acute) Fracture of distal end of right fibula (Acute) Conjunctivitis (Acute) Chronic fatigue (Acute) Right hand pain (Acute) Hypovitaminosis D (Acute) Diabetes mellitus (Acute) Mixed hyperlipidemia (Acute) Essential hypertension (Acute) GERD (gastroesophageal reflux disease) (Acute) Past Medical History Medical History UTI (urinary tract infection) Chronic fatigue Left fibular fracture Membranous glomerulonephritis Neuropathy IBS (irritable bowel syndrome) Right hand pain Hypovitaminosis D Diabetes mellitus Mixed hyperlipidemia Essential hypertension GERD (gastroesophageal reflux disease) Family History Family History Father No problems noted. Mother Hypertension Maternal Grandmother Breast cancer Maternal Aunt Breast cancer Maternal Aunt Uterine cancer Maternal Uncle Diabetes Family/Other Breast cancer Family history of problems with anesthesia: No Surgical History Surgical History Hx of hysterectomy History of esophagogastroduodenoscopy (EGD) Hx of colonoscopy History of hysteroscopy History of Problems with Anesthesia: No Social History Social History Housing: Apartment Are you a primary point of care technician to a significant other at home: Yes (daughter, family will help post-op) Do you presently have visiting nurse or other home services: No Alcohol intake: current Alcohol intake frequency: does not drink Alcohol type: wine and hard liquor Patient Tobacco Use Status: Never used Tobacco e-Cigarette/Vaping Use: Never Used Second Hand Smoke Exposure: No Use of substances other than those prescribed or required for medical reasons: No Have you been hit, kicked, punched, or otherwise hurt by someone within the past year? If so, by whom?: No Are you DNR?: No Advance Directives: No Advance Directives Information Provided: Yes Advance Directives on File: Yes Advance Directives Date on File: 12/10/19 Recently lost weight without trying: No Nutrition Risks: No Nutritional Risk Patient : No FDLMP: 2017 service: No Current occupational status: employed Current occupational exposures/hazards: No Cognitive needs: No Hearing needs: No Vision needs: No Meds Allergies Allergy/AdvReac Type Severity Reaction Status Date / Time No Known Allergies Allergy Verified 10/27/22 08:32 [No Known Allergies*] Home Medications Medication Instructions Recorded Confirmed Last Taken Type triamcinolone acetonide 0.025 % 1 applic topical DAILY 01/28/20 11/16/22 Unknown History topical cream gabapentin 300 mg capsule 600 mg PO BID PRN Pain 11/16/22 11/16/22 Unknown History Exam Exam Date and Time: November 23, 2022 0831 Height,Weight and Vital Signs: Height 5 ft 6 in Weight 81.193 kg Pertinent Lab Results Pertinent Lab Results: Laboratory Tests 10/25/22 07:03 WBC 5.6 Hgb 13.3 Hct 39.6 Plt Count 342 Sodium 140 Potassium 3.8 Chloride 106 Carbon Dioxide 24 BUN 19 H Creatinine 0.74 Assessment and Plan Assessment Anesthesia Assessment: Chart Reviewed Final Anesthetic Review Family History of Problems with Anesthesia: No History of Problems with Anesthesia: No Documented by User: Vu Madera MD 11/24/22 07:29 [facility] Past Medical History Medical History UTI (urinary tract infection) Chronic fatigue Left fibular fracture Membranous glomerulonephritis Neuropathy IBS (irritable bowel syndrome) Right hand pain Hypovitaminosis D Diabetes mellitus Mixed hyperlipidemia Essential hypertension GERD (gastroesophageal reflux disease) Family History Family History Father No problems noted. Mother Hypertension Maternal Grandmother Breast cancer Maternal Aunt Breast cancer Maternal Aunt Uterine cancer Maternal Uncle Diabetes Family/Other Breast cancer Surgical History Surgical History Hx of hysterectomy History of esophagogastroduodenoscopy (EGD) Hx of colonoscopy History of hysteroscopy Social History Social History Housing: Apartment Are you a primary point of care technician to a significant other at home: Yes (daughter, family will help post-op) Do you presently have visiting nurse or other home services: No Alcohol intake: current Alcohol intake frequency: does not drink Alcohol type: wine and hard liquor Patient Tobacco Use Status: Never used Tobacco e-Cigarette/Vaping Use: Never Used Second Hand Smoke Exposure: No Use of substances other than those prescribed or required for medical reasons: No Have you been hit, kicked, punched, or otherwise hurt by someone within the past year? If so, by whom?: No Are you DNR?: No Advance Directives: No Advance Directives Information Provided: Yes Advance Directives on File: Yes Advance Directives Date on File: 12/10/19 Recently lost weight without trying: No Nutrition Risks: No Nutritional Risk Patient : No FDLMP: 2017 service: No Current occupational status: employed Current occupational exposures/hazards: No Cognitive needs: No Hearing needs: No Vision needs: No Meds Allergies Allergy/AdvReac Type Severity Reaction Status Date / Time No Known Allergies Allergy Verified 10/27/22 08:32 [No Known Allergies*] Home Medications Medication Instructions Recorded Confirmed Last Taken Type triamcinolone acetonide 0.025 % 1 applic topical DAILY 01/28/20 11/16/22 Unknown History topical cream gabapentin 300 mg capsule 600 mg PO BID PRN Pain 11/16/22 11/16/22 Unknown History Exam Airway Mallampati Class: II TM Dist: >3cm Neck ROM: Full Loose/Missing/Broken Teeth: Yes Assessment and Plan Assessment Anesthesia Assessment: Anesthesia Plan Discussed Final Anesthetic Review NPO: Yes ASA Class: II Final Preanesthetic Review: No Changes in Pt Med Stat, Meds/Allgs Chart Reviewed, Consent Obtained/Reviewed and Anes Risks/Benef Reviewed Patient Risk: Low Procedure Risk: Low Anesthetic Plan Anesthetic Plan: GA Disposition: Standard PACU
[2022-11-24] VITALS (10 sets, daily range): BP systolic 119–169; BP diastolic 72–97; PULSE 62–93; RESP 12–20; TEMP 36.6; O2SAT 98
--- NOTE | ~2022-11-24 | FL_ITS ---
EXAMINATION: XR FLUOROSCOPY WITH IMAGES CLINICAL INFORMATION: L5-S1 MLD microlumbar discectomy, left. COMPARISON: None available. TECHNIQUE: Fluoroscopy Supervised By: Dr. Donovan Fajardo. Fluoroscopy Time: 0.0 minutes. Cumulative Dose: 3.76 mGy. DAP: 0.523 Gycm2. Images: 2. FINDINGS: Images demonstrate surgical instruments posterior to the L5-S1 disc space level. FL/FL guidance in OR IMPRESSION: Fluoroscopy guidance for lumbar spine surgery.
--- NOTE | 2022-11-24 05:58 | ECG_ITS ---
Test Reason : pre op Blood Pressure : / mmHG Vent. Rate : 084 BPM Atrial Rate : 084 BPM P-R Int : 146 ms QRS Dur : 090 ms QT Int : 378 ms P-R-T Axes : 051 -40 017 degrees QTc Int : 446 ms Normal sinus rhythm Left axis deviation Nonspecific T wave abnormality Abnormal ECG When compared with ECG of 06-JAN-2018 04:17, Nonspecific T wave abnormality is now Present Referred By: Leticia Griffin Electronically Signed By:ALBA POSADA
[2022-11-24 06:16] LABS: Glucose, Whole Blood 126 mg/dL (60-115)
[2022-11-24] MEDS: Gabapentin 300 MG CAPSULE PO (06:20)
[2022-11-24] MEDS: methocarbamoL 750 MG TABLET PO (06:20)
[2022-11-24] MEDS: Lactated Ringers 1,000 ML 100 ML IVCONT (06:33)
--- NOTE | 2022-11-24 07:00 | P.HPSUR_ITS ---
Pre-Procedural Eval Section A Date of Service: 11/24/22 Section B Chief Complaint: Intervertebral disc disorders with radiculopathy Allergies: Allergies Allergy/AdvReac Type Severity Reaction Status Date / Time No Known Allergies Allergy Verified 10/27/22 08:32 [No Known Allergies*] Review of Systems Sugical H&P ROS: Negative: Constitution, Cardiovascular, Respiratory, N eurological, Psychiatric, Hem-Onc, Allergic/Immunologic, Gastrointestinal, Genitourinary, Musculoskeletal, Integumentary, Endocrine and Eyes/Ears/Nose/Throat Exam Surgical H&P Exam: Not Evaluated: HEENT, Not Evaluated: Heart, Not Evaluated: Lungs, Not Evaluated: Extremities, Not Evaluated: Abdomen, Not Evaluated: Skin and Not Evaluated: Neurological Plan I have reviewed the history and physical and performed a pertinent physical examination on my patient. No changes have occurred unless specified. Plan remains the same, L5-S1 microdiskectomy Time Spent With Patient Time: Total time managing care of this patient today _10__ minutes.
--- NOTE | 2022-11-24 10:05 | PM.DS ---
DS: Providers Provider Date of Service: 11/24/22 Primary care physician: Chloe Vargas MD DS: Summary Time Spent with Patient Time attestation: Total time managing care of this patient today ____ minutes. Discharge coordination time: Less than 30 minutes Quality: Safe Use of Opioids Does Pt have an Active Cancer Diagnosis on the Problem List?: No Quality: Stroke Does the patient have a stroke diagnosis?: No Physical Exam Vital Signs: Vital Signs: Last Vital Signs Temp 98 F 11/24/22 06:14 Pulse 62 11/24/22 06:14 Resp 20 11/24/22 06:14 BP 169/90 H 11/24/22 06:14 Pulse Ox 98 11/24/22 06:14 O2 Del Method Room Air 11/24/22 06:14 BMI result Body Mass Index 28.9 DS: Data Data Completed and Pending Labs on day of discharge: Laboratory Results - last 24 hr 11/24/22 11/24/22 06:12 06:21 POC Glucose 126 H Blood Type O Negative Antibody Screen NEGATIVE Discharge Plan Discharge Patient Disposition: Home, Self-Care Referrals: Chloe Estrada MD [Primary Care Provider] - 1 Week Discharge Medications: Continued cholecalciferol (vitamin D3) 50 mcg (2,000 unit) tablet 50 mcg PO DAILY 90 Days Qty: 90 3RF omega-3 fatty acids-fish oil 300-1,000 mg capsule 1 cap PO DAILY 90 Days Qty: 90 3RF pantoprazole 40 mg tablet,delayed release (DR/EC) 40 mg PO DAILY 90 Days Qty: 90 1RF lisinopril 5 mg tablet 5 mg PO DAILY Qty: 90 1RF metformin 1,000 mg tablet 1,000 mg PO BID 90 Days Qty: 180 1RF fenofibrate nanocrystallized 145 mg tablet 145 mg PO DAILY Qty: 90 1RF atorvastatin 80 mg tablet 80 mg PO DAILY Qty: 90 1RF pioglitazone 45 mg tablet 45 mg PO DAILY Qty: 90 1RF nitrofurantoin macrocrystal 100 mg capsule 100 mg PO BID 7 Days Qty: 14 0RF Rx Instructions: must administer with a meal/food gabapentin 300 mg capsule 600 mg PO BID PRN (Reason: Pain) triamcinolone acetonide 0.025 % cream 1 applic topical DAILY Trulicity 1.5 mg/0.5 mL pen injector 1.5 mg subcut QWEEK 90 Days Qty: 6.5 1RF simethicone [Gas Relief (simethicone)] 125 mg tablet,chewable 125 mg PO TID PRN (Reason: abdominal distention) 30 Days Qty: 90 1RF Discharge Orders: Discharge Order (Routine); Ordered 11/24/22 Ordered By: Yanick Hobson Diet: Advance to usual diet Activity on Discharge: As tolerated Activity Restrictions/Additional Instructions: After your spinal surgery we ask you to observe the following restrictions/guidelines: Activity: It is normal to feel some discomfort as you increase your activity, but that will improve with time. We ask you avoid heavy lifting or acitivities that cause pain. As a general rule, 8lbs is a safe limit for lifting right after surgery. Walk as much as you feel comfortable but not to exhaustion. You will feel extra tired the first few days after surgery. Stay well hydrated. It is OK to walk up and down stairs You may return to driving when you are off narcotics (such as vicodin, oxycodone, dilaudid, etc), and you are back to normal functional capacity. If you have any concerns please check with office before driving. Return to work is specific to each patient and each surgery, so please speak with your doctor/PA at first follow up. Please bring paperwork such as FMLA at that time if you need it filled out. Medications: We will give you a short supply of narcotics after surgery (usually one weeks worth). If you need more please call the office but do not use more than prescribed. You will need to give our office 48 hours notice if you need narcotics refilled and we do not fill narcotics on weekends or evenings. If you are on a narcotic, it is a good idea to take a stool softener such as colace or senna to avoid constipation If you take blood thinner such as aspirin, Plavix, Coumadin, Effient, Eliquis etc for conditions such as Afib, DVT, Pulmonary embolus, coronary disease, stents etc please speak with your surgeon about specific details as to when you can resume these medications. You can resume NSAIDs on post op day 1 (eg: Motrin, Naproxen, etc). Follow up: Please call the office, , after surgery to arrange a 3 week follow up for wound check. Wound Care: You may remove your dressing on the first day after surgery. You may leave open to air. Please do not remove the steri strips underneath. they will fall off on their own in one week. IT IS NORMAL FOR THE WOUND TO OOZE OR BE BLOODY FOR A FEW DAYS AFTER SURGERY. IF THIS HAPPENS JUST PLACE NEW DRESSING OVER IT TO AVOID STAINING CLOTHES. You may shower on post op day # 1 We ask that you do not let the water soak the wound. If it does get wet, just towel dry lightly. Please do not scrub your incision or place any type of chemical/ointment on the wound. No tub baths, pools or jacuzzis for one month. If you have any leaking or redness from your wound, or fevers, please call the office.
--- NOTE | 2022-11-24 10:16 | W.PM.OPN ---
Operative Note Operative Note Date of Service: 11/24/22 Narrative: Preoperative diagnosis: Left S1 radiculopathy due to disc herniation Postoperative diagnosis: Same Procedure: left L5-[id number] with microscope Surgeon: Donovan Fajardo MD, PhD Information Technology Account Manager: Pascual Banda PA-C This 52-year-old female is suffering from a left radiculopathy caused by a compression of the left S1 nerve root due to a centrally disc herniation with compression of the S1 nerve root. The patient was offered a lumbar microdiskectomy to decompress the nerve root. The procedure complications were explained. The patient was consented. The patient was brought to the operating room and endotracheally intubated. The patient was turned in a prone position on the Shlomo frame. Prepping and draping was done followed by time-out. The initial approach was done by the physician assistant softball coach. A mid lumbar incision was made followed by release of the paravertebral muscles on the left side to expose the L5-S1 interspace. An intraoperative x-rays obtained to confirm the correct level. The microscope was brought in. I took over the procedure.A Left L5 laminotomy was done followed by opening of the flavum ligament. A large structure was encountered and I was unable to visualize if this was the nerve root or the disc. I decided to work our way up cranially to look for the origin of the S1 nerve root. A partial facetectomy had to be done to get a good view an access. Finally it became clear that the S1 nerve root was the enlarged structure. I was able to retract this large structure slightly medial to expose the underlying disc. I used nerve hook to see if there is any fragments sitting medial from the nerve root. This was indeed the case. Large point fragments of endplate or sticking into the medial part of the S1 nerve. These pieces were carefully removed which led to an initial decompression of the nerve. Then several fragments of disc herniation were resected to further decompress the nerve. The nerve root was very inflamed from the compression. The disc space was inspected and any residual disc fragments were removed. This resulted in an excellent decompression of the S1 nerve root. Hemostasis was done. The microscope was removed. Marcaine was injected intramuscularly.The incision was closed in two layers. Steri-Strips used to approximate seizure. An op-site were taken there was used to cover the incision. All sponge and needle counts were correct. Patient was extubated and transported in stable condition to recovery room. this procedure was done with the aid of a physician assistant softball coach who performed the initial exposure until the microscope was brought in and performed the closure of the incision. Anesthesia: General Blood loss: 10 mL Complications: None Specimen: None Disposition: Discharge home
[2022-11-24] MEDS: ondansetron HCL 4 MG/2 ML VIAL IVPUSH (10:17)
== END 2022-11-24 12:15 | disposition home or self-care (01) ==
PROVIDERS: PCP Internal Medicine; Visit Provider Neurological Surgery
PROC: (CPT 63030; principal; 2022-11-24 07:30)
DX: M51.16 Intervertebral disc disorders with radiculopathy, lumbar region (principal); R53.82 Chronic fatigue, unspecified; E11.65 Type 2 diabetes mellitus with hyperglycemia; E55.9 Vitamin D deficiency, unspecified; E78.2 Mixed hyperlipidemia; I10 Essential (primary) hypertension; G62.9 Polyneuropathy, unspecified; N64.4 Mastodynia; Z79.899 Other long term (current) drug therapy; Z79.85 Long-term (current) use of injectable non-insulin antidiabetic drugs; Z79.1 Long term (current) use of non-steroidal anti-inflammatories (NSAID)
CPT/HCPCS: 63030; 82947; 86850; 86900; 86901; 93005; J0131; J0690; J1100; J1885; J2250; J2405; J3010

== ENCOUNTER → 2022-11-24 06:04 | Outpatient (BNV) | payer OTHER, SELFPAY | PROVIDERS: PCP Internal Medicine; Visit Provider Physician Assistant | DX: M51.16 Intervertebral disc disorders with radiculopathy, lumbar region (principal) | CPT/HCPCS: 63030; 99499 ==

== ENCOUNTER 2022-12-01 14:24 | Outpatient (REF) | payer OTHER, SELFPAY ==
--- NOTE | ~2022-12-01 | US_ITS ---
EXAMINATION: MM DIAGNOSTIC DIGITAL BREAST TOMOSYNTHESIS, BILATERAL US BREAST LIMITED, RIGHT MAMMOGRAPHY: CLINICAL INFORMATION: Patient complaining of right breast pain spanning from the inferior area U the 6:00 region. Patient due for bilateral screening. COMPARISON: Mammography: 01/11/2022, 01/09/2021, 08/24/2019, 05/13/2017. TECHNIQUE: Digital breast tomosynthesis is performed in both the craniocaudal and mediolateral oblique views along with computer-aided detection (CAD). Synthesized 2D images are generated from the tomosynthesis. FINDINGS: The breasts are almost entirely fatty (ACR BI-RADS breast composition Category a). There are no suspicious masses, suspicious grouped calcifications, or areas of architectural distortion. The parenchymal pattern is stable from prior exams. No mammographic abnormality is noted in the inferior or periareolar right breast. ULTRASOUND: CLINICAL INFORMATION: As above. COMPARISON: None relevant. TECHNIQUE: Targeted sonographic evaluation was performed using a high frequency linear transducer. Attention to the retroareolar and inferior right breast was given. Selected archived documentation. FINDINGS: RIGHT BREAST: There is a mixture of fatty and fibroglandular tissue. No suspicious mass is seen. There is no pathologic acoustic shadowing. There is no cystic abnormality. There is no edema in the soft tissue planes. No ultrasonographic correlate to the region of inferior right breast pain. US/US breast RT limited mamm only IMPRESSION: There are no mammographic or sonographic findings suspicious for malignancy. There is no imaging correlate to the inferior and periareolar right breast pain. Recommend clinical management of the patient's complaints. Otherwise, recommend resuming annual screening mammography. OVERALL ASSESSMENT: Mammography: BI-RADS 1 - Negative Ultrasound: BI-RADS 1 - Negative RECOMMENDATION: 1. Patient should be managed based on the clinical impression 2. Otherwise, routine annual screening mammography. Results were provided to the patient at time of visit by the technologist. This patient's information was entered into a reminder system with a target due date for their next mammogram.
== END 2022-12-01 14:25 | disposition home or self-care (01) ==
LOC: HO.MAMMO 14:24
PROVIDERS: PCP Internal Medicine; Visit Provider Internal Medicine
DX: N64.4 Mastodynia (principal)
CPT/HCPCS: 76642; 77062; 77066

== ENCOUNTER 2022-12-14 09:55 | Outpatient (AMB) | payer OTHER, SELFPAY ==
--- NOTE | 2022-12-14 10:05 | HO.SPINEOV ---
Intake Intake Visit Reasons: 1st post op Intake Note: Ms. Sweeney is here today for her 1st pos-op visit. 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 She reports she is mostly satisfied with the surgery and feels slightly better than she did pre-operatively. She is up, walking around, and completing the majority of her ADLs, but continues to have shooting pain down the posterior aspect of her left lower extremity. She expressed concerns regarding her left-sided radiculopathy as she had a preoperatively, but does state that has improved slightly in feels less aggressive than it was prior to her surgery. She states that she is only taking 800 mg ibuprofen since her surgery and has not used any narcotic pain medication. She came in today inquiring about the possibility of having an additional medication added alongside her gabapentin which she takes daily. She again asked to not have any narcotic medications added to her medication regimen, we discussed the possibility of adding Robaxin which he was agreeable to. Ideally this will help her with muscle spasm/muscle pains and provide her with the desired relief. She is encouraged to reach back out to our office in the next few weeks she feels as though her radiculopathy continues the way it currently is without any improvement. Strength is full and symmetric in upper and lower extremities, despite pain elicited on left lower extremity. Mobility is intact. Patient reports decreased sensation of left calf/foot which he states was present previous to surgery but has not yet improved. Rest of sensation is grossly intact. Patient ambulates with an antalgic gait favoring the right side. Is able to rise from seated position with the assistance of her chair. Incision sites are closed, well healing, with no signs of drainage. We will follow-up with the patient in 6 weeks for his 2nd postoperative visit. Robaxin will be sent to her pharmacy electronically. Yanick Fajardo MD,PhD [facility] Medications: New methocarbamol 750 mg PO BID 30 tabs 0RF Moderate-severe spasms / pain Coding Level of Care Code Global (24715) Diagnoses Lumbar disc herniation with radiculopathy M51.16
== END 2022-12-14 10:19 | disposition home or self-care (01) ==
PROVIDERS: PCP Internal Medicine; Visit Provider Physician Assistant
DX: M51.16 Intervertebral disc disorders with radiculopathy, lumbar region (principal)
CPT/HCPCS: 99024

== ENCOUNTER → 2022-12-14 09:55 | Outpatient (BNVA) | payer OTHER, SELFPAY | PROVIDERS: PCP Internal Medicine; Visit Provider Physician Assistant ==

== ENCOUNTER 2023-01-04 13:40 | Outpatient (AMB) | payer OTHER, SELFPAY ==
--- NOTE | 2023-01-04 13:53 | A.SPINEOV_ITS ---
Intake Intake Visit Reasons: discuss FMLA paper work Intake Note: Ms. Sweeney is her today to discuss FMLA paper work. Allergies No Known Allergies [No Known Allergies*] Allergy (Verified 10/27/22 08:32) Assessment & Plan Assessment & Plan (1) S/P spinal surgery: Code(s): Z98.890 - Other specified postprocedural states Plan Greta came to the office today to discuss FMLA paperwork. She does not feel rates return to work as of yet and feels that she still has soreness/ tenderness in her back after lifting minimal amounts of things around her house throughout the day. 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 If she has to be out of work for 2 more weeks so she can gradually begin increasing her strength while doing at-home exercise. We further discussed return to activity recommendations. Her paperwork was filled out for her and she will be out until 01/17/2023. She will not need to follow-up in office again, unless she feels that she needs to. Yanick Fajardo MD,PhD [facility] Coding Level of Care Code Est Pt Level 3 (31549) Diagnoses S/P spinal surgery Z98.890
== END 2023-01-04 14:25 | disposition home or self-care (01) ==
PROVIDERS: PCP Internal Medicine; Visit Provider Physician Assistant
DX: Z98.890 Other specified postprocedural states (principal)
CPT/HCPCS: 99024

== ENCOUNTER → 2023-01-04 13:40 | Outpatient (BNVA) | payer OTHER, SELFPAY | PROVIDERS: PCP Internal Medicine; Visit Provider Physician Assistant | DX: Z48.89 Encounter for other specified surgical aftercare (principal) | CPT/HCPCS: 99212 ==

== ENCOUNTER 2023-01-25 13:55 | Outpatient (AMB) | payer OTHER, SELFPAY ==
--- NOTE | 2023-01-25 14:04 | HO.SPINEOV ---
Intake Intake Visit Reasons: 2nd post op Intake Note: Ms. Sweeney is here today for her 2nd post-op visit. 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 She reports that the large majority of her symptoms have resolved, and that she has no more radicular pain shooting down her left leg. She does still state that she has some numbness in the bottom of her foot, which has been longstanding. 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 On examination today she has no neurological deficits, is able to ambulate well in rises from a seated position without difficulty. Her incision site is closed and well healed. She has no significant concerns or complaints. It was recommended to her to continue light exercise that is non-weightbearing, and to follow up with our office as needed. She was reassured that her light aches/pains are normal in all part of the healing process. Yanick Fajardo MD,PhD [facility] Coding Level of Care Code Global (13363) Diagnoses S/P spinal surgery Z98.890
== END 2023-01-25 14:49 | disposition home or self-care (01) ==
PROVIDERS: PCP Internal Medicine; Visit Provider Physician Assistant
DX: Z98.890 Other specified postprocedural states (principal)
CPT/HCPCS: 99024

== ENCOUNTER → 2023-01-25 13:55 | Outpatient (BNVA) | payer OTHER, SELFPAY | PROVIDERS: PCP Internal Medicine; Visit Provider Physician Assistant ==

== ENCOUNTER 2023-02-28 16:23 | Outpatient (AMB) | payer OTHER, SELFPAY ==
--- NOTE | 2023-02-28 16:30 | A.OFFPC_ITS ---
Vital Signs 02/28/23 16:32 02/28/23 16:53 Height 5 ft 6 in Weight 186 lb BMI 30.0 BP 152/90 H 150/90 H Blood Pressure Location Lt brachial Lt brachial Position Sitting Sitting Intake Visit Reasons: bp,dm Intake Note: Patient here for a follow up DM, BP Black Oxide Operator Required: No Accompanied by: Self / Same As Patient Allergies No Known Allergies [No Known Allergies*] Allergy (Verified 02/28/23 16:38) Medication List - Last Reconciled 02/28/23 by Chloe Vargas MD atorvastatin 80 mg PO DAILY cholecalciferol (vitamin D3) 50 mcg PO DAILY 90 days dulaglutide (Trulicity) 1.5 mg (0.5 mL) subcut QWEEK 90 days fenofibrate nanocrystallized 145 mg PO DAILY gabapentin 600 mg PO BID PRN lisinopril 5 mg PO DAILY metformin 1,000 mg PO BID 90 days methocarbamol 750 mg PO BID nirmatrelvir-ritonavir 300 mg (150 mg x 2)-100 mg (Paxlovid) 3 ea PO PER PKG DIR 5 days nitrofurantoin macrocrystal 100 mg PO BID 7 days omega-3 fatty acids-fish oil 300-1,000 mg 1 cap PO DAILY 90 days pantoprazole 40 mg PO DAILY 90 days pioglitazone 45 mg PO DAILY simethicone (Gas Relief (simethicone)) 125 mg PO TID PRN 30 days triamcinolone acetonide 0.025% 1 appl topical DAILY Tobacco use date assessed: 07/05/22 Dental Screening Dental Screen Date: 02/28/23 Did you have a dental visit in the last 12 months?: Yes Did you have a dental problem in the last 6 months where you did not have access to dental care?: No Was dental information given to patient?: Patient has dentist HPI HPI Comments History of Present Illness Details This is a 52-year-old female with diabetes mellitus type 2, hypertension, mixed hyperlipidemia and GERD that comes today complaining of left leg pain in lower leg crampy like in quality. She had spine surgery in November 2022. Ultrasound venous duplex will be ordered to rule out DVT. A1c within goal. Blood pressure elevated and will be recheck in 3 weeks by nurse navigator. Last LDL was within goal. GERD stable with PPIs. [facility] Medical History (Updated 02/28/23 @ 16:45 by Chloe Vargas MD) UTI (urinary tract infection) Chronic fatigue Left fibular fracture Membranous glomerulonephritis Neuropathy IBS (irritable bowel syndrome) Right hand pain Hypovitaminosis D Diabetes mellitus Mixed hyperlipidemia Essential hypertension GERD (gastroesophageal reflux disease) Surgical History History of back surgery Hx of hysterectomy History of esophagogastroduodenoscopy (EGD) Hx of colonoscopy History of hysteroscopy Family History Father No problems noted. 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 other at home: Yes (daughter, family will help post-op) Do you presently have visiting nurse or other home services: No Alcohol intake: current Alcohol intake frequency: does not drink Alcohol type: wine and hard liquor Patient Tobacco Use Status: Never used Tobacco e-Cigarette/Vaping Use: Never Used Second Hand Smoke Exposure: No Advance Directives Date on File: 12/10/19 service: No Current occupational status: employed Current occupational exposures/hazards: No Cognitive needs: No Hearing needs: No Vision needs: No Questionnaire Thrive Questionnaire Date Thrive assessed: 07/05/22 LANCE-7 AMB Questionnaire LANCE-7 Date LANCE - 7 assessed: 07/05/22 Source: Developed by Drs. Philip Crouch, Annel Hinton, Gerry Jeter and colleagues, with an educational tone from [employer]. Review of Systems Const All systems reviewed & are unremarkable except as noted in HPI and below Eyes Reports no additional complaints, Denies change in vision and Denies other visual disturbances Card Denies chest pain at rest, Denies chest pain with activity, Denies edema, Denies irregular heart rhythm, Denies claudication, Denies dyspnea, Denies dyspnea on exertion, Denies orthopnea, Denies paroxysmal nocturnal dyspnea and Denies slow heart rate Resp Denies cough, Denies dyspnea and Denies dyspnea on exertion GI Denies abdominal pain, Denies change in bowel habits, Denies excessive flatus, Denies nausea and Denies vomiting Denies urinary incontinence, Denies urinary hesitancy and Denies urinary urgency Musc Denies abnormal gait, Denies atrophy, Denies deformity and Denies limited range of motion Skin/Breast Denies bleeding lesions, Denies changing lesions and Denies rash Neuro Denies abnormal gait and Denies lack of coordination Physical exam (Primary Care) Vital Signs: Last Vital Signs BP 152/90 H 02/28/23 16:32 BMI result Body Mass Index 30.0 Tobacco/Smoking Status: Tobacco use Status Tobacco use date assessed 07/05/22 02/28/23 16:31 Patient Tobacco Use Status Never used Tobacco 02/28/23 16:31 e-Cigarette/Vaping Use Never Used 02/28/23 16:31 Thrive Assessment: Date of Thrive Assessment Date Thrive assessed 07/05/22 02/28/23 16:31 Eyes General: appearance normal, both eyes and all related structures Eyelids: Yes eyelids normal Conjunctivae: conjunctivae normal Neck Neck: Yes normal visual inspection and Yes supple Resp Effort & Inspection: normal respiratory effort Auscultation: clear to auscultation bilaterally Cardio Jugular venous distension: no JVD Rate: regular rate Rhythm: regular rhythm Heart sounds: S1 normal heart sound present and S2 normal heart sound present Extrem Other: Sierra's positive in left lower leg General: Yes full ROM Results AMB Hemoglobin A1c AMB Hemoglobin A1c 5.7 % Last Edit by FERNANDO Reza on 02/28/23 16:4 0 Assessment and Plan Assessment & Plan (1) Diabetes mellitus: Code(s): E11.9 - Type 2 diabetes mellitus without complications Qualifiers: Diabetes mellitus type: type 2 Diabetes mellitus longterm insulin use: without longterm use Diabetes mellitus complication status: with hyperglycemia Qualified Code(s): E11.65 - Type 2 diabetes mellitus with hyperglycemia Plan: Continue Trulicity. Stop Actos and metformin. A1c goal is equal or less than 7%. (2) Essential hypertension: Code(s): I10 - Essential (primary) hypertension Plan: Continue lisinopril. Blood pressure goal is equal or less than 130/80. Recheck blood pressure with nurse navigator in 3 weeks. (3) Mixed hyperlipidemia: Code(s): E78.2 - Mixed hyperlipidemia Plan: Continue statins and fibrates. LDL goal is less than 70. (4) GERD (gastroesophageal reflux disease): Code(s): K21.9 - Gastro-esophageal reflux disease without esophagitis Qualifiers: Esophagitis presence: esophagitis presence not specified Qualified Code(s): K21.9 - Gastro-esophageal reflux disease without esophagitis Plan: Continue PPIs. Orders: Orders Lipid Panel Today E78.5 - Hyperlipidemia, unspecified Microalbumin, Random (w Creat) Today E11.9 - Type 2 diabetes mellitus without complications Vitamin D 25-OH Total Today E55.9 - Vitamin D deficiency, unspecified AMB Hemoglobin A1c Today E11.9 - Type 2 diabetes mellitus without complications Comprehensive [place]. Panel Fast Today E11.65 - Type 2 diabetes mellitus with hyperglycemia US venous duplex LE LT Today M79.605 - Pain in left leg Medications: Discontinued pioglitazone Discontinued Reason: Patient Refused 45 mg PO DAILY 90 tabs 1RF metformin Discontinued Reason: Patient Refused 1,000 mg PO BID 90 days 180 tabs 1RF nirmatrelvir-ritonavir 300 mg (150 mg x 2)-100 mg (Paxlovid) Discontinued Reason: Patient Completed Course 3 ea PO PER PKG DIR 5 days 30 ea 0RF Coding Level of Care Code Est Pt Level 4 (94377) Diagnoses Type 2 diabetes mellitus with hyperglycemia, without long-term current use of i nsulin E11.65 Diabetes mellitus type: type 2 Diabetes mellitus terminal press operator insulin use: without terminal press operator use Diabetes mellitus complication status: with hyperglycemia Essential hypertension I10 Mixed hyperlipidemia E78.2 Gastroesophageal reflux disease, unspecified whether esophagitis present K21.9 Esophagitis presence: esophagitis presence not specified Time Spent (min) 23
[2023-02-28 16:32] VITALS: BP 152/90
[2023-02-28 16:53] VITALS: BP 150/90
== END 2023-02-28 16:49 | disposition home or self-care (01) ==
PROVIDERS: PCP Internal Medicine; Visit Provider Internal Medicine
DX: E11.65 Type 2 diabetes mellitus with hyperglycemia (principal); I10 Essential (primary) hypertension; E78.2 Mixed hyperlipidemia; K21.9 Gastro-esophageal reflux disease without esophagitis; E11.9 Type 2 diabetes mellitus without complications
CPT/HCPCS: 83036; 99214

== ENCOUNTER 2023-03-01 08:07 | Outpatient (REF) | payer OTHER, SELFPAY ==
--- NOTE | ~2023-03-01 | US_ITS ---
EXAMINATION: US VENOUS ULTRASOUND WITH DOPPLER LOWER EXTREMITY, LEFT CLINICAL INFORMATION: Pain in the leg. Swelling COMPARISON: None available. TECHNIQUE: Ultrasound of the left lower extremity deep veins is performed from the hip to the calf with compression sonography and color and pulse Doppler assessment. Spectral analysis with color-flow imaging is performed. FINDINGS: There is normal venous compression and respiratory variation and augmented flow. The visualized common femoral vein, superficial femoral vein, profunda femoral vein, popliteal vein, and the trifurcation region shows no evidence of deep venous thrombosis. There is no significant popliteal fossa cyst. There is a right inguinal lymph node observed at 20 x 8 x 12 mm. If the patient's symptoms persist, followup ultrasound in 5 days 7 days might be of value to exclude proximal propagation from a non-visualized calf vein. US/US venous duplex LE LT IMPRESSION: No DVT demonstrated in the left lower extremity.
== END 2023-03-01 08:08 | disposition home or self-care (01) ==
LOC: HO.US 08:07
PROVIDERS: PCP Internal Medicine; Visit Provider Internal Medicine
DX: M79.605 Pain in left leg (principal)
CPT/HCPCS: 93971

== ENCOUNTER 2023-03-22 14:22 | Outpatient (REF) | payer OTHER, SELFPAY ==
[2023-03-22 15:33] LABS: Influenza A PCR POSITIVE (Negative); Influenza B PCR NEGATIVE (Negative); Resp Syncy Virus RNA Qual PCR NEGATIVE (Negative); SARS COV2 PCR INHOUSE NEGATIVE (Negative)
== END 2023-03-22 14:23 | disposition home or self-care (01) ==
LOC: HO.LAB 14:22
PROVIDERS: PCP Internal Medicine; Visit Provider Internal Medicine
DX: R09.89 Other specified symptoms and signs involving the circulatory and respiratory systems (principal); Z11.52 Encounter for screening for COVID-19
CPT/HCPCS: 0241U

== ENCOUNTER 2023-05-16 07:39 | Outpatient (REF) | payer OTHER, SELFPAY ==
[2023-05-16 09:01] LABS: Alanine Aminotransferase 23 U/L (0-31); Albumin Level 4.7 g/dL (3.5-5.0); Alkaline Phosphatase 107 U/L (39-117); Anion Gap 13 (12-20); Aspartate Amino Transferase 20 U/L (5-31); Bilirubin Total 0.5 mg/dL (0.0-1.0); Blood Urea Nitrogen 22 mg/dL (9-16); Calcium 10.2 mg/dL (8.4-10.2); Carbon Dioxide 28 mmol/L (22-29); Chloride 104 mmol/L (96-108); Cholesterol 169 mg/dL (<200); Estimated Glomerular Filt Rate > 60; Glucose Fasting 144 mg/dL (60-99); HDL Cholesterol 54 mg/dL (>40); LDL Cholesterol Calculated 88 mg/dL (<100); Potassium 4.1 mmol/L (3.3-5.1); Sodium 141 mmol/L (135-145); Total Protein 8.5 g/dL (6.5-8.0); Triglycerides 135 mg/dL (<150)
[2023-05-16 09:17] LABS: Vitamin D 25-OH Total 29.2 ng/mL (>30)
[2023-05-16 09:44] LABS: Appearance Urine Clear; Color Urine Yellow; Glucose Urine UA >=1000 mg/dL (Negative); Leukocyte Esterase Urine Negative (Negative); Nitrite Urine Negative (Negative); UMIC TRIGGER UACC YES; Urine Blood Negative (Negative); Urine Ketones Negative (Negative); Urine Protein Negative (Neg-Trace)
[2023-05-16 09:57] LABS: Bacteria Urine None Seen (None Seen); Hyaline Casts Urine 0-2 /LPF (0-2); RBC Urine 0-2 /HPF (0-2); Squamous Epithelial Cell Urine 0-2 /HPF (0-2); WBC Urine 0-5 /HPF (0-5)
[2023-05-16 10:28] LABS: Creatinine Urine 59.74 mg/dL; Microalbum/Creatinine Ratio Ur 26.7 ug/mg cr (<30)
== END 2023-05-16 07:40 | disposition home or self-care (01) ==
LOC: HO.LAB 07:39
PROVIDERS: PCP Internal Medicine; Visit Provider Internal Medicine
DX: E11.65 Type 2 diabetes mellitus with hyperglycemia (principal); E55.9 Vitamin D deficiency, unspecified; E78.5 Hyperlipidemia, unspecified
CPT/HCPCS: 36415; 80053; 80061; 81001; 82043; 82306; 82570

== ENCOUNTER 2023-05-29 17:10 | Outpatient (AMB) | payer OTHER, SELFPAY ==
--- NOTE | 2023-05-29 17:20 | MHC.PC.OV ---
Vital Signs 05/29/23 17:22 Height 5 ft 6 in Weight 188 lb BMI 30.3 BP 138/80 Blood Pressure Location Lt brachial Position Sitting Intake Visit Reasons: PE Intake Note: Patient here for a physical exam Registered Vascular Technologist (Rvt) Required: No Accompanied by: Self / Same As Patient Allergies No Known Allergies [No Known Allergies*] Allergy (Verified 05/29/23 17:36) Medication List - Last Reconciled 05/29/23 by Chloe Vargas MD atorvastatin 80 mg PO DAILY benzonatate 200 mg PO BID-TID PRN cholecalciferol (vitamin D3) 50 mcg PO DAILY 90 days empagliflozin (Jardiance) 10 mg PO DAILY 90 days fenofibrate nanocrystallized 145 mg PO DAILY gabapentin 600 mg PO BID PRN lisinopril 5 mg PO DAILY methocarbamol 750 mg PO BID omega-3 fatty acids-fish oil 300-1,000 mg 1 cap PO DAILY 90 days pantoprazole 40 mg PO DAILY 90 days triamcinolone acetonide 0.025% 1 appl topical DAILY Tobacco use date assessed: 05/29/23 Dental Screening Dental Screen Date: 05/29/23 Did you have a dental visit in the last 12 months?: No Did you have a dental problem in the last 6 months where you did not have access to dental care?: No Was dental information given to patient?: Patient has dentist HPI HPI Comments History of Present Illness Details This is a 52 year old female with diabetes mellitus type 2 that comes for her physical exam. A1c close to goal. I will add Ozempic. Last mammogram in November 2022 was normal. No need for Pap smears due to hysterectomy. Last colonoscopy was 2021 showing tubular adenomas. LDL not on goal and I advised to continue statins and fibrates. No chest pain or shortness of breath. [facility] Medical History UTI (urinary tract infection) Chronic fatigue Left fibular fracture Membranous glomerulonephritis Neuropathy IBS (irritable bowel syndrome) Right hand pain Hypovitaminosis D Diabetes mellitus Mixed hyperlipidemia Essential hypertension GERD (gastroesophageal reflux disease) Surgical History History of back surgery Hx of hysterectomy History of esophagogastroduodenoscopy (EGD) Hx of colonoscopy History of hysteroscopy Family History Father No problems noted. 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 to a significant other at home: Yes (daughter, family will help post-op) Do you presently have visiting nurse or other home services: No Alcohol intake: current Alcohol intake frequency: does not drink Alcohol type: wine and hard liquor Patient Tobacco Use Status: Never used Tobacco e-Cigarette/Vaping Use: Never Used Second Hand Smoke Exposure: No Advance Directives Date on File: 12/10/19 service: No Current occupational status: employed Current occupational exposures/hazards: No Cognitive needs: No Hearing needs: No Vision needs: No Questionnaire PHQ-9 Over the last 2 weeks, how often have you been bothered by any of the following problems? 1. Little interest or pleasure in doing things: not at all 2. Feeling down, depressed, or hopeless: not at all 3. Trouble falling or staying asleep, or sleeping too much: not at all 4. Feeling tired or having little energy: not at all 5. Poor appetite or overeating: not at all 6. Feeling bad about yourself - or that you are a failure or have let yourself or your family down: not at all 7. Trouble concentrating on things, such as reading the newspaper or watching television: not at all 8. Moving or speaking so slowly that other people could have noticed. Or the opposite - being so fidgety or restless that you have been moving around a lot more than usual: not at all 9. Thoughts that you would be better off or of hurting yourself in some way: not at all Total score: 0 Depression Screening Interpretation: Negative Depression Screening Done: Yes 84728 - PHQ-9 Billing: Yes Source: Developed by Drs. Philip Crouch, Annel Hinton, Gerry Jeter and colleagues, with an educational tone from [employer]. Thrive Questionnaire Date Thrive assessed: 05/29/23 I am a: Patient What is your living situation today?: I have a steady place to live Within the past 12 months, did the food you bought not last and you didn't have the money to get more?: Never true Within the past 12 months, did you worry whether your food would run out before you got money to buy more?: Never true Do you have trouble paying for medicines?: No Do you have trouble getting transportation to medical appointments?: No Do you have trouble paying your heating and electricity bill?: No Do you have trouble taking care of your child, family member or friend?: No Do you have trouble with day-to-day activities such as bathing, preparing meals, shopping, managing finances, etc.?: No Are you currently unemployed and looking for a job?: No Are you interested in more education?: No Please select the resources that you would like help with: None Currently or been in a relationship where the following occur: no concerns reported THRIVE Score: 0 AUDIT C Alcohol Use Questionnaire (AUDIT-C) 1. How often do you have a drink containing alcohol?: Monthly or less 2. How many drinks containing alcohol do you have on a typical day when you are drinking?: 1 or 2 3. How often do you have six or more drinks on one occasion?: Never Total Score: 1 Score Reviewed/Action Taken: No LANCE-7 AMB Questionnaire LANCE-7 Date LANCE - 7 assessed: 05/29/23 Feeling nervous, anxious, or on edge: 0 = Not at all Not being able to stop or control worryin = Not at all Worrying too much about different things: 0 = Not at all Trouble relaxin = Not at all Being so restless that it is hard to sit still: 0 = Not at all Becoming easily annoyed or irritable: 0 = Not at all Feeling afraid as if something awful might happen: 0 = Not at all Total LANCE-7 score (0-4 normal; 5-9 mild; 10-14 moderate; 15-21 severe): 0 Source: Developed by Drs. Philip Crouch, Annel Hinton, Gerry Jeter and colleagues, with an educational tone from [employer]. LANCE-7 Assessment Billing LANCE-7 Assessment Tool: LANCE-7 Assessment 75515 Review of Systems Const All systems reviewed & are unremarkable except as noted in HPI and below Eyes Reports no additional complaints, Denies change in vision and Denies other visual disturbances Card Denies chest pain at rest, Denies chest pain with activity, Denies edema, Denies irregular heart rhythm, Denies claudication, Denies dyspnea, Denies dyspnea on exertion, Denies orthopnea, Denies paroxysmal nocturnal dyspnea and Denies slow heart rate Resp Denies cough, Denies dyspnea and Denies dyspnea on exertion GI Denies abdominal pain, Denies change in bowel habits, Denies excessive flatus, Denies nausea and Denies vomiting Denies urinary incontinence, Denies urinary hesitancy and Denies urinary urgency Musc Denies abnormal gait, Denies atrophy, Denies deformity and Denies limited range of motion Skin/Breast Denies bleeding lesions, Denies changing lesions and Denies rash Neuro Denies abnormal gait and Denies lack of coordination Physical exam (Primary Care) Vital Signs: Last Vital Signs BP 138/80 05/29/23 17:22 BMI result Body Mass Index 30.3 Tobacco/Smoking Status: Tobacco use Status Tobacco use date assessed 05/29/23 05/29/23 17:27 Patient Tobacco Use Status Never used Tobacco 05/29/23 17:47 e-Cigarette/Vaping Use Never Used 05/29/23 17:47 PHQ-9: PHQ-9 Score PHQ-9: Total score 0 05/29/23 17:47 Depression Screening Interpretation: Negative Thrive Assessment: Date of Thrive Assessment Date Thrive assessed 05/29/23 05/29/23 17:27 Currently or been in a relationship where the following occur: no concerns reported Const Orientation/consciousness: patient oriented x3 [facility] Head: Yes normal to inspection, Yes normocephalic and Yes atraumatic Ears: external ears normal Eyes General: appearance normal, both eyes and all related structures Eyelids: Yes eyelids normal Conjunctivae: conjunctivae normal Neck Neck: Yes normal visual inspection and Yes supple Resp Effort & Inspection: normal respiratory effort Auscultation: clear to auscultation bilaterally Cardio Jugular venous distension: no JVD Rate: regular rate Rhythm: regular rhythm Heart sounds: S1 normal heart sound present and S2 normal heart sound present GI Inspection: Yes normal to inspection Palpation (GI): Soft to palpation and nontender Auscultation: normal bowel sounds Skin General skin exam: no rashes or lesions noted Neuro General: patient oriented x3 and no focal motor deficits Extrem General: Yes full ROM Psych Appearance: grossly normal Results AMB Hemoglobin A1c AMB Hemoglobin A1c 7.1 % Last Edit by FERNANDO Reza on 05/29/23 17:57 Assessment and Plan Assessment & Plan (1) Physical exam: Code(s): Z00.00 - Encounter for general adult medical examination without abnormal findings Plan: Repeat in a year. (2) Diabetes mellitus: Code(s): E11.9 - Type 2 diabetes mellitus without complications Qualifiers: Diabetes mellitus type: type 2 Diabetes mellitus correction insulin use: without correction use Diabetes mellitus complication status: with hyperglycemia Qualified Code(s): E11.65 - Type 2 diabetes mellitus with hyperglycemia Plan: Continue Jardiance. Start Ozempic. A1c goal is equal or less than 7 %. Orders: Orders AMB Hemoglobin A1c Today E11.9 - Type 2 diabetes mellitus without complications Medications: New semaglutide for 4 weeks 0.25 mg (0.368 mL) subcut QWEEK 30 days 1.84 mL 0RF E11.9 - Type 2 diabetes mellitus without complications Refilled cholecalciferol (vitamin D3) 50 mcg PO DAILY 90 days 90 tabs 3RF Coding Level of Care Code Est Pt Prev Care 40-64y(57542) Diagnoses Physical exam Z00.00 Type 2 diabetes mellitus with hyperglycemia, without long-term current use of insulin E11.65 Diabetes mellitus type: type 2 Diabetes mellitus director of maintenance insulin use: without director of maintenance use Diabetes mellitus complication status: with hyperglycemia Additional Codes LANCE-7 Assessment Billing - LANCE-7 Assessment Tool: LANCE-7 Assessment [id number] ([id number]) Time Spent (min) 32
[2023-05-29 17:22] VITALS: BP 138/80; BMI 30.3
== END 2023-05-29 17:49 | disposition home or self-care (01) ==
PROVIDERS: PCP Internal Medicine; Visit Provider Internal Medicine
DX: Z00.00 Encounter for general adult medical examination without abnormal findings (principal); E11.65 Type 2 diabetes mellitus with hyperglycemia
CPT/HCPCS: 83036; 99396

== ENCOUNTER 2023-10-03 14:01 | Outpatient (AMB) | payer OTHER, SELFPAY ==
--- NOTE | 2023-10-03 14:07 | MHC.PC.OV ---
Vital Signs 10/03/23 14:08 Height 5 ft 6 in Weight 174 lb BMI 28.1 BP 120/82 Blood Pressure Location Lt brachial Position Sitting Intake Visit Reasons: dm 4 month Intake Note: Patient here for a 4 month follow up DM Back Joiner Required: No Accompanied by: Self / Same As Patient Allergies No Known Allergies [No Known Allergies*] Allergy (Verified 10/03/23 14:25) Medication List - Last Reconciled 10/03/23 by Chloe Vargas MD atorvastatin 80 mg PO DAILY cholecalciferol (vitamin D3) 50 mcg PO DAILY 90 days empagliflozin (Jardiance) 10 mg PO DAILY 90 days fenofibrate nanocrystallized 145 mg PO DAILY gabapentin 600 mg (2 x 300 mg) PO BID 30 days lisinopril 5 mg PO DAILY pantoprazole 40 mg PO DAILY 90 days semaglutide (Ozempic) 2 mg (0.75 mL) subcut QWEEK 4 weeks triamcinolone acetonide 0.025% 1 appl topical DAILY Tobacco use date assessed: 05/29/23 Dental Screening Dental Screen Date: 05/29/23 HPI HPI Comments History of Present Illness Details This is a 53-year-old female with diabetes mellitus type 2, hypertension and mixed hyperlipidemia that complains of right hip pain that has been present for the past few months more prominent when walking. A1c within goal. Blood pressure stable. Lipid panel will be order and her LDL goal should be less than 70. X-ray of the hip will be ordered. Denies any chest pain or shortness on breath. [facility] Medical History (Updated 10/03/23 @ 14:33 by Chloe Vargas MD) UTI (urinary tract infection) Chronic fatigue Left fibular fracture Membranous glomerulonephritis Neuropathy IBS (irritable bowel syndrome) Right hand pain Hypovitaminosis D Diabetes mellitus Mixed hyperlipidemia Essential hypertension GERD (gastroesophageal reflux disease) Surgical History History of back surgery Hx of hysterectomy History of esophagogastroduodenoscopy (EGD) Hx of colonoscopy History of hysteroscopy Family History Father No problems noted. Mother Hypertension Maternal Grandmother Breast cancer Maternal Aunt Breast cancer Maternal Aunt Uterine cancer Maternal Uncle Diabetes Family/Other Breast cancer Social History (Updated 10/03/23 @ 14:30 by Chloe Vargas MD) Housing: Apartment Are you a primary team primary care physician to a significant other at home: Yes (daughter, family will help post-op) Do you presently have visiting nurse or other home services: No Alcohol intake: current Alcohol intake frequency: holidays/special occasions only Alcohol type: wine and hard liquor Patient Tobacco Use Status: Never used Tobacco e-Cigarette/Vaping Use: Never Used Second Hand Smoke Exposure: No Advance Directives Date on File: 12/10/19 service: No Current occupational status: employed Current occupational exposures/hazards: No Cognitive needs: No Hearing needs: No Vision needs: No Questionnaire Thrive Questionnaire Date Thrive assessed: 05/29/23 LANCE-7 AMB Questionnaire LANCE-7 Date LANCE - 7 assessed: 05/29/23 Source: Developed by Drs. Philip Crouch, Annel Hinton, Gerry Jeter and colleagues, with an educational tone from [employer]. Review of Systems Const All systems reviewed & are unremarkable except as noted in HPI and below Card Denies chest pain at rest, Denies chest pain with activity, Denies edema, Denies irregular heart rhythm, Denies claudication, Denies dyspnea, Denies dyspnea on exertion, Denies orthopnea, Denies paroxysmal nocturnal dyspnea and Denies slow heart rate Resp Denies cough, Denies dyspnea and Denies dyspnea on exertion GI Denies abdominal pain, Denies change in bowel habits, Denies excessive flatus, Denies nausea and Denies vomiting Denies urinary incontinence, Denies urinary hesitancy and Denies urinary urgency Musc Denies abnormal gait, Denies atrophy, Denies deformity and Denies limited range of motion Skin/Breast Denies bleeding lesions, Denies changing lesions and Denies rash Neuro Denies abnormal gait, Denies behavioral changes and Denies lack of coordination Psych Denies behavioral changes Physical exam (Primary Care) Vital Signs: Last Vital Signs BP 120/82 10/03/23 14:08 BMI result Body Mass Index 28.1 Tobacco/Smoking Status: Tobacco use Status Tobacco use date assessed 05/29/23 10/03/23 14:07 Patient Tobacco Use Status Never used Tobacco 10/03/23 14:30 e-Cigarette/Vaping Use Never Used 10/03/23 14:30 Thrive Assessment: Date of Thrive Assessment Date Thrive assessed 05/29/23 10/03/23 14:07 Resp Effort & Inspection: normal respiratory effort Auscultation: clear to auscultation bilaterally Cardio Jugular venous distension: no JVD Rate: regular rate Rhythm: regular rhythm Heart sounds: S1 normal heart sound present and S2 normal heart sound present Extrem General: Yes full ROM Results AMB Hemoglobin A1c AMB Hemoglobin A1c 5.8 % Last Edit by FERNANDO Reza on 10/03/23 14:25 Results Reviewed Results Reviewed: Laboratory Last Values Hgb A1c (Clinic) 5.8 % (4.0-6.0) 10/03/23 14:07 Assessment and Plan Assessment & Plan (1) Right hip pain: Code(s): M25.551 - Pain in right hip Plan: X-ray ordered. (2) Diabetes mellitus: Code(s): E11.9 - Type 2 diabetes mellitus without complications Qualifiers: Diabetes mellitus type: type 2 Diabetes mellitus long-term insulin use: without long-term use Diabetes mellitus complication status: with hyperglycemia Qualified Code(s): E11.65 - Type 2 diabetes mellitus with hyperglycemia Plan: Continue Ozempic and Jardiance. A1c goal is equal or less than 7%. (3) Essential hypertension: Code(s): I10 - Essential (primary) hypertension Plan: Continue lisinopril. Blood pressure goal is equal or less than 130/80. (4) Mixed hyperlipidemia: Code(s): E78.2 - Mixed hyperlipidemia Plan: Continue statins and fibrates. LDL goal is less than 70. Orders: Orders XR hip RT min 2V Today M25.551 - Pain in right hip Microalbumin, Random (w Creat) 4 Months E11.9 - Type 2 diabetes mellitus without complications Comprehensive [place]. Panel Fast 4 Months E11.65 - Type 2 diabetes mellitus with hyperglycemia AMB Hemoglobin A1c Today E11.65 - Type 2 diabetes mellitus with hyperglycemia Lipid Panel 4 Months E78.5 - Hyperlipidemia, unspecified Vitamin D 25-OH Total 4 Months E55.9 - Vitamin D deficiency, unspecified Coding Level of Care Code Est Pt Level 4 (05638) Complex EM visit Add On G2211 Diagnoses Right hip pain M25.551 Type 2 diabetes mellitus with hyperglycemia, without long-term current use of insulin E11.65 Diabetes mellitus type: type 2 Diabetes mellitus intermodal customer service insulin use: without intermodal customer service use Diabetes mellitus complication status: with hyperglycemia Essential hypertension I10 Mixed hyperlipidemia E78.2 Time Spent (min) 23
[2023-10-03 14:08] VITALS: BP 120/82; BMI 28.1
== END 2023-10-03 14:36 | disposition home or self-care (01) ==
PROVIDERS: PCP Internal Medicine; Visit Provider Internal Medicine
DX: M25.551 Pain in right hip (principal); E11.65 Type 2 diabetes mellitus with hyperglycemia; I10 Essential (primary) hypertension; E78.2 Mixed hyperlipidemia
CPT/HCPCS: 83036; 99214; G2211

== ENCOUNTER 2023-10-30 08:11 | Outpatient (REF) | payer OTHER, SELFPAY ==
--- NOTE | ~2023-10-30 | XR_ITS ---
EXAMINATION: XR HIP, RIGHT CLINICAL INFORMATION: Right hip pain. COMPARISON: Pelvic radiograph dated 06/27/2022. TECHNIQUE: Two views of the right hip. FINDINGS: No acute fracture or dislocation. No significant joint space narrowing. Tiny lateral acetabular marginal osteophytes. No osseous erosion. No evidence of femoral head avascular necrosis. No abnormal soft tissue calcification. XR/XR hip RT min 2V IMPRESSION: Minimal right hip arthrosis. Electronically signed by: Glenn Sauceda MD 11/03/2023 08:38 AM EDT
== END 2023-10-30 08:12 | disposition home or self-care (01) ==
LOC: HO.XRAY 08:11
PROVIDERS: PCP Internal Medicine; Visit Provider Internal Medicine
DX: M25.551 Pain in right hip (principal)
CPT/HCPCS: 73502

== ENCOUNTER 2023-11-20 08:24 | Outpatient (AMB) | payer OTHER, SELFPAY ==
--- NOTE | 2023-11-20 08:34 | MHC.OFFVIS ---
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 Fajardo 11/24/22, diabetes (A1C=5.8), h/o upper and lower end of right fibula 2020, peripheral neuropathy, chronic fatigue, presents today for initial evaluation right hip pain. Denies any recent trauma, injury or falls. Recent right hip xray showed mild arthritis. 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 Reports increasing right pain with weight bearing, changing positions from sitting to standing, prolonged walking or sitting or sleeping on her right side. She also reports chronic left leg pain associated with burning, tingling, and numbness. Patient reports back surgery significantly relieved low back and left leg pain but residual neuropathy has been bothersome. Patient takes gabapentin prescribed by PCP with partial benefit. She avoids NSAIDs unless she has severe headache. To this point, she has not tried dedicated physical therapy, chiropractic therapy, cortisone injections or massage therapy. Denies any fever, chills, abdominal or groin pain, weakness, foot drop, bladder or bowel dysfunction or saddle anesthesia. Location: Right hip, chronic left leg pain-neuropathy Duration: 1 month + Characteristics of symptom or complaint: Aching, stabbing, shooting, LLE-numbness and tingling Aggravating or associated factors: Movement, walking, weight bearing, cleaning, right side sleeping, ROM Relieving factors: Rest, sitting, gabapentin, heat therapy Treatment: None PFSH Medical History UTI (urinary tract infection) Chronic fatigue Left fibular fracture Membranous glomerulonephritis Neuropathy IBS (irritable bowel syndrome) Right hand pain Hypovitaminosis D Diabetes mellitus Mixed hyperlipidemia Essential hypertension GERD (gastroesophageal reflux disease) Surgical History History of back surgery Hx of hysterectomy History of esophagogastroduodenoscopy (EGD) Hx of colonoscopy History of hysteroscopy Family History Father No problems noted. Mother Hypertension Maternal Grandmother Breast cancer Maternal Aunt Breast cancer Maternal Aunt Uterine cancer Maternal Uncle Diabetes Family/Other Breast cancer Social History Housing: Apartment Are you a primary health care / medical job titles to a significant other at home: Yes (daughter, family will help post-op) Do you presently have visiting nurse or other home services: No Alcohol intake: current Alcohol intake frequency: holidays/special occasions only Alcohol type: wine and hard liquor Patient Tobacco Use Status: Never used Tobacco e-Cigarette/Vaping Use: Never Used Second Hand Smoke Exposure: No Advance Directives Date on File: 12/10/19 service: No Current occupational status: employed Current occupational exposures/hazards: No Cognitive needs: No Hearing needs: No Vision needs: No Review of Systems Const All systems reviewed & are unremarkable except as noted in HPI and below Physical Exam Vital Signs: Last Vital Signs Pulse 80 11/20/23 08:38 BP 149/87 H 11/20/23 08:38 Pulse Ox 99 11/20/23 08:38 Oxygen Delivery Method Room Air 11/20/23 08:38 BMI result Body Mass Index 27.2 General: Appears afebrile. Alert and oriented. Mood and affect appropriate. Follows and participates in conversation appropriately. Respiratory effort is unlabored. No cough. Able to transition from sit to stand unassisted. Ambulates with bilaterally normal heel strike and toe off. General: Yes no CVA tenderness Back/Spine/Pelvis Other: Patient is able to walk and stand on heels and tip toes with mild difficulty on the left demonstrating good motor tone. Normal gait, no limping. Can flex forward to 70-75 degrees and extend to 5-10 degrees before experiencing lumbar pain. Demonstrates 5/5 right and 4/5 left strength of quadriceps bilaterally as well as flexion/dorsiflexion of bilateral feet against resistance. 2+ pedal pulses bilaterally. Seated straight leg rise with dorsiflexion negative bilaterally. +2 right +1 left patellar and +1 achilles reflexes bilaterally. Facet loading test positive bilaterally. Lina sign, Marky?s, Pelvic compression and Stinchfield tests are negative bilaterally. Mild groin pain with I/E hip rotations on the right. Mild TTP to right GTB. Valsalva maneuver negative. Back: no CVA tenderness Cervical Spine: cervical ROM normal, cervical muscular tenderness and No Cervical spine tenderness Thoracic/Lumbar Spine: thoracic and lumbar spine normal to inspection, Thoracic/lumbar spine scar(s), Lasegue's sign negative, straight leg raise negative bilaterally, pain with thoraco-lumbar ROM, paraspinal muscle tenderness, thoraco-lumbar ROM limited, No thoracic spinal tenderness and lumbar spinal tenderness at L4 and at L5 Pelvis: no buttock tenderness Sacroiliac joints: bilaterally nontender Extrem General: Yes capillary refill normal, Yes no clubbing, cyanosis or edema and Yes no calf tenderness Results Reviewed Results Reviewed: XR HIP, RIGHT 10/30/23 CLINICAL INFORMATION: Right hip pain. COMPARISON: Pelvic radiograph dated 06/27/2022. TECHNIQUE: Two views of the right hip. FINDINGS: No acute fracture or dislocation. No significant joint space narrowing. Tiny lateral acetabular marginal osteophytes. No osseous erosion. No evidence of femoral head avascular necrosis. No abnormal soft tissue calcification. IMPRESSION: Minimal right hip arthrosis. Assessment & Plan Assessment & Plan (1) Right hip pain: Code(s): M25.551 - Pain in right hip Category: Medical (2) Osteoarthritis of right hip: Code(s): M16.11 - Unilateral primary osteoarthritis, right hip Category: Medical (3) S/P spinal surgery: Code(s): Z98.890 - Other specified postprocedural states Category: Surgical (4) Left leg pain: Code(s): M79.605 - Pain in left leg Category: Medical (5) Peripheral neuropathy: Code(s): G62.9 - Polyneuropathy, unspecified Category: Medical (6) S/P spinal surgery: Code(s): Z98.890 - Other specified postprocedural states Category: Surgical (7) Left leg pain: Code(s): M79.605 - Pain in left leg Category: Medical Plan Discussed interventional treatments for right hip pain. Recommend formal physical therapy as initial steps. Script provided today. Neurodiagnostic studies to further evaluate chronic left lower extremity neuropathy status post back surgery in 2022. Follow-up in 6-8 weeks to see response to physical therapy, if no response to physical therapy will consider further interventional strategy. All questions and concerns have been answered and patient agreed with the treatment plan. Follow-up for EMG studies and sooner as needed. Orders: Orders NE nerve conduction velocity Today E11.65 - Type 2 diabetes mellitus with hyperglycemia, G62.9 - Polyneuropathy, unspecified, M79.605 - Pain in left leg, Z98.890 - Other specified postprocedural states NE electromyogram (EMG) Today E11.65 - Type 2 diabetes mellitus with hyperglycemia, G62.9 - Polyneuropathy, unspecified, M79.605 - Pain in left leg, Z98.890 - Other specified postprocedural states PT Evaluation and Treatment Today M16.11 - Unilateral primary osteoarthritis, right hip, M25.551 - Pain in right hip, M79.605 - Pain in left leg Coding Level of Care Code New Pt Level 4 (05479) Complex EM visit Add On G2211 Diagnoses Right hip pain M25.551 Osteoarthritis of right hip M16.11 S/P spinal surgery Z98.890 Left leg pain M79.605 Peripheral neuropathy G62.9
[2023-11-20 08:38] VITALS: BP 149/87; PULSE 80; O2SAT 99; BMI 27.2
== END 2023-11-20 09:04 | disposition home or self-care (01) ==
PROVIDERS: PCP Internal Medicine; Visit Provider Nurse Practitioner Family
DX: M25.551 Pain in right hip (principal); M16.11 Unilateral primary osteoarthritis, right hip; Z98.890 Other specified postprocedural states; M79.605 Pain in left leg; G62.9 Polyneuropathy, unspecified
CPT/HCPCS: 99204; G2211

== ENCOUNTER → 2023-11-20 08:24 | Outpatient (BNVA) | payer OTHER, SELFPAY | PROVIDERS: PCP Internal Medicine; Visit Provider Nurse Practitioner Family | DX: M16.11 Unilateral primary osteoarthritis, right hip (principal); M25.551 Pain in right hip; M79.605 Pain in left leg; G62.9 Polyneuropathy, unspecified; Z98.890 Other specified postprocedural states | CPT/HCPCS: 99202 ==

== ENCOUNTER 2023-12-15 14:15 | Outpatient (REF) | payer OTHER, SELFPAY ==
--- NOTE | 2023-12-15 14:19 | EMG_ITS ---
Chief complaint: chronic left lower extremity neuropathy, status post back surgery in 2022, left L5-S1 microdiskectomy Dr. Fajardo 11/24/22, diabetes She has had EMG in the past but can not remember if it was lower or upper extremities and I do not have the results for review. She was told to have some type of neuropathy. Reason for referral: Evaluate for radiculopathy versus neuropathy Referred by: Lexy Huang DELINQUENT TAX COLLECTOR Procedure done: Bilateral lower extremity NCS/EMG Precautions and/or limitations: Previous lumbar surgery The limb temperature was monitored continuously and remained between 32-36 degrees C during the performance of the NCS. Nerve Conduction Studies Anti Sensory Summary Table ?Stim Site NR Onset (ms) Norm Onset (ms) Peak (ms) Norm Peak (ms) O-P Amp (?V) Norm O-P Amp Site1 Site2 Delta-0 (ms) Dist (cm) Agustin (m/s) Norm Agustin (m/s) Left Sural Anti Sensory (Lat Mall) Calf ? 3.5 4.3 <4.0 11.4 >5.0 Calf Lat Mall 3.5 14.0 40 Right Sural Anti Sensory (Lat Mall) Calf ? 3.4 4.0 <4.0 5.5 >5.0 Calf Lat Mall 3.4 14.0 41 Motor Summary Table ?Stim Site NR Onset (ms) Norm Onset (ms) O-P Amp (mV) Norm O-P Amp iAmp (mV) Amp (1st) (%) Site1 Site2 Delta-0 (ms) Dist (cm) Agustin (m/s) Norm Agustin (m/s) Left Peroneal Motor (Ext Dig Brev) Ankle ? 5.6 <4.0 4.6 >2.5 5.8 100.0 Ankle Ext Dig Brev 5.6 0.0 B Fib ? 13.0 4.0 5.1 87.0 B Fib Ankle 7.4 36.0 49 >40 Poplt ? 14.1 4.0 5.2 87.0 Poplt B Fib 1.1 4.0 36 >40 Right Peroneal Motor (Ext Dig Brev) Ankle ? 4.0 <4.0 4.5 >2.5 5.9 100.0 Ankle Ext Dig Brev 4.0 0.0 B Fib ? 12.1 3.9 5.1 86.7 B Fib Ankle 8.1 35.0 43 >40 Poplt ? 13.2 3.8 5.0 84.4 Poplt B Fib 1.1 4.5 41 >40 Left Tibial Motor (Abd Mercedes Brev) Ankle ? 4.4 <5 11.9 >2.5 17.4 100.0 Ankle Abd Mercedes Brev 4.4 0.0 Knee ? 14.7 8.1 13.0 68.1 Knee Ankle 10.3 42.0 41 >40 EMG ?Side Muscle Nerve Root Ins Act Fibs Psw Amp Dur Poly Recrt Int Pat Comment Right AbdHallucis MedPlantar S1-2 Nml Nml Nml Nml Nml 0 Nml Complete Right AntTibialis Dp Br Peron L4-5 Nml Nml Nml Nml Nml 0 Nml Complete Right PostTibialis Tibial L5, S1 Nml Nml Nml Nml Nml 0 Nml Complete Right MedGastroc Tibial S1-2 Nml Nml Nml Nml Nml 0 Nml Complete Right VastusMed Femoral L2-4 Nml Nml Nml Nml Nml 0 Nml Complete Left AbdHallucis MedPlantar S1-2 Nml Nml Nml Nml Nml 0 Nml Complete Left AntTibialis Dp Br Peron L4-5 Nml Nml Nml Nml Nml 0 Nml Complete Left PostTibialis Tibial L5, S1 Nml Nml Nml Nml Nml 0 Nml Complete Left MedGastroc Tibial S1-2 Nml Nml Nml Nml Nml 0 Nml Complete Left VastusMed Femoral L2-4 Nml Nml Nml Nml Nml 0 Nml Complete FINDINGS: Left peroneal nerve showed prolonged distal latency, normal amplitude and slow conduction velocity at fibular neck. All other nerves tested were within normal. Concentric needle EMG was performed in selected muscles of the bilateral lower extremity. Study did not reveal signs of electric abnormalities as shown in the table above. IMPRESSION: 1. This is an abnormal study. 2. There is electrodiagnostic evidence for left peroneal neuropathy at the fibular neck. 3. There is no electrodiagnostic evidence for tibial neuropathy. lumbosacral plexopathy, lumbar radiculopathy, or peripheral neuropathy. 3. No electrodiagnostic evidence for right peroneal neuropathy. Thank you for your kind referral. Brenda Pantoja MD, GABRIEL Board Certified, [place] [employer] and [employer] (ABPMR) Board Certified, [place] [employer] Electrodiagnostic Medicine (ABEM) CODIN 53517 x 2 MTDD
== END 2023-12-15 14:16 | disposition home or self-care (01) ==
LOC: HO.NEURO 14:15
PROVIDERS: PCP Internal Medicine; Visit Provider Nurse Practitioner Family
DX: M79.605 Pain in left leg (principal); G62.9 Polyneuropathy, unspecified; E11.65 Type 2 diabetes mellitus with hyperglycemia; Z98.890 Other specified postprocedural states
CPT/HCPCS: 95886; 95909

== ENCOUNTER → 2023-12-15 14:19 | Outpatient (BNV) | payer OTHER, SELFPAY | PROVIDERS: PCP Internal Medicine; Visit Provider Physical Medicine & Rehabilitation | DX: G62.89 Other specified polyneuropathies (principal); M79.605 Pain in left leg; R20.0 Anesthesia of skin; R20.2 Paresthesia of skin | CPT/HCPCS: 95886; 95909 ==

== ENCOUNTER 2024-01-19 15:29 | Outpatient (AMB) | payer OTHER, SELFPAY ==
--- NOTE | 2024-01-19 15:35 | A.OFFVIS_ITS ---
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 Patient continues to endorse right hip pain with radiation into her groin and thigh and into her knee. She is currently active with PT and home exercise program and finds partial improvement. Patient has no groin pain with hip testing today but positive SLR testing on the right with increase in her thi gh and groin pain as well as sacroiliac joint pain. Hip xray showed mild arthritis. We will proceed with lumbar spine MRI and continue PT. Patient continues to take gabapentin with partial benefit. Denies any recent cough, cold, infection, fever or other significant changes in medical history since last office visit. PRIOR: Patient is a pleasant 53 years old female with history of chronic low back pain, left L5-S1 microdiskectomy Dr. Fajardo 11/24/22, diabetes (A1C=5.8), h/o upper and lower end of right fibula 2020, peripheral neuropathy, chronic fatigue, presents today for initial evaluation right hip pain. Denies any recent trauma, injury or falls. Recent right hip xray showed mild arthritis. 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 Reports increasing right pain with weight bearing, changing positions from sitting to standing, prolonged walking or sitting or sleeping on her right side. She also reports chronic left leg pain associated with burning, tingling, and numbness. Patient reports back surgery significantly relieved low back and left leg pain but residual neuropathy has been bothersome. Patient takes gabapentin prescribed by PCP with partial benefit. She avoids NSA IDs unless she has severe headache. To this point, she has not tried dedicated physical therapy, chiropractic therapy, cortisone injections or massage therapy. Denies any fever, chills, abdominal or groin pain, weakness, foot drop, bladder or bowel dysfunction or saddle anesthesia. Location: Right hip, chronic left leg pain-neuropathy Duration: 1 month + Characteristics of symptom or complaint: Aching, stabbing, shooting, LLE- numbness and tingling Aggravating or associated factors: Movement, walking, weight bearing, cleaning, right side sleeping, ROM Relieving factors: Rest, sitting, gabapentin, heat therapy Treatment: None PFS Medical History (Updated 01/19/24 @ 15:51 by OLEG Mandel) UTI (urinary tract infection) Chronic fatigue Left fibular fracture Membranous glomerulonephritis Neuropathy IBS (irritable bowel syndrome) Right hand pain Hypovitaminosis D Diabetes mellitus Mixed hyperlipidemia Essential hypertension GERD (gastroesophageal reflux disease) Surgical History (Updated 01/19/24 @ 15:51 by OLEG Mandel) History of back surgery Hx of hysterectomy History of esophagogastroduodenoscopy (EGD) Hx of colonoscopy History of hysteroscopy Family History Father No problems noted. Mother Hypertension Maternal Grandmother Breast cancer Maternal Aunt Breast cancer Maternal Aunt Uterine cancer Maternal Uncle Diabetes Family/Other Breast cancer Social History Housing: Apartment Are you a primary urgent care physician to a significant other at home: Yes (daughter, family will help post-op) Do you presently have visiting nurse or other home services: No Alcohol intake: current Alcohol intake frequency: holidays/special occasions only Alcohol type: wine and hard liquor Patient Tobacco Use Status: Never used Tobacco e-Cigarette/Vaping Use: Never Used Second Hand Smoke Exposure: No Advance Directives Date on File: 12/10/19 service: No Current occupational status: employed Current occupational exposures/hazards: No Cognitive needs: No Hearing needs: No Vision needs: No Review of Systems Const All systems reviewed & are unremarkable except as noted in HPI and below Physical Exam General: Appears afebrile. Alert and oriented. Mood and affect appropriate. Follows and participates in conversation appropriately. Respiratory effort is unlabored. No cough. Able to transition from sit to stand unassisted. Ambulates with bilaterally normal heel strike and toe off. General: Yes no CVA tenderness Back/Spine/Pelvis Other: Limited lumbar ROM due to pain. Normal gait, no limping. Can flex forward to 70-75 degrees and extend to 5-10 degrees before experiencing lumbar pain. Demonstrates 5/5 strength of quadriceps bilaterally as well as flexion/dorsiflexion of bilateral feet against resistance. 2+ pedal pulses bilaterally. Seated straight leg rise with dorsiflexion positive on the right. +1 patellar and +1 achilles reflexes bilaterally. Facet loading test positive bilaterally. Lina sign, Marky?s, Pelvic compression and Stinchfield tests are negative bilaterally. Mild groin pain with I/E hip rotations on the right. Mild TTP to right GTB. Valsalva maneuver negative. Back: no CVA tenderness Cervical Spine: cervical ROM normal, cervical muscular tenderness and No Cervical spine tenderness Thoracic/Lumbar Spine: thoracic and lumbar spine normal to inspection, Thoracic/lumbar spine scar(s), Lasegue's sign positive on the right and diffuse, pain with thoraco-lumbar ROM, paraspinal muscle tenderness, thoraco-lumbar ROM limited, No thoracic spinal tenderness and lumbar spinal tenderness (L4-S1) Pelvis: buttock tenderness on the right Sacroiliac joints: bilaterally nontender Extrem General: Yes capillary refill normal, Yes no clubbing, cyanosis or edema and Yes no calf tenderness Results Reviewed Results Reviewed: MR LUMBAR SPINE WITHOUT CONTRAST 08/03/22 CLINICAL INFORMATION: Lumbar radiculopathy. COMPARISON: Lumbar spine radiographs 06/21/2022. FINDINGS: Alignment is normal. Vertebral heights are preserved. There are minimal type I degenerative endplate changes at L3-L4. There is slight loss of intervertebral disc height and T2 signal intensity at L5-S1 related to disc degeneration. Disc desiccation is visualized at multiple additional levels. The tip of the conus medullaris is located at L1. No mass effect on the conus. Visualized distal cord signal intensity is normal. At L1-L2 the annular contour is normal. No canal or neuroforaminal compromise. At L2-L3 there is a bulging disc. Bilateral facet degenerative change. Mild canal stenosis. No mass effect on the traversing or foraminal nerve roots. At L3-L4 there is a bulging disc and bilateral facet degenerative change. Mild canal stenosis. No mass effect on the traversing or foraminal nerve roots. At L4-L5 there is a bulging disc. Bilateral facet degenerative change. No canal stenosis. No mass effect on the traversing or foraminal nerve roots. At L5-S1 there is a broad central protrusion superimposed upon a bulging disc. Bilateral facet degenerative change. There is subarticular zone narrowing causing compression of both traversing S1 nerve roots, greater on the left. No foraminal nerve root compression. Limited visualization of the retroperitoneal anatomy reveals no abnormal finding. Psoas and paraspinal musculature is symmetric. IMPRESSION: There is multilevel degenerative spondylosis of the lumbar spine. Mild canal stenosis at L2-L3 and L3-L4. A broad central protrusion in conjunction with facet degenerative change at L5-S1 causes compression of both traversing S1 nerve roots, greater on the left. Otherwise no substantial mass effect on the traversing or foraminal nerve roots elsewhere within the lumbar spine. XR HIP, RIGHT 10/30/23 CLINICAL INFORMATION: Right hip pain. COMPARISON: Pelvic radiograph dated 06/27/2022. FINDINGS: No acute fracture or dislocation. No significant joint space narrowing. Tiny lateral acetabular marginal osteophytes. No osseous erosion. No evidence of femoral head avascular necrosis. No abnormal soft tissue calcification. IMPRESSION: Minimal right hip arthrosis. NERVE CONDUCTION STUDY 12/15/23 FINDINGS: Left peroneal nerve showed prolonged distal latency, normal amplitude and slow conduction velocity at fibular neck. All other nerves tested were within normal. Concentric needle EMG was performed in selected muscles of the bilateral lower extremity. Study did not reveal signs of electric abnormalities as shown in the table above. IMPRESSION: 1. This is an abnormal study. 2. There is electrodiagnostic evidence for left peroneal neuropathy at the fibular neck. 3. There is no electrodiagnostic evidence for tibial neuropathy. lumbosacral plexopathy, lumbar radiculopathy, or peripheral neuropathy. 3. No electrodiagnostic evidence for right peroneal neuropathy. Assessment & Plan Assessment & Plan (1) Right hip pain: Code(s): M25.551 - Pain in right hip Category: Medical (2) Osteoarthritis of right hip: Code(s): M16.11 - Unilateral primary osteoarthritis, right hip Category: Medical (3) S/P spinal surgery: Code(s): Z98.890 - Other specified postprocedural states Category: Surgical (4) Left leg pain: Code(s): M79.605 - Pain in left leg Category: Medical (5) Peripheral neuropathy: Code(s): G62.9 - Polyneuropathy, unspecified Category: Medical (6) S/P spinal surgery: Code(s): Z98.890 - Other specified postprocedural states Category: Surgical (7) Left leg pain: Code(s): M79.605 - Pain in left leg Category: Medical (8) Lumbar degenerative disc disease: Code(s): M51.36 - Other intervertebral disc degeneration, lumbar region Category: Medical (9) History of back surgery: Comment: spinal surgery 11/24/2022 Code(s): Z98.890 - Other specified postprocedural states Category: Surgical (10) Lumbar radiculopathy: Code(s): M54.16 - Radiculopathy, lumbar region Category: Medical Plan Discussed interventional treatments for right hip and radicular back pain. Continue formal physical therapy and home exercise program. Discussed Neurodiagnostic studies results with patient today. For persistent radicular symptoms we will proceed with lumbar spine MRI to assess for neural integrity and compression and follow-up on previous lumbar spine MRI findings prior to back surgery in the fall of 2022. All questions and concerns have been answered and patient agreed with the treatment plan. Follow-up for MRI results and sooner as needed. Orders: Orders MR lumbar spine wo/w con 01/19/24 M51.36 - Other intervertebral disc degeneration, lumbar region, M54.16 - Radiculopathy, lumbar region, Z98.890 - Other specified postprocedural states Coding Level of Care Code Est Pt Level 4 (56602) Complex EM visit Add On G2211 Diagnoses Right hip pain M25.551 Osteoarthritis of right hip M16.11 S/P spinal surgery Z98.890 Left leg pain M79.605 Peripheral neuropathy G62.9 Lumbar degenerative disc disease M51.36 History of back surgery Z98.890 Lumbar radiculopathy M54.16
== END 2024-01-19 15:52 | disposition home or self-care (01) ==
PROVIDERS: PCP Internal Medicine; Visit Provider Nurse Practitioner Family
DX: M25.551 Pain in right hip (principal); M16.11 Unilateral primary osteoarthritis, right hip; Z98.890 Other specified postprocedural states; M79.605 Pain in left leg; G62.9 Polyneuropathy, unspecified; M51.369 Other intervertebral disc degeneration, lumbar region without mention of lumbar back pain or lower extremity pain; M54.16 Radiculopathy, lumbar region
CPT/HCPCS: 99214; G2211

== ENCOUNTER → 2024-01-19 15:29 | Outpatient (BNVA) | payer OTHER, SELFPAY | PROVIDERS: PCP Internal Medicine; Visit Provider Nurse Practitioner Family | DX: M25.551 Pain in right hip (principal); M16.11 Unilateral primary osteoarthritis, right hip; M79.605 Pain in left leg; G62.9 Polyneuropathy, unspecified; M51.360 Other intervertebral disc degeneration, lumbar region with discogenic back pain only; M54.16 Radiculopathy, lumbar region; Z98.890 Other specified postprocedural states | CPT/HCPCS: 99212 ==

== ENCOUNTER 2024-02-06 06:33 | Outpatient (REF) | payer OTHER, SELFPAY ==
[2024-02-06 07:39] LABS: Appearance Urine Clear; Color Urine Yellow; Glucose Urine UA >=1000 mg/dL (Negative); Leukocyte Esterase Urine Small (1+) (Negative); Nitrite Urine Negative (Negative); Specific Gravity - Urine >= 1.030 (1.005-1.025); UMIC TRIGGER UACC YES; Urine Blood Negative (Negative); Urine Ketones Negative (Negative); Urine Protein Negative (Neg-Trace)
[2024-02-06 07:45] LABS: Bacteria Urine Trace (None Seen); Hyaline Casts Urine 0-2 /LPF (0-2); RBC Urine 0-2 /HPF (0-2); UACC Culture Trigger YES
[2024-02-06 08:02] LABS: Creatinine Urine 97.18 mg/dL; Microalbum/Creatinine Ratio Ur 9.2 ug/mg cr (<30)
[2024-02-06 08:04] LABS: Alanine Aminotransferase 26 U/L (0-31); Albumin Level 4.1 g/dL (3.5-5.0); Alkaline Phosphatase 123 U/L (39-117); Anion Gap 12 (12-20); Aspartate Amino Transferase 33 U/L (5-31); Bilirubin Total 0.4 mg/dL (0.0-1.0); Blood Urea Nitrogen 20 mg/dL (9-16); Calcium 9.4 mg/dL (8.4-10.2); Carbon Dioxide 25 mmol/L (22-29); Chloride 104 mmol/L (96-108); Cholesterol 186 mg/dL (<200); Estimated Glomerular Filt Rate > 60; Glucose Fasting 130 mg/dL (60-99); HDL Cholesterol 41 mg/dL (>40); LDL Cholesterol Calculated 90 mg/dL (<100); Potassium 3.8 mmol/L (3.3-5.1); Sodium 137 mmol/L (135-145); Total Protein 7.5 g/dL (6.5-8.0); Triglycerides 277 mg/dL (<150)
[2024-02-06 08:08] LABS: Vitamin D 25-OH Total 23.7 ng/mL (>30)
== END 2024-02-06 06:34 | disposition home or self-care (01) ==
LOC: HO.LAB 06:33
PROVIDERS: PCP Internal Medicine; Visit Provider Internal Medicine
DX: E11.65 Type 2 diabetes mellitus with hyperglycemia (principal); E11.9 Type 2 diabetes mellitus without complications; E78.5 Hyperlipidemia, unspecified; E55.9 Vitamin D deficiency, unspecified
CPT/HCPCS: 36415; 80053; 80061; 81001; 82043; 82306; 82570; 87086

== ENCOUNTER 2024-02-20 06:57 | Outpatient (RCR) | payer OTHER, SELFPAY ==
--- NOTE | 2023-12-07 15:43 | MHC.PT.EP ---
[facility] [place] Office [place] Office [place] Office [address] John Kincaid [address] [phone] F: [phone] F: [phone] F: [phone] F: [phone] Physical Therapy Plan of Care Date of Evaluation: 12/07/23 Date of Surgery: Diagnosis: PAIN IN RIGHT HIP (KP) Assessment: PRASHANT IS A PLEASANT 53 YO FEMALE WHO REPORTS HISTORY OF CHRONIC LOW BACK PAIN. LAST SHE HAD L5-S1 MICRODISKECTOMY WITH THE SPINE CLINIC. HER BACK PAIN HAS IMPROVED BUT SHE STILL HAS RESIDUAL SYMPTOMS WELL RIGHT HIP PAIN AND NEUROPATHY IN BOTH HIPS. SHE HAS NOTED THAT HER RIGHT HIP PAIN HAS BEEN INCREASING OVER THE LAST FEW MONTHS. TYPICALLY SHE WALKS TO WORK (APROX 15 MINS) AND IS ABLE TO DO SO WITH INCREASED TIME ALLOTTED. SHE REPORTS INCREASED PAIN WITH PROLONGED SITTING. 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 SHE CURRENTLY IS ABLE TO PERFORM HOMEMAKING AND SELF CARE ACTIVITIES WITH INCREASED TIME TO COMPLETE. UPON EXAM SHE DEMONSTRATES DECREASED LE STRENGTH, ALTERED GAIT AND BALANCE, ALTERED SOFT TISSUE MOBILITY AND INCREASED PAIN. SHE REPORTS DECREASED ABILITY TO PERFORM LIFTING, REACHING, PUSHING AND PULLING. SHE REPORTS DECREASED TOLERANCE TO RECREATIONAL AND COMMUNITY ACTIVITIES. Frequency and Duration: The patient will be seen 2 X WEEK FOR 4 WEEKS Short Term Goals: INITIATE HEP AND PROMOTE SELF SARAH Tosser Goals: INDEPENDENT HEP TO DEMONSTRATE FULL LE STRENGTH TO PERFORM FUNCTIONAL SQUAT TO IMPROVE LEFS IMPROVEMENT OF A MINIMUM OF 9 POINTS Treatment Plan: Modalities to reduce pain, spasms and effusion. Manual therapy to restore motion and function. Therapeutic exercise to improve strength and flexibility. Neuromuscular re-education for posture and balance. Therapeutic activities to return to functional activities of daily living. Electronically signed by: TOSHIA FIGUEROA PT DPT Please sign and return to therapist. Thank you for your referral.
== END 2024-02-29 11:09 | disposition home or self-care (01) ==
LOC: HO.PT 06:57
PROVIDERS: PCP Internal Medicine; Visit Provider Nurse Practitioner Family
DX: M25.551 Pain in right hip (principal); M16.11 Unilateral primary osteoarthritis, right hip; M79.605 Pain in left leg
CPT/HCPCS: 97110; 97116; 97161; 97530; 97535

== ENCOUNTER 2024-02-20 15:57 | Outpatient (AMB) | payer OTHER, SELFPAY ==
--- NOTE | 2024-02-20 16:16 | A.OFFPC_ITS ---
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: No Accompanied by: Self / Same As Patient Allergies No Known Allergies [No Known Allergies*] Allergy (Verified 02/20/24 16:47) Medication List - Last Reconciled 02/20/24 by Chloe Vargas MD atorvastatin 80 mg PO DAILY cholecalciferol (vitamin D3) 50 mcg PO DAILY 90 days empagliflozin (Jardiance) 10 mg PO DAILY 90 days fenofibrate nanocrystallized 145 mg PO DAILY gabapentin 600 mg (2 x 300 mg) PO BID 30 days lisinopril 5 mg PO DAILY pantoprazole 40 mg PO DAILY 90 days semaglutide (Ozempic) 2 mg (0.75 mL) subcut QWEEK 4 weeks triamcinolone acetonide 0.025% 1 appl topical DAILY Tobacco use date assessed: 05/29/23 Dental Screening Dental Screen Date: 02/20/24 Did you have a dental visit in the last 12 months?: No Did you have a dental problem in the last 6 months where you did not have access to dental care?: No Was dental information given to patient?: Patient has dentist HPI HPI Comments History of Present Illness Details The patient is a 53-year-old female presenting with a scheduled follow- up for the management of Type 2 Diabetes Mellitus, Essential Hypertension, and Hyperlipidemia. She has been on atorvastatin 80 mg for cholesterol management and Jardiance 10 mg for diabetes. The patient reports not having received or taken fenofibrate, which was previously prescribed for hyperlipidemia, and this may be contributing to her elevated triglycerides. She has also been prescribed lisinopril for hypertension, and Ozempic at 2 mg for diabetes management. The patient's blood pressure has been stable according to her report. She mentions weight loss, having reduced her weight from 188 pounds to 166 pounds, but her triglycerides remain elevated. The patient has received vaccinations including flu, shingles, and pneumonia. [facility] Medical History UTI (urinary tract infection) Chronic fatigue Left fibular fracture Membranous glomerulonephritis Neuropathy IBS (irritable bowel syndrome) Right hand pain Hypovitaminosis D Diabetes mellitus Mixed hyperlipidemia Essential hypertension GERD (gastroesophageal reflux disease) Surgical History History of back surgery Hx of hysterectomy History of esophagogastroduodenoscopy (EGD) Hx of colonoscopy History of hysteroscopy Family History Father No problems noted. 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 other at home: Yes (daughter, family will help post-op) Do you presently have visiting nurse or other home services: No Alcohol intake: current Alcohol intake frequency: holidays/special occasions only Alcohol type: hard liquor and other Patient Tobacco Use Status: Never used Tobacco e-Cigarette/Vaping Use: Never Used Second Hand Smoke Exposure: No Advance Directives Date on File: 12/10/19 service: No Current occupational status: employed Current occupational exposures/hazards: No Cognitive needs: No Hearing needs: No Vision needs: No Questionnaire Thrive Questionnaire Date Thrive assessed: 05/29/23 LANCE-7 AMB Questionnaire LANEC-7 Date LANCE - 7 assessed: 05/29/23 Source: Developed by Drs. Philip Crouch, Annel Hinton, Gerry Jeter and colleagues, with an educational tone from [employer]. Review of Systems Const Details: - General: Reports significant weight loss. - Cardiovascular: Denies any recent issues with blood pressure management. - Endocrine: Denies new symptoms associated with diabetes management. Physical exam (Primary Care) Vital Signs: Last Vital Signs BP 124/72 02/20/24 16:17 BMI result Body Mass Index 27.6 Tobacco/Smoking Status: Tobacco use Status Tobacco use date assessed 05/29/23 02/20/24 16:17 Patient Tobacco Use Status Never used Tobacco 02/20/24 16:51 e-Cigarette/Vaping Use Never Used 02/20/24 16:51 Thrive Assessment: Date of Thrive Assessment Date Thrive assessed 03/25/24 12/17/24 16:17 Const Other: General: No confusion Respiratory: Normal respiratory effort, clear to auscultation bilaterally Cardiovascular: No jugular venous distension, regular rate, regular rhythm, S1 normal heart sound present and S2 normal heart sound present Extremities: Full ROM Psychology: Grossly normal Results AMB Hemoglobin A1c AMB Hemoglobin A1c 5.5 % Last Edit by FERNANDO Reza on 02/20/24 16:2 4 Results Reviewed Results Reviewed: Laboratory Last Values Hgb A1c (Clinic) 5.5 % (4.0-6.0) 02/20/24 16:13 Coding Level of Care Code Est Pt Level 4 (23966) Complex EM visit Add On G2211 Diagnoses Type 2 diabetes mellitus with hyperglycemia, without long-term current use of insulin E11.65 Diabetes mellitus type: type 2 Diabetes mellitus [facility] insulin use: without [facility] use Diabetes mellitus complication status: with hyperglycemia Essential hypertension I10 Mixed hyperlipidemia E78.2 Gastroesophageal reflux disease, unspecified whether esophagitis present K21.9 Esophagitis presence: esophagitis presence not specified Time Spent (min) 23 Assessment & Plan Assessment & Plan (1) Diabetes mellitus: Code(s): E11.9 - Type 2 diabetes mellitus without complications Category: Medical Qualifiers: Diabetes mellitus type: type 2 Diabetes mellitus terminal operator insulin use: without [facility] use Diabetes mellitus complication status: with hyperglycemia Qualified Code(s): E11.65 - Type 2 diabetes mellitus with hyperglycemia (2) Essential hypertension: Code(s): I10 - Essential (primary) hypertension Category: Medical (3) Mixed hyperlipidemia: Code(s): E78.2 - Mixed hyperlipidemia Category: Medical (4) GERD (gastroesophageal reflux disease): Code(s): K21.9 - Gastro-esophageal reflux disease without esophagitis Category: Medical Qualifiers: Esophagitis presence: esophagitis presence not specified Qualified Code(s): K21.9 - Gastro-esophageal reflux disease without esophagitis Plan - Reinforcement of current statin therapy with atorvastatin 80 mg for hyperlipidemia. - Encourage adherence to fenofibrate regimen to address elevated triglycerides. - Continue Jardiance 10 mg for diabetes control and review blood glucose log at next visit. - Continue lisinopril for hypertension management. - Encourage ongoing lifestyle modifications, including dietary adjustments and weight management. - Schedule routine blood work to monitor lipid levels and diabetes markers. Patient was informed and verbally consented to the use of an ambient scribe for clinic note documentation during this visit. I discussed with the patient the importance of maintaining adherence to her prescribed medication regimen, especially the fenofibrate, to manage her triglycerides. We reviewed the potential benefits of her current medication plan, reinforcing the continuation of current therapies including atorvastatin, Jardiance, lisinopril, and Ozempic. I also emphasized the benefits of her weight loss and the need for ongoing lifestyle modifications to manage her conditions effectively. We talked about following up with routine blood work to evaluate the effectiveness of her current regimen. I confirmed her understanding of the importance of vaccination and preventive care, and she acknowledged receiving recent immunizations. The patient consented to the outlined plan with understanding and agreement. Orders: Orders AMB Hemoglobin A1c Today E11.65 - Type 2 diabetes mellitus with hyperglycemia Microalbumin, Random (w Creat) 4 Months R80.9 - Proteinuria, unspecified Lipid Panel 4 Months E78.5 - Hyperlipidemia, unspecified Vitamin D 25-OH Total 4 Months E55.9 - Vitamin D deficiency, unspecified Comprehensive [place]. Panel Fast 4 Months E11.65 - Type 2 diabetes mellitus with hyperglycemia Medications: New fenofibrate 54 mg PO DAILY 90 tabs 1RF 90 days Discontinued fenofibrate nanocrystallized Discontinued Reason: Patient Completed Course 145 mg PO DAILY 90 tabs 1RF Patient Instructions: - Continue all current medications as prescribed. - Ensure adherence to fenofibrate therapy for triglyceride management. - Continue with lifestyle changes focusing on diet and exercise to support weight loss and overall health. - Be vigilant in monitoring blood pressure at home. - Follow through with scheduled blood work and follow-up appointments. - Review any new symptoms or concerns with me promptly.
[2024-02-20 16:17] VITALS: BP 124/72; BMI 27.6
== END 2024-02-20 16:55 | disposition home or self-care (01) ==
PROVIDERS: PCP Internal Medicine; Visit Provider Internal Medicine
DX: E11.65 Type 2 diabetes mellitus with hyperglycemia (principal); I10 Essential (primary) hypertension; E78.2 Mixed hyperlipidemia; K21.9 Gastro-esophageal reflux disease without esophagitis

== ENCOUNTER → 2024-02-20 15:57 | Outpatient (BNVA) | payer OTHER, SELFPAY | PROVIDERS: PCP Internal Medicine; Visit Provider Internal Medicine | DX: E11.65 Type 2 diabetes mellitus with hyperglycemia (principal); E78.2 Mixed hyperlipidemia; I10 Essential (primary) hypertension; K21.9 Gastro-esophageal reflux disease without esophagitis | CPT/HCPCS: 83036; 99212 ==

== ENCOUNTER 2024-02-25 12:47 | Outpatient (REF) | payer OTHER, SELFPAY ==
--- NOTE | ~2024-02-25 | MR_ITS ---
EXAMINATION: MR LUMBAR SPINE WITHOUT AND WITH CONTRAST CLINICAL INFORMATION: Radiculopathy, lumbar region COMPARISON: MR lumbar spine on 08/03/2022 TECHNIQUE: MRI of the lumbar spine was obtained using routine sequences with and without contrast. Intravenous contrast: Gadavist 7.5 mL FINDINGS: Patchy edema and enhancement involving the opposing L5-S1 endplates compatible with reactive endplate changes. No other sites of acute bone marrow abnormality or suspicious enhancement. The vertebral body heights are preserved. Multilevel disc desiccation with moderate disc height loss at L5-S1. The visualized spinal cord is normal in caliber. No abnormal cord signal or enhancement. The conus medullaris terminates at L1. T12-L1: No significant spinal canal or neural foraminal narrowing. L1-2: No significant spinal canal or neural foraminal narrowing. L2-3: Diffuse disc bulge and bilateral facet arthrosis. No significant spinal canal or neural foraminal narrowing. L3-4: Diffuse disc bulge and bilateral facet arthrosis. Patchy edema and enhancement surrounding the right L3-4 is likely degenerative. No significant spinal canal or neural foraminal narrowing. L4-5: Shallow disc bulge and bilateral facet arthrosis. No significant spinal canal or neural foraminal narrowing. L5-S1: Sequelae of right hemilaminectomy. Central disc protrusion, unchanged. Bilateral facet arthrosis. There is a 0.7 cm T2 hyperintense focus with T2 hypointense rim with associated hypoenhancement in within the left lateral recess which is new from prior. Persistent impingement of the transiting S1 nerve roots bilaterally, left greater than right. Mild spinal canal stenosis, unchanged. No significant neural foraminal narrowing. The paravertebral soft tissues are unremarkable. MR/MR lumbar spine wo/w con IMPRESSION: Postsurgical changes at L5-S1. There is a new 0.7 cm T2 hyperintense focus with T2 hypointense rim and associated hypoenhancement within the left lateral recess. This could represent a new intracanalicular synovial cyst versus disc material. Unchanged central disc protrusion causing mild spinal canal stenosis with persistent impingement of the transiting S1 nerve roots bilaterally Electronically signed by: Adrienne Rose MD 02/25/2024 02:07 PM [facility] [place]
[2024-02-25] MEDS: gadobutroL 7.5 ML VIAL IVPUSH (13:25)
== END 2024-02-25 12:48 | disposition home or self-care (01) ==
LOC: HO.MRI 12:47
PROVIDERS: PCP Internal Medicine; Visit Provider Nurse Practitioner Family
DX: M54.16 Radiculopathy, lumbar region (principal); M51.369 Other intervertebral disc degeneration, lumbar region without mention of lumbar back pain or lower extremity pain; Z98.890 Other specified postprocedural states
CPT/HCPCS: 72158; A9585

== ENCOUNTER 2024-03-05 08:26 | Outpatient (AMB) | payer OTHER, SELFPAY ==
--- NOTE | 2024-03-05 08:27 | A.OFFVIS_ITS ---
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 Patient continues to endorse significant right-sided low back with radiation into her right hip and right groin. Patient reports right hip and groin pain is more severe than low back. She denies any significant pain on the left side, except chronic neuropathy. Her pain is minimal at rest or sitting which she cur rently rates at 2/10. Pain increases with daily activities and walking and intensifies at 6-8/10 by the evening. Patient has completed PT and continues home exercise program with continued pain and decreased functioning. Hip xray showed mild arthritis. Denies any recent cough, cold, infection, fever, bladder or bowel dysfunction, saddle anesthesia, or any significant changes in medical history since last office visit. PRIOR: Patient is a pleasant 53 years old female with history of chronic low back pain, left L5-S1 microdiskectomy Dr. Fajardo 11/24/22, diabetes (A1C=5.8), h/o upper and lower end of right fibula 2020, peripheral neuropathy, chronic fatigue, presents today for initial evaluation right hip pain. Denies any recent trauma, injury or falls. Recent right hip xray showed mild arthritis. 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 Reports increasing right pain with weight bearing, changing positions from sitting to standing, prolonged walking or sitting or sleeping on her right side. She also reports chronic left leg pain associated with burning, tingling, and numbness. Patient reports back surgery significantly relieved low back and left leg pain but residual neuropathy has been bothersome. Patient takes gabapentin prescribed by PCP with partial benefit. She avoids NSAIDs unless she has severe headache. To this point, she has not tried dedicated physical therapy, chiropractic therapy, cortisone injections or massage therapy. Denies any fever, chills, abdominal or groin pain, weakness, foot drop, bladder or bowel dysfunction or saddle anesthesia. Location: Right hip, chronic left leg pain-neuropathy Duration: 1 month + Characteristics of symptom or complaint: Aching, stabbing, shooting, LLE- numbness and tingling Aggravating or associated factors: Movement, walking, weight bearing, cleaning, right side sleeping, ROM Relieving factors: Rest, sitting, gabapentin, heat therapy Treatment: None PFSH Medical History UTI (urinary tract infection) Chronic fatigue Left fibular fracture Membranous glomerulonephritis Neuropathy IBS (irritable bowel syndrome) Right hand pain Hypovitaminosis D Diabetes mellitus Mixed hyperlipidemia Essential hypertension GERD (gastroesophageal reflux disease) Surgical History History of back surgery Hx of hysterectomy History of esophagogastroduodenoscopy (EGD) Hx of colonoscopy History of hysteroscopy Family History Father No problems noted. Mother Hypertension Maternal Grandmother Breast cancer Maternal Aunt Breast cancer Maternal Aunt Uterine cancer Maternal Uncle Diabetes Family/Other Breast cancer Social History Housing: Apartment Are you a primary care team assistant to a significant other at home: Yes (daughter, family will help post-op) Do you presently have visiting nurse or other home services: No Alcohol intake: current Alcohol intake frequency: holidays/special occasions only Alcohol type: hard liquor and other Patient Tobacco Use Status: Never used Tobacco e-Cigarette/Vaping Use: Never Used Second Hand Smoke Exposure: No Advance Directives Date on File: 12/10/19 service: No Current occupational status: employed Current occupational exposures/hazards: No Cognitive needs: No Hearing needs: No Vision needs: No Review of Systems Const All systems reviewed & are unremarkable except as noted in HPI and below Physical Exam Vital Signs: Last Vital Signs Pulse 75 03/05/24 08:30 BP 189/91 H 03/05/24 08:30 Pulse Ox 98 03/05/24 08:30 Oxygen Delivery Method Room Air 03/05/24 08:30 BMI result Body Mass Index 27.3 General: Appears afebrile. Alert and oriented. Mood and affect appropriate. Follows and participates in conversation appropriately. Respiratory effort is unlabored. No cough. Able to transition from sit to stand unassisted. Ambulates with bilaterally normal heel strike and toe off. General: Yes no CVA tenderness Back/Spine/Pelvis Other: Limited lumbar ROM due to pain. Normal gait, no limping. Lumbar flexion and extension reproduce mild pain. Demonstrates 5/5 strength of quadriceps bilaterally as well as flexion/dorsiflexion of bilateral feet against resistance. 2+ pedal pulses bilaterally. Seated straight leg rise with dorsiflexion is negative bilaterally. +1 patellar and +1 achilles reflexes bilaterally. Facet loading test is positive bilaterally. Lina sign, Marky?s, Pelvic compression and Stinchfield tests reproduce right groin and lateral hip. Moderate groin pain with I/E hip rotations on the right. Mild TTP to right GTB. Valsalva maneuver negative. Back: no CVA tenderness Cervical Spine: cervical ROM normal, cervical muscular tenderness and No Cervical spine tenderness Thoracic/Lumbar Spine: thoracic and lumbar spine normal to inspection, Thoracic/lumbar spine scar(s), Lasegue's sign negative, straight leg raise negative bilaterally, pain with thoraco-lumbar ROM, paraspinal muscle tenderness, thoraco-lumbar ROM limited, No thoracic spinal tenderness and lumbar spinal tenderness (L4-S1) Pelvis: buttock tenderness on the right Sacroiliac joints: bilaterally nontender Extrem General: Yes capillary refill normal, Yes no clubbing, cyanosis or edema and Yes no calf tenderness Results Reviewed Results Reviewed: XR HIP, RIGHT 10/30/23 CLINICAL INFORMATION: Right hip pain. COMPARISON: Pelvic radiograph dated 06/27/2022. FINDINGS: No acute fracture or dislocation. No significant joint space narrowing. Tiny lateral acetabular marginal osteophytes. No osseous erosion. No evidence of femoral head avascular necrosis. No abnormal soft tissue calcification. IMPRESSION: Minimal right hip arthrosis. NERVE CONDUCTION STUDY 12/15/23 FINDINGS: Left peroneal nerve showed prolonged distal latency, normal amplitude and slow conduction velocity at fibular neck. All other nerves tested were within normal. Concentric needle EMG was performed in selected muscles of the bilateral lower extremity. Study did not reveal signs of electric abnormalities as shown in the table above. IMPRESSION: 1. This is an abnormal study. 2. There is electrodiagnostic evidence for left peroneal neuropathy at the fibular neck. 3. There is no electrodiagnostic evidence for tibial neuropathy. lumbosacral plexopathy, lumbar radiculopathy, or peripheral neuropathy. 3. No electrodiagnostic evidence for right peroneal neuropathy. MR LUMBAR SPINE WITHOUT AND WITH CONTRAST 02/25/24 CLINICAL INFORMATION: Radiculopathy, lumbar region COMPARISON: MR lumbar spine on 08/03/2022 TECHNIQUE: MRI of the lumbar spine was obtained using routine sequences with and without contrast. Intravenous contrast: Gadavist 7.5 mL FINDINGS: Patchy edema and enhancement involving the opposing L5-S1 endplates compatible with reactive endplate changes. No other sites of acute bone marrow abnormality or suspicious enhancement. The vertebral body heights are preserved. Multilevel disc desiccation with moderate disc height loss at L5-S1. The visualized spinal cord is normal in caliber. No abnormal cord signal or enhancement. The conus medullaris terminates at L1. T12-L1: No significant spinal canal or neural foraminal narrowing. L1-2: No significant spinal canal or neural foraminal narrowing. L2-3: Diffuse disc bulge and bilateral facet arthrosis. No significant spinal canal or neural foraminal narrowing. L3-4: Diffuse disc bulge and bilateral facet arthrosis. Patchy edema and enhancement surrounding the right L3-4 is likely degenerative. No significant spinal canal or neural foraminal narrowing. L4-5: Shallow disc bulge and bilateral facet arthrosis. No significant spinal canal or neural foraminal narrowing. L5-S1: Sequelae of right hemilaminectomy. Central disc protrusion, unchanged. Bilateral facet arthrosis. There is a 0.7 cm T2 hyperintense focus with T2 hypointense rim with associated hypoenhancement in within the left lateral recess which is new from prior. Persistent impingement of the transiting S1 nerve roots bilaterally, left greater than right. Mild spinal canal stenosis, unchanged. No significant neural foraminal narrowing. The paravertebral soft tissues are unremarkable. IMPRESSION: Postsurgical changes at L5-S1. There is a new 0.7 cm T2 hyperintense focus with T2 hypointense rim and associated hypoenhancement within the left lateral recess. This could represent a new intracanalicular synovial cyst versus disc material. Unchanged central disc protrusion causing mild spinal canal stenosis with persistent impingement of the transiting S1 nerve roots bilaterally Assessment & Plan Assessment & Plan (1) Right hip pain: Code(s): M25.551 - Pain in right hip Category: Medical (2) Osteoarthritis of right hip: Code(s): M16.11 - Unilateral primary osteoarthritis, right hip Category: Medical (3) Lumbar degenerative disc disease: Code(s): M51.36 - Other intervertebral disc degeneration, lumbar region Category: Medical (4) History of back surgery: Comment: spinal surgery 11/24/2022 Code(s): Z98.890 - Other specified postprocedural states Category: Surgical (5) Lumbar radiculopathy: Code(s): M54.16 - Radiculopathy, lumbar region Category: Medical Plan Discussed lumbar spine MRI imaging results with patient today. Patient denies any signicant symptoms on the left and continues to endorse right hip and groin pain as main pain generator. We will proceed with right hip intra-articular steroid injection with local and fluoroscopy. Expectations, risks and benefits were reviewed. Patient is aware she will be contacted to schedule this procedure. All questions were answered and the patient is in agreement of plan. Follow-up after injection and sooner as needed. Coding Level of Care Code Est Pt Level 4 (31671) Complex EM visit Add On G2211 Diagnoses Right hip pain M25.551 Osteoarthritis of right hip M16.11 Lumbar degenerative disc disease M51.36 History of back surgery Z98.890 Lumbar radiculopathy M54.16
[2024-03-05 08:30] VITALS: BP 189/91; PULSE 75; O2SAT 98; BMI 27.3
== END 2024-03-05 09:01 | disposition home or self-care (01) ==
PROVIDERS: PCP Internal Medicine; Visit Provider Nurse Practitioner Family
DX: M25.551 Pain in right hip (principal); M16.11 Unilateral primary osteoarthritis, right hip; M51.369 Other intervertebral disc degeneration, lumbar region without mention of lumbar back pain or lower extremity pain; Z98.890 Other specified postprocedural states; M54.16 Radiculopathy, lumbar region
CPT/HCPCS: 99214; G2211

== ENCOUNTER → 2024-03-05 08:26 | Outpatient (BNVA) | payer OTHER, SELFPAY | PROVIDERS: PCP Internal Medicine; Visit Provider Nurse Practitioner Family | DX: M51.360 Other intervertebral disc degeneration, lumbar region with discogenic back pain only (principal); M25.551 Pain in right hip; M16.11 Unilateral primary osteoarthritis, right hip; M54.16 Radiculopathy, lumbar region; Z98.890 Other specified postprocedural states | CPT/HCPCS: 99212 ==

== ENCOUNTER 2024-05-21 06:02 | Outpatient (REF) | payer OTHER, SELFPAY ==
--- NOTE | ~2024-05-21 | FL_ITS ---
EXAMINATION: XR FLUOROSCOPY WITH IMAGES CLINICAL INFORMATION: Pain management injection right hip. COMPARISON: 10/30/2023. TECHNIQUE: Fluoroscopy provided to: Dr. Mc Fluoroscopy time: 0.1 minutes DAP: 0.0558 mGycm2 Images: 1 FINDINGS: Solitary image taken right hip during intra-articular injection. Refer to the full procedural report for details. FL/FL guidance in treatment room IMPRESSION: Fluoroscopic guidance. Electronically signed by: Tomy Thomas MD 05/27/2024 08:37 AM EDT
== END 2024-05-21 06:03 | disposition home or self-care (01) ==
LOC: CF 06:02
PROVIDERS: Visit Provider Anesthesiology
DX: M16.11 Unilateral primary osteoarthritis, right hip (principal); M25.551 Pain in right hip
CPT/HCPCS: 20610; 77002; J2003; J2795; J3301; Q9967

== ENCOUNTER 2024-05-21 07:15 | Outpatient (AMB) | payer OTHER, SELFPAY ==
--- OUTSIDE RECORDS SUMMARY | 2024-05-21 07:17 | XMS_ITS | Clinical Summary ---
Author Organization [facility] Address [address] [place] [address] Care Team Providers Care Computer Hardware Engineer Name Role Phone Chloe Estrada MD Primary Care Provider Allergies No known active allergies Medications cholecalciferol [...] Exam 04/03/2020 Influenza Vaccine (#1) [address] [place] [address] [place] [address] [facility] Care Teams Computer Hardware Engineer Relationship Specialty Start Date End Date Chloe Estrada MD [address] [place] [address] PCP - General 03/16/20
[2024-05-21 07:24] VITALS: BP 110/77; PULSE 80; RESP 16; O2SAT 100
--- NOTE | 2024-05-21 07:24 | MHC.OFFVIS ---
Vital Signs 05/21/24 07:24 05/21/24 07:53 BP 110/77 135/85 Blood Pressure Location Lt brachial Lt brachial Position Sitting Sitting Respiration 16 16 Pulse 80 77 Pulse Source Pulse Oximeter Pulse Oximeter Pulse Oximetry (%) 100 99 Oxygen Delivery Method Room Air Room Air Intake Visit Reasons: RIGHT INTRA-ARTICULAR HIP INJECTION Armhole Raiser Lockstitch Required: No Allergies No Known Allergies [No Known Allergies*] Allergy (Verified 05/21/24 07:26) Medication List - Last Reconciled 05/21/24 by Madison Yap LPN atorvastatin 80 mg PO DAILY cholecalciferol (vitamin D3) 50 mcg PO DAILY 90 days empagliflozin (Jardiance) 10 mg PO DAILY 90 days fenofibrate 54 mg PO DAILY 90 days gabapentin 600 mg (2 x 300 mg) PO BID 30 days lisinopril 5 mg PO DAILY minoxidil 2.5 mg PO DAILY pantoprazole 40 mg PO DAILY 90 days semaglutide (Ozempic) 2 mg (0.75 mL) subcut QWEEK 4 weeks triamcinolone acetonide 0.025% 1 appl topical DAILY PFSH Medical History UTI (urinary tract infection) Chronic fatigue Left fibular fracture Membranous glomerulonephritis Neuropathy IBS (irritable bowel syndrome) Right hand pain Hypovitaminosis D Diabetes mellitus Mixed hyperlipidemia Essential hypertension GERD (gastroesophageal reflux disease) Surgical History History of back surgery Hx of hysterectomy History of esophagogastroduodenoscopy (EGD) Hx of colonoscopy History of hysteroscopy Family History Father No problems noted. Mother Hypertension Maternal Grandmother Breast cancer Maternal Aunt Breast cancer Maternal Aunt Uterine cancer Maternal Uncle Diabetes Family/Other Breast cancer Social History Housing: Apartment Are you a primary primary care nurse practitioner to a significant other at home: Yes (daughter, family will help post-op) Do you presently have visiting nurse or other home services: No Alcohol intake: current Alcohol intake frequency: holidays/special occasions only Alcohol type: hard liquor and other Patient Tobacco Use Status: Never used Tobacco e-Cigarette/Vaping Use: Never Used Second Hand Smoke Exposure: No Advance Directives Date on File: 12/10/19 service: No Current occupational status: employed Current occupational exposures/hazards: No Cognitive needs: No Hearing needs: No Vision needs: No Physical Exam Vital Signs: Last Vital Signs Pulse 77 05/21/24 07:53 Resp 16 05/21/24 07:53 BP 135/85 05/21/24 07:53 Pulse Ox 99 05/21/24 07:53 Oxygen Delivery Method Room Air 05/21/24 07:53 Assessment & Plan Assessment & Plan (1) Osteoarthritis of right hip: Code(s): M16.11 - Unilateral primary osteoarthritis, right hip Category: Medical (2) Right hip pain: Code(s): M25.551 - Pain in right hip Category: Medical Plan right intra-articular hip steroid injection. Informed consent was explained to the patient. Risks and benefits were explained. All questions were answered. The patient came to the operating room and positioned left lateral decubitus on operating table. Time-out was performed delineating right side is the side and site of the procedure. Name and date of of the patient's were stated. Non dependent right hip was prepped with ChloraPrep and draped with sterile utility towels. C-arm was brought over the operating field and picture of the nondependent right hip joint was demonstrated on the screen. The upper portion of the trochanter injection to the skin was chosen as the starting point of the injection. It was infiltrated with mixture of lidocaine 2% and ropivacaine 0.5% one-to-one. After that 22 gauge 5 in needle was inserted through the skin wheal and advanced to were the right hip joint on anterior posterior and lateral views. When on anterior posterior view the tip of the needle entered the silhouette of the hip joint injection of the contrast performed demonstrating arthrogram. After that injection of the treatment solution containing ropivacaine 0.5% 4 cc mixed with Kenalog 40 mg was performed. The patient tolerated the procedure well. The needle was removed sterile Band-Aid was applied. Patient will go to the operating room to recovery room where she recovered uneventfully. Orders: Orders FL guidance in treatment room Today M16.11 - Unilateral primary osteoarthritis, right hip Coding Level of Care Code Procedure Only Diagnoses Osteoarthritis of right hip M16.11 Right hip pain M25.551
[2024-05-21 07:53] VITALS: BP 135/85; PULSE 77; RESP 16; O2SAT 99
== END 2024-05-21 07:52 | disposition home or self-care (01) ==
LOC: HO.PMCPRC 07:15
PROVIDERS: PCP Internal Medicine; Visit Provider Anesthesiology
DX: M16.11 Unilateral primary osteoarthritis, right hip (principal); M25.551 Pain in right hip
CPT/HCPCS: 20610; 77002

== ENCOUNTER 2024-06-01 08:00 | Outpatient (REF) | payer OTHER, SELFPAY ==
[2024-06-01 09:13] LABS: Appearance Urine Turbid; Color Urine Dark Yellow; Glucose Urine UA >=1000 mg/dL (Negative); Leukocyte Esterase Urine Moderate (2+) (Negative); Nitrite Urine Negative (Negative); PH 5.5 (5.0-9.0); Specific Gravity - Urine >= 1.030 (1.005-1.025); UMIC TRIGGER UACC YES; Urine Blood Negative (Negative); Urine Ketones Trace mg/dL (Negative); Urine Protein 30 (1+) mg/dL (Neg-Trace)
[2024-06-01 09:24] LABS: Bacteria Urine 4+ (None Seen); RBC Urine 0-2 /HPF (0-2); Renal Epithelial Cells Urine Present; Squamous Epithelial Cell Urine >20 /HPF (0-2); Transitional Epi Cells Urine Present; UACC Culture Trigger YES
[2024-06-01 09:54] LABS: Creatinine Urine 324.99 mg/dL; Microalbum/Creatinine Ratio Ur 22.4 ug/mg cr (<30)
[2024-06-01 10:27] LABS: Alanine Aminotransferase 38 U/L (0-31); Albumin Level 4.2 g/dL (3.5-5.0); Alkaline Phosphatase 99 U/L (39-117); Anion Gap 13 (12-20); Aspartate Amino Transferase 33 U/L (5-31); Blood Urea Nitrogen 23 mg/dL (9-16); Calcium 9.1 mg/dL (8.4-10.2); Carbon Dioxide 23 mmol/L (22-29); Chloride 105 mmol/L (96-108); Cholesterol 126 mg/dL (<200); Estimated Glomerular Filt Rate > 60; Glucose Fasting 133 mg/dL (60-99); HDL Cholesterol 34 mg/dL (>40); LDL Cholesterol Calculated 72 mg/dL (<100); Potassium 3.7 mmol/L (3.3-5.1); Sodium 137 mmol/L (135-145); Total Protein 7.5 g/dL (6.5-8.0); Triglycerides 102 mg/dL (<150)
[2024-06-01 10:47] LABS: Vitamin D 25-OH Total 37.1 ng/mL (>30)
== END 2024-06-01 08:01 | disposition home or self-care (01) ==
LOC: HO.LAB 08:00
PROVIDERS: PCP Internal Medicine; Visit Provider Internal Medicine
DX: E11.65 Type 2 diabetes mellitus with hyperglycemia (principal); R80.9 Proteinuria, unspecified; E78.5 Hyperlipidemia, unspecified; E55.9 Vitamin D deficiency, unspecified
CPT/HCPCS: 36415; 80053; 80061; 81001; 82043; 82306; 82570; 87086

== ENCOUNTER 2024-06-04 07:55 | Day surgery (SDC) | payer OTHER, SELFPAY ==
--- OUTSIDE RECORDS SUMMARY | 2024-05-14 16:56 | XMS_ITS | Patient Health Record ---
Author Organization [facility] Address [address] [place] [id number] Care Team Providers Care Multimedia Engineer Name Role Phone Chloe Estrada Primary Care Provider Unavailab Sanjiv Fink Jr Unavailable [phone] Mando Tapia Unavailable Unavailable Allergies No Known Allergies Reason For Referral No Information Medications Medication SIG (Take, Route, Frequency, Duration) Notes Start Date End Date Status Minoxidil 2.5 MG TAKE 1 TABLET DAILY FOR HAIR LOSS. Oral for 90 Days Active Atorvastatin Calcium 20 MG TAKE 1 TABLET BY MOUTH EVERY DAY Oral for 30 Active Pantoprazole Sodium 40 MG 1 tablet Orall y Once a day for 30 day(s) 09/19/2014 Active Ozempic (2 MG/DOSE) 8 MG/3ML INJECT 2 MG (0.75 ML) SUBCUTANEOUSLY EVERY WEEK FOR 4 WEEKS Subcutaneous for 28 Days Active Lisinopril 10 MG TAKE 1 TABLET BY PABLO TH EVERY DAY Oral for 30 Active Jardiance 10 MG TAKE 1 TABLET (10 MG ) ORALLY DAILY FOR 90 DAYS Oral for 90 Days Active Triamcinolone Acetonide 0.025 % External for 30 Active MiraLax (colon prep) 17 GM/SCOOP mixed with Gatorade or Crystal Light Orally begin at 5:00 p.m. the day before the procedure for 1 day 04/24/2024 Active Gabapentin 300 MG Oral for 30 Active Fenofibrate 54 MG TAKE 1 TABLET BY PABLO TH EVERY DAY Oral for 90 Days Activ e Vitamin D Active Immunizations Vaccine Route Administration Date Status Comme nts Influenza Unknown 02/03/2021 Administered Influenza Unknown 11/21/2023 Administered Problems Problem Type SNOMED Code ICD Code Onset Dates Problem Status W/U Status Risk Notes Problem 596632083 Colon cancer screening (Z12.11) Active confirmed Problem 913264784 Irritable bowel syndrome with diarrhea (K58.0) Active confirmed Problem 235148859 Screening for co bud cancer (Z12.11) Active confirmed Problem 167204835 Abnormal liver function tests (R79.89) Active confirmed Problem 77986333 Irritable bowel syndrome with both constipation and diarrhea (K58.2) Active confirmed Problem 645628786 Membranous glomerulonephritis, 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 confirmed Problem 857252467 Gastroesophageal reflux disease, unspecified whether esophagitis present (K21.9) Active confirmed Vital Signs Temperature 97.5 degrees Fahrenheit 04/24/2024 Blood pressure diastolic 01 mm Hg 04/24/2024 Height 68 in 04/24/2024 Blood pressure systolic 001 mm Hg 04/24/2024 Weight 169.2 lbs 04/24/2024 BMI 25.72 kg/m2 04/24/2024 Encounters Encounter Location Date Provider Diagnosis [facility] [address] [place] [id number] 04/24/2024 Sanjiv Salguero Jr Colon cancer screening Z12.11 ; Gastroesophageal reflux disease, unspecified whether esophagitis present K21.9 and Irritable bowel syndrome with both constipation and diarrhea K58.2 [facility] [address] [place] [phone] 03/13/2024 Sanjiv Salguero Jr Assessments Encounter Date Diagnosis (ICD Code) Assessment Notes Treatment Notes Treatment Clinical Notes Section Notes 04/24/2024 Colon cancer screening (ICD-10 - Z12.11) Colon cancer screening material was printed We discussed gastroesophageal reflux disease today. We discussed diet, lifestyle modifications, and weight management regarding the treatment of reflux. She will continue pantoprazole. For her IBS, she will follow a high-fiber diet. She is due for colorectal cancer screening. This will be arranged. She is advised to stop Ozempic one week before the procedure and Jardiance 3 days before the procedure. 04/24/2024 Gastroesophageal reflux disease, unspecified whether esophagitis present (ICD-10 - K21.9) We discussed gastroesophageal reflux disease today. We discussed diet, lifestyle modifications, and weight management regarding the treatment of reflux. She will continue pantoprazole. For her IBS, she will follow a high-fiber diet. She is due for colorectal cancer screening. This will be arranged. She is advised to stop Ozempic one week before the procedure and Jardiance 3 days before the procedure. 04/24/2024 Irritable bowel syndrome with both constipation and diarrhea (ICD-10 - K58.2) We discussed gastroesophageal reflux disease today. We discussed diet, lifestyle modifications, and weight management regarding the treatment of reflux. She will continue pantoprazole. For her IBS, she will follow a high-fiber diet. She is due for colorectal cancer screening. This will be arranged. She is advised to stop Ozempic one week before the procedure and Jardiance 3 days before the procedure. Plan Of Treatment Future Test Test Name Order Date UPPER GI ENDOSCOPY 06/04/2014 COLONOSCOPY 08/03/2017 COLONOSCOPY 03/18/2021 COLONOSCOPY 04/24/2024 Next Appt Details Provider Name:Sanjiv hoffman Jr, 06/04/2024 09:50:00 AM, [address] [place] [address], [phone], Insurance Providers Payer Name Payer Address Payer Phone Subscriber Number Group Number Insured Name Patient Relationship to Insured Coverage Start Date Coverage End Date [facility] [address] [address] [place], [place] [id number] PRASHANT KUMAR Self - patient is the insured Medical (General) History Medical History History ICD Code Colonoscopy 04/27, for tubular adenomas, five-year followup diabetes mellitus Neuropathy Left fibula fracture, 2020 Membranous glomerulonephritis Back pain Surgical History Surgery Date(Month/Year) back surgery 11/26 partial hysterectomy feb 21, 2017
--- OUTSIDE RECORDS SUMMARY | 2024-05-14 16:56 | XMS_ITS | Clinical Summary ---
Author Organization [facility] Address [address] [place] [id number] Care Team Providers Care Registered Nurse Supervisor Name Role Phone Chloe Estrada MD Primary Care Provider [phone] Allergies No known active allergies Medications cholecalciferol (VITAMIN D-3) 25 MCG (1000 UT) capsule Take 1 capsule by mouth 1 (one) time each day Active pioglitazone (ACTOS) 30 MG tablet Take 1 tablet by mouth 1 (one) time each day Active pantoprazole (PROTONIX) 40 MG EC tablet Take 1 tablet by mouth 1 (one) time each day Active omega-3 (FISH OIL) 1000 MG capsule Take 1 capsule by mouth 1 (one) time each day Active metFORMIN (GLUCOPHAGE) 1000 MG tablet Take 1 tablet by mouth 2 (two) times a day Active lisinopril 5 MG tablet Take 1 tablet by mouth 1 (one) time each day 11/13/2018 Active fenofibrate (TRICOR) 54 MG tablet Take 1 tablet by mouth 1 (one) time each day Active Trulicity 0.75 MG/0.5ML solution pen-injector 12/15/2020 Active gabapentin (NEURONTIN) 300 MG capsule 12/31/2020 Active Active Problems Problem Noted Date Diagnosed Date Essential hypertension 01/08/2021 Membranous glomerulonephritis 01/08/2021 Proteinuria 01/08/2021 Renal disorder due to type 2 diabetes mellitus 1 03/10/2020 Type 2 diabetes mellitus without complication Vitamin D deficiency 01/08/2021 Diabetes mellitus 10/13/2016 Gastroesophageal reflux disease 10/13/2016 Family History Medical History Relation Comments Hypertension Mother Relation Status Comments Mother Social History Tobacco Use Types Packs/Day Years Used Date Smoking Tobacco: Never Alcohol Use Standard Drinks/Week Comments No 0 (1 standard drink = 0.6 oz pur e alcohol) Comments Unknown Sex and Gender Information Value Date Recorded Sex Assigned at Not on file Legal Sex Female 4:50 PM EST Gender Identity Not on file Sexual Orientation Not on file Last Filed Vital Signs Vital Sign Reading Time Taken Comments Blood Pressure 121/80 01/17/2022 3:06 PM EST Pulse 67 01/17/2022 3:06 PM EST Temperature - - Respiratory Rate - - Oxygen Saturation 98% 01/17/2022 3:06 PM EST Inhaled Oxygen Concentration - - Weight 81.2 kg (179 lb) 01/17/2022 3:06 PM EST Height 170.2 cm (5' 7 ) 01/13/2020 12:00 PM EST Body Mass Index 28.04 01/13/2020 12:00 PM EST Plan of Treatment Health Maintenance Due Date Last Done Comments Breast Cancer Screening 1970 Pneumococcal Vaccine: Pediat rics (0 to 5 Years) and At-Risk Patients (6 to 64 Years) (1 of 2 - PCV) 1976 Hepatitis B Vaccine (1 of 3 - 19+ 3-dose series) 06/15 Colorectal Cancer Screening: Annual FOBT 06/16/2019 Colorectal Cancer Screening: Colonoscopy 06/16/2019 Colorectal Cancer Screening: Sigmoidoscopy 06/16/2019 Diabetes: Hemoglobin A1C 04/03/2020 Diabetes: Ophthalmology Exam 04/03/2020 Diabetes: Pedal Pulse Checked 04/03/2020 Diabetes: Sensory Foot Exam 04/03/2020 Diabetes: Visual Foot Exam 04/03/2020 Influenza Vaccine (#1) [address] [place] [place] [address] MEDICAID [facility] MEDICAID Care Teams Registered Nurse Supervisor Relationship Specialty Start Date End Date Chloe Estrada MD [address] [place] [address] PCP - General 03/16/20
--- OUTSIDE RECORDS SUMMARY | 2024-05-14 16:56 | XMS_ITS ---
Author Organization [facility] Address [address] [place] [phone] Care Team Providers Care Nuclear Powerplant Supervisor Name Role Phone Chloe Estrada Primary Care Provider Unavailab Sanjiv Fink Jr Unavailable Mando Tapia Unavailable Unavailable Allergies No Known Allergies REASON FOR VISIT Patient presents today for a recall colonoscopy Medications Medication SIG (Take, Route, Frequency, Duration) Notes Start Date End Date Status Atorvastatin Calcium 20 MG TAKE 1 TABLET BY MOUTH EVERY DAY Oral for 30 Active Gabapentin 300 MG Oral for 30 Active Vitamin D Active Minoxidil 2.5 MG TAKE 1 TABLET DAILY FOR HAIR LOSS. Oral for 90 Days Active Pantoprazole Sodium 40 MG 1 tablet Orall y Once a day for 30 day(s) 09/19/2014 Active Lisinopril 10 MG TAKE 1 TABLET BY PABLO TH EVERY DAY Oral for 30 Active Fenofibrate 54 MG TAKE 1 TABLET BY PABLO TH EVERY DAY Oral for 90 Days Activ e Ozempic (2 MG/DOSE) 8 MG/3ML INJECT 2 MG (0.75 ML) SUBCUTANEOUSLY EVERY WEEK FOR 4 WEEKS Subcutaneous for 28 Days Active Jardiance 10 MG TAKE 1 TABLET (10 MG ) ORALLY DAILY FOR 90 DAYS Oral for 90 Days Active Triamcinolone Acetonide 0.025 % External for 30 Active MiraLax (colon prep) 17 GM/SCOOP mixed with Gatorade or Crystal Light Orally begin at 5:00 p.m. the day before the procedure for 1 day 04/24/2024 Active Problems Problem Type SNOMED Code ICD Code Onset Dates Problem Status W/U Status Risk Notes Problem [id number] Irritable bowel syndrome with both constipation and diarrhea (K58.2) Active confirmed Vital Signs Temperature 97.5 degrees Fahrenheit 04/24/19 25 Blood pressure systolic 001 mm Hg 04/24/19 25 Blood pressure diastolic 01 mm Hg 025 Height 68 in 04/24/2024 Weight 169.2 lbs 04/24/2024 BMI 25.72 kg/m2 04/24/2024 Encounters Encounter Location Date Provider Diagnosis [facility] [address] [place] [address] 04/24/2024 Sanjiv Salguero Jr Colon cancer screening Z12.11 ; Gastroesophageal reflux disease, unspecified whether esophagitis present K21.9 and Irritable bowel syndrome with both constipation and diarrhea K58.2 Assessments Encounter Date Diagnosis (ICD Code) Assessment [...] days before the procedure. Plan Of Treatment Medication Medication Name Sig Start Date Stop Date Notes MiraLax (colon prep) 17 GM/SCOOP mixed with Gatorade or Crystal Light Orally begin at 5:00 p.m. the day before the procedure for 1 day 04/24/2024 Treatment Notes Assessment Notes Colon cancer screening Colon cancer scre ening material was printed Future Test Test Name Order Date COLONOSCOPY 04/24/2024 Next Appt Details Follow Up: 1 Year, Reason: Provider Name:Sanjiv hoffman Jr, 06/04/2024 09:50:00 AM, [address] [place] [address], [id number], Progress Notes * EMILY BARROWB:1970 (53 yo F)Acc No.[id number]:04/24/2024 Progress Notes Patient:?PRASHANT BARROW Provider:?Sanjiv Salguero MD :1970???Age:53 Y???Sex:Female D ate:04/24/2024 Address:[address] [place], [place] [id number] Pcp:Chloe Vargas Subjective: * Chief Complaints: * ???1. Patient presents today for a recall colonoscopy. * HPI: ???New symptom(s):? The patient is a pleasant 53-year-old woman seen today in consultation. She has a long-standing history of gastroesophageal reflux disease with substernal burning precipitated by typical foods including spicy foods and fatty foods. Symptoms are well-controlled on pantoprazole 40 mg daily. She has no dysphagia, hematemesis, or melena. ?She also has a history of irritable bowel syndrome with irregular bowel movements including some constipation alternating with diarrhea. She has no rectal bleeding. She tries to follow a high-fiber diet. She last underwent colonoscopy in 2021 with removal of 4 tubular adenomas and is due for followup colonoscopy. We discussed this today. * ROS:?General/Constitutional:?Change in appetite?denies.?Fatigue?denies.?ENT:?Patient denies?difficulty swallowing.?Respiratory:?Patient denies?shortness of breath.?Cardiovascular:?Patient denies?chest pain.?Gastrointestinal:?Comments?See HPI for details.?Genitourinary:?Difficulty urinating?denies.?Incontinence?denies.?Musculoskeletal:?Patient denies?muscle aches.?Skin:?Patient denies?pruritis.?Neurologic:?Patient denies?low back pain.?Psychiatric:?Patient denies?mental or physical abuse.? * Medical History:?Colonoscopy 04/27, for tubular adenomas, five-year followup, Diabetes mellitus, Neuropathy, Left fibula fracture, 2020, Membranous glomerulonephritis, Back pain. * Surgical History:?partial hy sterectomy feb 21, 2017, back surgery 11/26. * Family History:?Father: makenzie francisco?Mother: alive, diagnosed with HTN (hypertension).? no known hx of colon ca , polyps or liver ds. * Social History:?Tobacco Use:?Tobacco Use/Smoking?Are you a: nonsmoker.?Drugs/Alcohol:?Alcohol Screen?Points: 1, Interpretation: Negative.?Miscellaneous:?Marital status: single. 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 * Medications:?Taking Pantopra zole Sodium 40 MG Tablet Delayed Release 1 tablet Orally Once a day, Taking Lisinopril 10 MG Tablet TAKE 1 TABLET BY MOUTH EVERY DAY Oral , Taking Atorvastatin Calcium 20 MG Tablet TAKE 1 TABLET BY MOUTH EVERY DAY Oral , Taking Vitamin D , Taking Gabapentin 300 MG Capsule Oral , Taking Triamcinolone Acetonide 0.025 % Cream External , Taking Ozempic (2 MG/DOSE) 8 MG/3ML Solution Pen-injector INJECT 2 MG (0.75 ML) SUBCUTANEOUSLY EVERY WEEK FOR 4 WEEKS Subcutaneous , Taking Jardiance 10 MG Tablet TAKE 1 TABLET (10 MG) ORALLY DAILY FOR 90 DAYS Oral , Taking Minoxidil 2.5 MG Tablet TAKE 1 TABLET DAILY FOR HAIR LOSS. Oral , Taking Fenofibrate 54 MG Tablet TAKE 1 TABLET BY MOUTH EVERY DAY Oral , Discontinued MiraLax (colon prep) 17 GM/SCOOP Powder mixed with Gatorade or Crystal Light Orally begin at 5:00 p.m. the day before the procedure, Discontinued metFORMIN HCl ER 500 MG Tablet Extended Release 24 Hour TAKE 2 TABLETS WITH MEAL TWICE A DAY ORALLY 30 DAY(S) Oral , Discontinued Trulicity 0.75 MG/0.5ML Solution Pen-injector Subcutaneous , Discontinued Vitamin D3 50 MCG (1999 UT) Tablet Oral , Discontinued [place]-3 Fish Oil 1000 MG Capsule Oral , Discontinued Fish Oil 1000 MG Capsule Oral , Medication List reviewed and reconciled with the patient * Allergies:?N.K.D.A. Objective: * Vitals:?Wt: 169.2 lbs, Ht: 6 8 in, BMI:25.72 Index, BP: 001/01 mm Hg, Temp: 97.5, Wt-k.75. * Examination: ???General Examination: ?GENERAL APPEARANCE:?in no acute distress.?HEAD:?normocephalic.?EYES:?sclera non-icteric.?ORAL CAVITY:?mucosa moist.?NECK/THYROID:?no lymphadenopathy.?SKIN:?anicteric.?HEART:?S1, S2 normal, no murmurs.?LUNGS:?clear to auscultation bilaterally.?CHEST:?normal shape and expansion.?ABDOMEN:?soft, nontender, nondistended, bowel sounds present, no organomegaly .?EXTREMITIES:?no clubbing, cyanosis, or edema.?PSYCH:?cognitive function intact.? Assessment: * Assessment: 1.?Gastroesophageal reflux d isease, unspecified whether esophagitis present - K21.9 (Primary)?2.?Colon cancer screening - Z12.11?3.?Irritable bowel syndrome with both constipation and diarrhea - K58.2? We discussed gastroesophagea l reflux disease today. We discussed diet, lifestyle modifications, and weight management regarding the treatment of reflux. She will continue pantoprazole. For her IBS, she will follow a high-fiber diet. She is due for colorectal cancer screening. This will be arranged. She is advised to stop Ozempic one week before the procedure and Jardiance 3 days before the procedure. Plan: * Treatment: Notes: Colon cancer screening material was printed?? * Procedure Codes:?3017F COLOR ECTAL CA SCREEN DOC REV, G9903 Pt scrn tbco id as non user, G9745 DOC RSN FOR NOT SCREEN/REC F/U HBP * Preventive Medicine:? ??Counseling:?Care goal follow-up plan:?Above Normal BMI Follow-up?Dietary management education, guidance, and counseling,?BMI management provided?Yes.? * Follow Up:?1 Year * * Sign off status: Completed true * Provider:?Sanjiv Salguero MD Date:?0 04/24/2024 Generated for Mei botello/Sal/eTransmitting on:?05/14/2024 04:55 PM EDT History and Physical Notes * HPI (History of Present Illness) Category Sub-Category Detail Notes Category Not es New symptom(s) The patient is a pleasant 53-year-old woman seen today in consultation. She has a long-standing history of gastroesophageal reflux disease with substernal burning precipitated by typical foods including spicy foods and fatty foods. Symptoms are well-controlled on pantoprazole 40 mg daily. She has no dysphagia, hematemesis, or melena. She also has a history of irritable bowel syndrome with irregular bowel movements including some constipation alternating with diarrhea. She has no rectal bleeding. She tries to follow a high-fiber diet. She last underwent colonoscopy in 2021 with removal of 4 tubular adenomas and is due for followup colonoscopy. We discussed this today. Examination Category Sub-Category Detail Notes Category Not es General Examination GENERAL APPEARANCE: in no acute di stress HEAD: normocephalic EYES: sclera non-icteric NECK/THYROID: no lymphadenopathy HEART: S1, S2 normal, no mu rmurs CHEST: normal shape and exp ansion LUNGS: clear to auscultatio n bilaterally ABDOMEN: soft, nontender, non distended, bowel sounds present, no organomegaly SKIN: anicteric EXTREMITIES: no clubbing, cyanosi s, or edema PSYCH: cognitive function i ntact ORAL CAVITY: mucosa moist
--- OUTSIDE RECORDS SUMMARY | 2024-05-14 16:56 | XMS_ITS ---
Author Organization [facility] Address [address] [place] [address] Care Team Providers Care Cereal Popper Name Role Phone Chloe Estrada Primary Care Provider Unavailab Sanjiv Fink Jr Unavailable Mando Tapia Unavailable Unavailable REASON FOR VISIT please update insurance Encounters Encounter Location Date Provider Diagnosis [facility] [address] [place] [phone] 03/13/2024 Sanjiv Salgureo Jr Plan Of Treatment Next Appt Details Provider Name:Sanjiv hoffman Jr, 06/04/2024 09:50:00 AM, [address] [place] [address] , [place], [place], [phone], Progress Notes * EMILY BARROWB:1970 (53 yo F)Acc No.[id number]:03/13/2024 Patient:?PRASHANT BARROW :1970???Age:53 Y???Sex:Female Address:[address] [place] [address] * true * Date:? Generated for Mei botello/Sal/eTransmitting on:?05/14/2024 04:56 PM EDT
[2024-05-31 11:55] VITALS: BMI 25.7
--- NOTE | 2024-06-03 08:53 | P.CONAN_ITS ---
Documented by User: Leticia Griffin NP 06/03/24 08:53 HPI - Anesthesia Eval Consult details Narrative: 53yo F for Colonoscopy Anesthesia Pre-Procedure Meds Is the patient on any of the following meds?: GLP1/DPP4 and SGLT2 Inhib PMFSH Active Problems Active Problems: All Active Problems History of back surgery (Acute) Lumbar radiculopathy (Acute) Peripheral neuropathy (Acute) Osteoarthritis of right hip (Acute) Right hip pain (Acute) Physical exam (Acute) Left leg pain (Acute) S/P spinal surgery (Acute) Breast pain, right (Acute) Lumbar disc herniation with radiculopathy (Acute) Acute lumbar radiculopathy (Acute) Lumbar degenerative disc disease (Acute) Fracture of distal end of right fibula (Acute) Conjunctivitis (Acute) Chronic fatigue (Acute) Right hand pain (Acute) Hypovitaminosis D (Acute) Diabetes mellitus (Acute) Mixed hyperlipidemia (Acute) Essential hypertension (Acute) GERD (gastroesophageal reflux disease) (Acute) Past Medical History Medical History UTI (urinary tract infection) Chronic fatigue Left fibular fracture Membranous glomerulonephritis Neuropathy IBS (irritable bowel syndrome) Right hand pain Hypovitaminosis D Diabetes mellitus Mixed hyperlipidemia Essential hypertension GERD (gastroesophageal reflux disease) Family History Family History Father No problems noted. Mother Hypertension Maternal Grandmother Breast cancer Maternal Aunt Breast cancer Maternal Aunt Uterine cancer Maternal Uncle Diabetes Family/Other Breast cancer Family history of problems with anesthesia: No Surgical History Surgical History History of back surgery Hx of hysterectomy History of esophagogastroduodenoscopy (EGD) Hx of colonoscopy History of hysteroscopy History of Problems with Anesthesia: No Social History Social History Housing: Apartment Are you a primary career development engineer to a significant other at home: Yes (daughter, family will help post-op) Do you presently have visiting nurse or other home services: No Alcohol intake: current Alcohol intake frequency: holidays/special occasions only Alcohol type: hard liquor and other Patient Tobacco Use Status: Never used Tobacco e-Cigarette/Vaping Use: Never Used Second Hand Smoke Exposure: No Advance Directives Date on File: 12/10/19 service: No Current occupational status: employed Current occupational exposures/hazards: No Cognitive needs: No Hearing needs: No Vision needs: No Meds Allergies Allergy/AdvReac Type Severity Reaction Status Date / Time No Known Allergies Allergy Verified 05/21/24 07:26 [No Known Allergies*] Home Medications ?Medication ?Instructions ?Recorded ?Confirmed ?Last Taken ?Type triamcinolone acetonide 0.025 % 1 applic topical DAILY 01/28/20 05/31/24 Unknown History topical cream minoxidil 2.5 mg tablet 2.5 mg PO DAILY 03/05/24 05/31/24 Unknown History lisinopril 5 mg tablet 5 mg PO DAILY 05/31/24 05/31/24 Unknown History Exam Height,Weight and Vital Signs: Height 5 ft 8 in Weight 76.714 kg Assessment and Plan Assessment Anesthesia Assessment: Chart Reviewed Final Anesthetic Review Family History of Problems with Anesthesia: No History of Problems with Anesthesia: No Documented by User: May Becker MD 06/04/24 09:10 [facility] Past Medical History Medical History UTI (urinary tract infection) Chronic fatigue Left fibular fracture Membranous glomerulonephritis Neuropathy IBS (irritable bowel syndrome) Right hand pain Hypovitaminosis D Diabetes mellitus Mixed hyperlipidemia Essential hypertension GERD (gastroesophageal reflux disease) Family History Family History Father No problems noted. Mother Hypertension Maternal Grandmother Breast cancer Maternal Aunt Breast cancer Maternal Aunt Uterine cancer Maternal Uncle Diabetes Family/Other Breast cancer Surgical History Surgical History History of back surgery Hx of hysterectomy History of esophagogastroduodenoscopy (EGD) Hx of colonoscopy History of hysteroscopy Social History Social History Housing: Apartment Are you a primary career development engineer to a significant other at home: Yes (daughter, family will help post-op) Do you presently have visiting nurse or other home services: No Alcohol intake: current Alcohol intake frequency: holidays/special occasions only Alcohol type: hard liquor and other Patient Tobacco Use Status: Never used Tobacco e-Cigarette/Vaping Use: Never Used Second Hand Smoke Exposure: No Advance Directives Date on File: 12/10/19 service: No Current occupational status: employed Current occupational exposures/hazards: No Cognitive needs: No Hearing needs: No Vision needs: No Meds Allergies Allergy/AdvReac Type Severity Reaction Status Date / Time No Known Allergies Allergy Verified 05/21/24 07:26 [No Known Allergies*] Home Medications ?Medication ?Instructions ?Recorded ?Confirmed ?Last Taken ?Type triamcinolone acetonide 0.025 % 1 applic topical DAILY 01/28/20 05/31/24 Unknown History topical cream minoxidil 2.5 mg tablet 2.5 mg PO DAILY 03/05/24 05/31/24 Unknown History lisinopril 5 mg tablet 5 mg PO DAILY 05/31/24 05/31/24 Unknown History Exam Airway Mallampati Class: II TM Dist: >3cm Neck ROM: Full Loose/Missing/Broken Teeth: No Heart: RRR Other: CTA Assessment and Plan Assessment Anesthesia Assessment: Anesthesia Plan Discussed Final Anesthetic Review NPO: Yes ASA Class: II Final Preanesthetic Review: Meds/Allgs Chart Reviewed, Consent Obtained/Reviewed and Anes Risks/Benef Reviewed Patient Risk: Low Procedure Risk: Low Anesthetic Plan Anesthetic Plan: MAC: Disposition: Standard PACU
[2024-06-04 08:36] VITALS: BMI 25.5
[2024-06-04 08:38] VITALS: BP 115/86; PULSE 78; RESP 16; TEMP 36.5; O2SAT 99
--- NOTE | 2024-06-04 09:02 | MHC.SHP ---
Pre-Procedural Eval Section A - 24 Hr Update-Section A only Date of Service: 06/04/24 Section B - Complete if H&P > 30 days Chief Complaint: screening Details of Present Illness: see H&P no changes Relevant Family History (Specify if Yes): No Relevant Social History: None Present Medications: see Short Stay Collaborative assessment Medical History: No relevant PMH History of Previous Operations: No relevant previous surgery Allergies: Allergies Allergy/AdvReac Type Severity Reaction Status Date / Time No Known Allergies Allergy Verified 05/21/24 07:26 [No Known Allergies*] Review of Systems Sugical H&P ROS: Negative: Constitution, Cardiovascular, Respiratory, Neurological, Psychiatric, Hem-Onc, Allergic/Immunologic, Gastrointestinal, Genitourinary, Musculoskeletal, Integumentary, Endocrine and Eyes/Ears/Nose/Throat Exam Surgical H&P Exam: Normal: HEENT, Normal: Heart, Normal: Lungs, Normal: Extremities, Normal: Abdomen, Normal: Skin and Normal: Neurological Plan Diagnosis/Plan: Unchanged I have reviewed the history and physical and performed a pertinent physical examination on my patient. No changes have occurred unless specified. Time Spent With Patient Time: Total time managing care of this patient today ____ minutes.
[2024-06-04] MEDS: Lactated Ringers 1,000 ML 100 ML IVCONT (09:03)
[2024-06-04 09:04] LABS: Glucose, Whole Blood 89 mg/dL (60-115)
[2024-06-04 09:40] VITALS: BP 98/55; PULSE 80; RESP 12; TEMP 36.1; O2SAT 97
[2024-06-04 09:55] VITALS: BP 108/75; PULSE 67; RESP 16; O2SAT 99
--- NOTE | 2024-06-04 09:55 | OP_ITS ---
DATE OF SERVICE: 06/04/2024 SURGEON: Sanjiv Salguero MD INDICATIONS: Colon cancer screening and prior history of tubular adenomas. PREOPERATIVE DIAGNOSIS: POSTOPERATIVE DIAGNOSIS: PROCEDURE PERFORMED: Colonoscopy to the terminal ilium with biopsy. ESTIMATED BLOOD LOSS: COMPLICATIONS: ANESTHESIA: Monitored anesthesia care. ASSISTANTS: SPECIMENS: DESCRIPTION OF PROCEDURE: A history and physical was performed. The risks and benefits of the procedure were explained to the patient. Informed consent was obtained. The patient was placed in the left lateral decubitus position. A digital rectal exam was performed and was found to be normal. The Olympus pediatric video colonoscope was introduced into the rectum and advanced to the cecum. The cecum was identified by transillumination, palpation, and identification of ileocecal valve. Examination was performed. The scope was removed. She tolerated the procedure well and was returned to the recovery area in stable condition. FINDINGS: The terminal ileum was examined and appeared normal. The visualized colonic mucosa was normal. The quality of the prep was good. Abdominal wall pressure was used to assist in advancement of the scope. Two polyps were identified. These were removed with a biopsy forceps. Both measured less than 5 mm. These were located in the right colon and in the rectum. There was moderate diverticulosis involving the sigmoid. Retroflexed examination showed some internal hemorrhoids. IMPRESSION: Colon polyps. RECOMMENDATION: Follow up the biopsy results. MD GERSON Crespo/VERONICA / [id number]
== END 2024-06-04 10:49 | disposition home or self-care (01) ==
PROVIDERS: PCP Internal Medicine; Visit Provider Internal Medicine Gastroenterology
PROC: 0DJD8ZZ Inspection of Lower Intestinal Tract, Via Natural or Artificial Opening Endoscopic (ICD-10-PCS; CPT 45378; principal; 2024-06-04 09:50)
DX: Z12.11 Encounter for screening for malignant neoplasm of colon (principal); Z86.0101 Personal history of adenomatous and serrated colon polyps; D12.2 Benign neoplasm of ascending colon; K62.1 Rectal polyp; K57.30 Diverticulosis of large intestine without perforation or abscess without bleeding; K64.8 Other hemorrhoids; K58.2 Mixed irritable bowel syndrome; K21.9 Gastro-esophageal reflux disease without esophagitis; G62.9 Polyneuropathy, unspecified; I10 Essential (primary) hypertension; E11.9 Type 2 diabetes mellitus without complications; N05.2 Unspecified nephritic syndrome with diffuse membranous glomerulonephritis; M54.9 Dorsalgia, unspecified; Z79.84 Long term (current) use of oral hypoglycemic drugs; Z79.85 Long-term (current) use of injectable non-insulin antidiabetic drugs; Z79.899 Other long term (current) drug therapy; Z87.81 Personal history of (healed) traumatic fracture; Z98.890 Other specified postprocedural states
CPT/HCPCS: 45380; 82947; 88305; J2003; J2704

== ENCOUNTER 2024-06-06 07:28 | Outpatient (AMB) | payer OTHER, SELFPAY ==
--- OUTSIDE RECORDS SUMMARY | 2024-06-06 07:32 | XMS_ITS | Clinical Summary ---
Author Organization [facility] Facility Address [address] [place] [address] Care Team Providers Care Hoisting Machine Operator Name Role Phone Chloe Estrada MD Primary Care Provider [phone] Allergies No known active allergies Medications cholecalciferol [...] Exam 04/03/2020 Influenza Vaccine (#1) [address] [place] [place] [address] MEDICAID [facility] MEDICAID Care Teams Hoisting Machine Operator Relationship Specialty Start Date End Date Chloe Estrada MD [address] [place] [address] PCP - General 03/16/20
--- OUTSIDE RECORDS SUMMARY | 2024-06-06 07:32 | XMS_ITS ---
Author Organization [facility] Address [address] [place] [address] Care Team Providers Care Solar Manufacturer'S Representative Name Role Phone Chloe Estrada Primary Care Provider Unavailab Sanjiv Fink Jr Mando Tapia Unavailable Unavailable REASON FOR VISIT please update insurance Encounters Encounter Location Date Provider Diagnosis [facility] [address] [place] [phone] 03/13/2024 Sanjiv Salguero Jr Plan Of Treatment No Information Progress Notes * EMILY BARROWB:1970 (53 yo F)Acc No.[id number]:03/13/2024 Patient:?PRASHANT BARROW :1970???Age:53 Y???Sex:Female Address:[address] [place], [address] * true * Date:? Generated for Mei botello/Sal/eTransmitting on:?06/06/2024 07:32 AM EDT
--- OUTSIDE RECORDS SUMMARY | 2024-06-06 07:32 | XMS_ITS ---
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) Active confirmed Vital Signs Temperature 97.5 degrees Fahrenheit 04/24/19 25 Blood pressure systolic 001 mm Hg 04/24/19 25 Blood pressure diastolic 01 mm Hg 025 Height 68 in 04/24/2024 Weight 169.2 lbs 04/24/2024 BMI 25.72 kg/m2 04/24/2024 Encounters Encounter Location Date Provider Diagnosis [facility] [address] [place] [address] 04/24/2024 Sanjiv Salguero Jr Colon cancer screening [...] Appt Details Follow Up: 1 Year, Reason: Progress Notes * EMILY BARROWB:1970 (53 yo F)Acc No.[id number]:04/24/2024 Progress Notes Patient:?PRASHANT BARROW Provider:?Sanjiv Salguero MD :1970???Age:53 Y???Sex:Female D ate:04/24/2024 Address:[address] [place], [place] [id number] Pcp:Chloe Vargas Subjective: * Chief Complaints: * [...] Screen?Points: 1, Interpretation: Negative.?Miscellaneous:?Marital status: single. 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 * Medications:?Taking Pantopra zole Sodium [...] MCG (1999 UT) Tablet Oral , Discontinued [place]-3 Fish Oil 1000 MG Capsule Oral , [...] Provider:?Sanjiv Salguero MD Date:?0 04/24/2024 Generated for Cristoi rosmery/Sal/eTransmitting on:?06/06/2024 07:31 AM EDT History and Physical Notes * HPI [...]
--- OUTSIDE RECORDS SUMMARY | 2024-06-06 07:32 | XMS_ITS | Patient Health Record ---
Author Organization [facility] Address [address] [place] [address] Care Team Providers Care Block Greaser Name Role Phone Clhoe Estrada Primary Care Provider Unavailab Sanjiv Fink Jr Unavailable [phone] Mando Tapia Unavailable Unavailable Allergies No Known Allergies Results Component Value Reference Range Notes Glucose, Whole Blood Reviewed date:06/05/2024 04:33:54 PM Interpretation: Performing Lab:[facility], [address] [place] [phone] Notes/Report: Glucose, Whole Blood 89 60-115 mg/dL METER # : [id number] Pathology (Not yet reviewed by provider) Interpretation: Performing Lab:[facility], [address] [place] [phone] Notes/Report: ----- Name: Tequila Sweeney cia Age/Sex: 53/F : 1970 Unit#: [id number] Attend Dr: Sanjiv Salguero MD Re06/04/24 Status : [facility] Location: [facility] Disch: ----- SPEC : [id number] RECD : 06/04/24 STATUS: TAMMY MONCADA NUM: [id number] LUKAS: 06/04/24 [facility]: Sanjiv Salguero MD ENTERED: 06/04/24 30 SP TYPE: Surgical OTHR DR: Chloe Estrada MD ORDERED: HE Stain/6, Gross Micro L4/2 Diagnosis A. Colon, right, polypectomy: Tubular adenoma; negative for high-grade dysplasia or carcinoma. B. Rectum, polypecto my: Hyperplastic mucosal polyp. Clinical History Pre-Op Dx: Screening Post-Op Dx: Colon polyps Microscopic Description A, B. Microscopic sections reviewed. Material Received A. Right colon polyp B. Rectal polyp Gross Description Received in two parts. Part A: Received in formalin labeled ?right colon polyp? is a 0.3 cm cazares irregular tissue fragment, submitted in toto in a cassette labeled A. Part B: Received in formalin labeled ?rectal polyp? is a 0.3 cm cazares-pink irregular tissue fragment, submitted in toto in a cassette labeled B. CEDS Copies To: Sanjiv Salguero MD [address] [place], [place] [id number] Chloe Estrada MD [facility] Primary Care,[address] [place] [address] CONTINUED ON NEXT PAGE ----- Name: Tequila Sweeney cia Age/Sex: 53/F : 1970 Unit#: [id number] Attend Dr: Sanjiv Salguero MD Re06/04/24 Status : [facility] Location: [place] Disch: ----- SPEC : [id number] RECD : 06/04/24 STATUS: TAMMY MONCADA NUM: [id number] LUKAS: 06/04/24 [facility]: Sanjiv Salguero MD ENTERED: 06/04/24 SP TYPE: Surgical OTHR DR: Chloe Estrada MD ORDERED: VICENTA Stain/6, Zeinab Meyers L4/2 Copies To: (Continued) [phone] ----- Signed (signature on file) Daron Martinez MD 06/05/24 1537 ----- END OF REPORT Reason For Referral No Information Medications Medication [...] Problem Status W/U Status Risk Notes Problem 330019243 Colon cancer screening (Z12.11) Active confirmed Problem 921648387 Irritable bowel syndrome with diarrhea (K58.0) Active confirmed Problem 099840497 Screening for co bud cancer (Z12.11) Active confirmed Problem 775054209 Abnormal liver function tests (R79.89) Active confirmed Problem 71815623 Irritable bowel syndrome with both constipation and diarrhea (K58.2) Active confirmed Problem 075715436 Membranous glomerulonephritis, 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 confirmed Problem 556629328 Gastroesophageal reflux disease, unspecified whether esophagitis present (K21.9) Active confirmed Vital Signs Temperature 97.5 degrees Fahrenheit 04/24/2024 Blood pressure diastolic 01 mm Hg 04/24/2024 Height 68 in 04/24/2024 Blood pressure systolic 001 mm Hg 04/24/2024 Weight 169.2 lbs 04/24/2024 BMI 25.72 kg/m2 04/24/2024 Encounters Encounter Location Date Provider Diagnosis [facility] Outpatient [address] [place] [phone] 06/04/2024 Sanjiv [facility] [address] [place] [address] 04/24/2024 Sanjiv Salguero Jr Colon cancer screening Z12.11 ; Gastroesophageal reflux disease, unspecified whether esophagitis present K21.9 and Irritable bowel syndrome with both constipation and diarrhea K58.2 [facility] [address] [place] [address] 03/13/2024 Sanjiv Salguero Jr Assessments Encounter Date [...] days before the procedure. Plan Of Treatment Pending Test Test Name Order Date Pathology 06/04/2024 Future Test Test Name Order Date UPPER GI ENDOSCOPY 06/04/2014 COLONOSCOPY 08/03/2017 COLONOSCOPY 03/18/2021 COLONOSCOPY 04/24/2024 Insurance Providers Payer Name Payer Address Payer Phone Subscriber Number Group Number Insured Name Patient Relationship to Insured Coverage Start Date Coverage End Date [facility] [address] [address] [place], [place] [id number] PRASHANT KUMAR Self - patient is the insured Medical (General) History Medical History History ICD Code Colonoscopy 04/27, for tubular adenomas, five-year followup diabetes mellitus Neuropathy Left fibula fracture, 2020 Membranous glomerulonephritis Back pain Surgical History Surgery Date(Month/Year) back surgery 11/26 partial hysterectomy feb 21, 2017
--- OUTSIDE RECORDS SUMMARY | 2024-06-06 07:32 | XMS_ITS ---
Author Organization [facility] Address [address] [place] [address] Care Team Providers Care Imcu Specialist Name Role Phone Chloe Estrada Primary Care Provider Unavailab Sanjiv Fink Jr Mando Tapia Unavailable Unavailable REASON FOR VISIT screening Encounters Encounter Location Date Provider Diagnosis [facility] [address] [place] [phone] 06/04/2024 Sanjiv Salguero Jr Plan Of Treatment No Information Progress Notes * EMILY BARROWB:1970 (53 yo F)Acc No.[id number]:06/04/2024 COLON WITH MAC Patient:?PRASHANT BARROW Provider:?Sanjiv Salguero MD :1970???Age:53 Y???Sex:Female D ate:06/04/2024 Address:[address] [place] [address] Pcp:Chloe Vargas Subjective: * Chief Complaints: * ???1. Screening. * Medical History:? Objective: * Vitals:? Assessment: Plan: * Treatment: * * The named appointment provid er may or may not be the originator of this progress note, and it is not deemed complete until electronically signed by the appointment provider. Sign off status: Pending * Provider:?Sanjiv Salguero MD Date:?0 06/04/2024 Generated for Mei botello/Sal/eTransmitting on:?06/06/2024 07:32 AM EDT
--- NOTE | 2024-06-06 07:36 | A.OFFPC_ITS ---
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 Accompanied by: Self / Same As Patient Allergies No Known Allergies [No Known Allergies*] Allergy (Verified 06/06/24 07:41) Medication List - Last Reconciled 06/06/24 by Chloe Vargas MD atorvastatin 80 mg PO DAILY cholecalciferol (vitamin D3) 50 mcg PO DAILY 90 days empagliflozin (Jardiance) 10 mg PO DAILY 90 days fenofibrate 54 mg PO DAILY 90 days gabapentin 600 mg (2 x 300 mg) PO BID 30 days lisinopril 5 mg PO DAILY minoxidil 2.5 mg PO DAILY pantoprazole 40 mg PO DAILY 90 days semaglutide (Ozempic) 2 mg (0.75 mL) subcut QWEEK 4 weeks triamcinolone acetonide 0.025% 1 appl topical DAILY Tobacco use date assessed: 06/06/24 Dental Screening Dental Screen Date: 06/06/24 Did you have a dental visit in the last 12 months?: Yes Did you have a dental problem in the last 6 months where you did not have access to dental care?: No Was dental information given to patient?: Patient has dentist HPI HPI Comments History of Present Illness Details The patient is a 53-year-old female presenting for a wellness examination. During a recent colonoscopy, she was diagnosed with a tubular adenoma and a hyperplastic polyp, with a follow-up planned in three years. She is current with her pneumonia vaccination as of last year. Her tetanus vaccination is overdue, and she has not received one in the past ten years. Her metabolic labs revealed controlled diabetes mellitus with an A1c of 5.8% and cholesterol levels indicating good management of hyperlipidemia. Despite mild fatty liver indicated by elevated liver enzymes, no specific symptoms were noted. There is microalbuminuria present, prompting plans for repeat testing in four months. The patient had a back surgery in 2022 and a hysterectomy in 2016. She reports taking multiple medications for chronic conditions, including atorvastatin for hyperlipidemia, Jardiance, and Ozempic for diabetes, and fenofibrate for triglycerides. Her family history includes maternal hypertension. She experiences mild depression but opts against pharmacological treatment, particularly to aid sleep. - Colonoscopy performed with findings of tubular adenoma and hyperplastic polyp; follow-up in three years. - Pneumonia vaccine received last year; next dose due in four years. - Tetanus vaccine overdue; discuss leroy velazquez a nurse visit. - Mammogram needed as per recommendation due to date in 2022. - Blood work shows A1c of 5.8%, controll ed cholesterol with LDL of 72 mg/dL, and vitamin D is normal. - Blood sugar level at 133 mg/dL. - Repeat microalbumin test planned in fo ur months. [facility] Medical History UTI (urinary tract infection) Chronic fatigue Left fibular fracture Membranous glomerulonephritis Neuropathy IBS (irritable bowel syndrome) Right hand pain Hypovitaminosis D Diabetes mellitus Mixed hyperlipidemia Essential hypertension GERD (gastroesophageal reflux disease) Surgical History History of back surgery Hx of hysterectomy History of esophagogastroduodenoscopy (EGD) Hx of colonoscopy History of hysteroscopy Family History Father No problems noted. 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: Yes (daughter, family will help post-op) Do you presently have visiting nurse or other home services: No Alcohol intake: current Alcohol intake frequency: holidays/special occasions only Alcohol type: hard liquor and other Patient Tobacco Use Status: Never used Tobacco e-Cigarette/Vaping Use: Never Used Second Hand Smoke Exposure: No Advance Directives Date on File: 12/10/19 service: No Current occupational status: employed Current occupational exposures/hazards: No Cognitive needs: No Hearing needs: No Vision needs: No Questionnaire PHQ-9 Over the last 2 weeks, how often have you been bothered by any of the following problems? 1. Little interest or pleasure in doing things: not at all 2. Feeling down, depressed, or hopeless: not at all 3. Trouble falling or staying asleep, or sleeping too much: nearly every day 4. Feeling tired or having little energy: several days 5. Poor appetite or overeating: not at all 6. Feeling bad about yourself - or that you are a failure or have let yourself or your family down: not at all 7. Trouble concentrating on things, such as reading the newspaper or watching television: not at all 8. Moving or speaking so slowly that other people could have noticed. Or the opposite - being so fidgety or restless that you have been moving around a lot more than usual: not at all 9. Thoughts that you would be better off or of hurting yourself in some way: not at all Total score: 4 Depression Screening Interpretation: Positive Depression Screening Follow-up: Existing condition and Follow-up Visit Requested Depression Screening Done: Yes 73571 - PHQ-9 Billing: Yes Source: Developed by Drs. Philip Crouch, Annel Hinton, Gerry Jeter and colleagues, with an educational tone from [employer]. Thrive Questionnaire Date Thrive assessed: 06/06/24 I am a: Patient What is your living situation today?: I have a steady place to live Within the past 12 months, did the food you bought not last and you didn't have the money to get more?: Never true Within the past 12 months, did you worry whether your food would run out before you got money to buy more?: Never true Do you have trouble paying for medicines?: No Do you have trouble getting transportation to medical appointments?: No Do you have trouble paying your heating and electricity bill?: No Do you have trouble taking care of your child, family member or friend?: No Do you have trouble with day-to-day activities such as bathing, preparing meals, shopping, managing finances, etc.?: No Are you currently unemployed and looking for a job?: No Are you interested in more education?: No Please select the resources that you would like help with: None Currently or been in a relationship where the following occur: No concerns reported THRIVE Score: 0 AUDIT C Alcohol Use Questionnaire (AUDIT-C) 1. How often do you have a drink containing alcohol?: Monthly or less 2. How many drinks containing alcohol do you have on a typical day when you are drinking?: 1 or 2 3. How often do you have six or more drinks on one occasion?: Never Total Score: 1 Score Reviewed/Action Taken: No LANCE-7 AMB Questionnaire LANCE-7 Date LANCE - 7 assessed: 06/06/24 Feeling nervous, anxious, or on edge: 0 = Not at all Not being able to stop or control worryin = Not at all Worrying too much about different things: 0 = Not at all Trouble relaxin = Not at all Being so restless that it is hard to sit still: 0 = Not at all Becoming easily annoyed or irritable: 0 = Not at all Feeling afraid as if something awful might happen: 0 = Not at all Total LANCE-7 score (0-4 normal; 5-9 mild; 10-14 moderate; 15-21 severe): 0 Source: Developed by Drs. Philip Crouch, Annel Hinton, Gerry Jeter and colleagues, with an educational tone from [employer]. LANCE-7 Assessment Billing LANCE-7 Assessment Tool: LANCE-7 Assessment 15521 Review of Systems Const All systems reviewed & are unremarkable except as noted in HPI and below Card Denies chest pain at rest, Denies chest pain with activity, Denies edema, Denies irregular heart rhythm, Denies claudication, Denies dyspnea, Denies dyspnea on exertion, Denies orthopnea, Denies paroxysmal nocturnal dyspnea and Denies slow heart rate Resp Denies cough, Denies dyspnea and Denies dyspnea on exertion GI Denies abdominal pain, Denies change in bowel habits, Denies excessive flatus, Denies nausea and Denies vomiting Denies urinary incontinence, Denies urinary hesitancy and Denies urinary urgency Musc Denies abnormal gait, Denies atrophy, Denies deformity and Denies limited range of motion Skin/Breast Denies bleeding lesions, Denies changing lesions and Denies rash Neuro Denies abnormal gait and Denies lack of coordination Physical exam (Primary Care) Vital Signs: Last Vital Signs BP 124/82 06/06/24 07:38 BMI result Body Mass Index 24.9 Tobacco/Smoking Status: Tobacco use Status Tobacco use date assessed 06/06/24 06/06/24 07:43 Patient Tobacco Use Status Never used Tobacco 06/06/24 07:43 e-Cigarette/Vaping Use Never Used 06/06/24 07:43 PHQ-9: PHQ-9 Score PHQ-9: Total score 4 06/06/24 07:50 Depression Screening Interpretation: Positive Depression Screening Follow-up: Existing condition and Follow-up Visit Requested Thrive Assessment: Date of Thrive Assessment Date Thrive assessed 06/06/24 06/06/24 07:43 Currently or been in a relationship where the following occur: No concerns reported HENMT Head: Yes normal to inspection, Yes normocephalic and Yes atraumatic Ears: external ears normal Neck Neck: Yes normal visual inspection and Yes supple Resp Effort & Inspection: normal respiratory effort Auscultation: clear to auscultation bilaterally Cardio Jugular venous distension: no JVD Rate: regular rate Rhythm: regular rhythm Heart sounds: S1 normal heart sound present and S2 normal heart sound present GI Inspection: Yes normal to inspection Palpation (GI): Soft to palpation and nontender Auscultation: normal bowel sounds Skin General skin exam: no rashes or lesions noted Neuro General: no focal motor deficits Extrem General: Yes full ROM Psych Appearance: grossly normal Results AMB Hemoglobin A1c AMB Hemoglobin A1c 5.8 % Last Edit by FERNANDO Reza on 06/06/24 07:4 5 Results Reviewed Results Reviewed: Laboratory Last Values Hgb A1c (Clinic) 5.8 % (4.0-6.0) 06/06/24 07:35 Coding Level of Care Code Est Pt Prev Care 40-64y(06614) Diagnoses Physical exam Z00.00 Type 2 diabetes mellitus with hyperglycemia, without long-term current use of insulin E11.65 Diabetes mellitus type: type 2 Diabetes mellitus terminologist insulin use: without terminologist use Diabetes mellitus complication status: with hyperglycemia Additional Codes LANCE-7 Assessment Billing - LANCE-7 Assessment Tool: LANCE-7 Assessment 29181 ([id number]) PHQ-9 - 13918 - PHQ-9 Billing: Yes ([id number]) Time Spent (min) 30 Assessment & Plan Assessment & Plan (1) Physical exam: Code(s): Z00.00 - Encounter for general adult medical examination without abnormal findings Category: Medical (2) Diabetes mellitus: Code(s): E11.9 - Type 2 diabetes mellitus without complications Category: Medical Qualifiers: Diabetes mellitus type: type 2 Diabetes mellitus mcc insulin use: without terminologist use Diabetes mellitus complication status: with hyperglycemia Qualified Code(s): E11.65 - Type 2 diabetes mellitus with hyperglycemia Plan Elevated liver enzymes indicating fatty liver will be monitored, with microalbumin retesting scheduled in four months to guide nephrological evaluations if necessary. A Tdap vaccine needs to be administered, and a mammogram scheduled to provide clarity on her screening status. While the patient experiences mild depression, she opts against medical sleep aids. Continuing with minoxidil for hair improvement remains sufficient according to her report.: Patient was informed and verbally consented to the use of an ambient scribe for clinic note documentation during this visit. I have instructed the patient to schedule a follow-up colonoscopy in three years due to findings of a tubular adenoma and hyperplastic polyp. Current diabetes management will proceed with her existing regimen, reinforced by her recent A1c. I explained the importance of monitoring her liver and kidney status, which involves retesting liver functions and microalbumin levels in four months. She was made aware of the overdue tetanus vaccine and the need for a mammogram to clarify her screening record. Discussions also detailed options for managing her mild depression and fatigue, acknowledging her choice to avoid medication rel iance. I emphasized the positive response to minoxidil for her hair thinning and encouraged continued use. Orders: Orders Lipid Panel 4 Months E78.5 - Hyperlipidemia, unspecified Microalbumin, Random (w Creat) 4 Months R80.9 - Proteinuria, unspecified AMB Hemoglobin A1c Today E11.65 - Type 2 diabetes mellitus with hyperglycemia MM tomosynthesis screening BI Today Z12.31 - Encounter for screening mammogram for malignant neoplasm of breast Vitamin D 25-OH Total 4 Months E55.9 - Vitamin D deficiency, unspecified Comprehensive [place]. Panel Fast 4 Months E11.65 - Type 2 diabetes mellitus with hyperglycemia Medications: Changed From lisinopril 5 mg PO DAILY To lisinopril 5 mg PO DAILY 90 tabs 1RF 90 days Refilled empagliflozin (Jardiance) 10 mg PO DAILY 90 tabs 1RF 90 days E11.65 - Type 2 diabetes mellitus with hyperglycemia cholecalciferol (vitamin D3) 50 mcg PO DAILY 90 tabs 3RF 90 days atorvastatin 80 mg PO DAILY 90 tabs 1RF pantoprazole 40 mg PO DAILY 90 tabs 1RF 90 days fenofibrate 54 mg PO DAILY 90 tabs 1RF 90 days gabapentin 600 mg (2 x 300 mg) PO BID 120 caps 2RF 30 days semaglutide (Ozempic) 2 mg (0.75 mL) subcut QWEEK 3 mL 6RF 4 weeks Patient Instructions: - Schedule colonoscopy in three years. - Continue current diabetes medications; inquire about refills. - Expect microalbumin retesting in four months. - Arrange Tdap vaccination with nurse. - Schedule a mammogram if not done. - Maintain diet and exercise for liver health. - Avoid using sleep medication; explore non-pharmacological approaches for fatigue. - Follow current treatment for hair thinning with minoxidil. - Follow up as advised for future testing and evaluations.
[2024-06-06 07:38] VITALS: BP 124/82; BMI 24.9
== END 2024-06-06 08:03 | disposition home or self-care (01) ==
LOC: HO.HMCH 07:29
PROVIDERS: PCP Internal Medicine; Visit Provider Internal Medicine
DX: Z00.00 Encounter for general adult medical examination without abnormal findings (principal); E11.65 Type 2 diabetes mellitus with hyperglycemia

== ENCOUNTER → 2024-06-06 07:28 | Outpatient (BNVA) | payer OTHER, SELFPAY | PROVIDERS: PCP Internal Medicine; Visit Provider Internal Medicine | DX: Z00.00 Encounter for general adult medical examination without abnormal findings (principal); M51.360 Other intervertebral disc degeneration, lumbar region with discogenic back pain only; M25.511 Pain in right shoulder; E11.65 Type 2 diabetes mellitus with hyperglycemia; E78.5 Hyperlipidemia, unspecified; R80.9 Proteinuria, unspecified; E55.9 Vitamin D deficiency, unspecified; Z86.0100 Personal history of colon polyps, unspecified; Z98.890 Other specified postprocedural states | CPT/HCPCS: 83036; 96127; 99212; 99396 ==

== ENCOUNTER 2024-06-06 09:48 | Outpatient (AMB) | payer OTHER, SELFPAY ==
[2024-06-06 09:52] VITALS: BP 170/79; PULSE 92; O2SAT 100; BMI 25.4
--- NOTE | 2024-06-06 09:52 | MHC.OFFVIS ---
Vital Signs 06/06/24 09:52 Height 5 ft 8 in Weight 167 lb 4 oz BMI 25.4 BP 170/79 H Blood Pressure Location Lt brachial Position Sitting Pulse 92 Pulse Source Pulse Oximeter Pulse Oximetry (%) 100 Oxygen Delivery Method Room Air Intake Visit Reasons: RIGHT INTRA-ARTIC HIP INJ/ Intracept discussion Allergies No Known Allergies [No Known Allergies*] Allergy (Verified 06/06/24 09:54) HPI Comments Details: The patient is a 53-year-old female presenting with follow-up evaluation for hip and back pain. She received an intra-articular steroid injection (Kenalog 40 mg) in her right hip on 05/21/[address] Mc. Post-injection, she reports ongoing soreness in the hip, with a pain level of 3/10 and about 70% relief. There's intermittent right groin pain decreased since the injection but new-onset right knee and ankle discomfort have been noted. Her past history of discogenic back pain impacts her significantly, worsening with forward bending or certain activities. 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 She also suffers from axial low back pain and had previous left L5-S1 microdiscectomy in [address] Fajardo. We reviewed Intracept (L5-S1 BVN ablataion) for discogenic low back pain today. Patient declined further minimally invasive management for back issues at this time. She reports successful weight loss with Ozempic injections and plan to stop taking most medications as her DM has been under control and she achieving her weight loss goals and has been feeling better. Denies any recent cough, cold, infection, fever or any other significant changes in medical history since last office visit. - Pain onset: Chronic back pain, right hip pain, flare up in right knee and right ankle pain. - Quality and Character: Daily back pain and right hip pain - Location: Right hip, radiating down the right leg; knee and ankle pain. - Exacerbating Factors: Physical activity, work-related activities in daycare. - Alleviating Factors: Gabapentin provided partial relief, hip injection provided some relief. - Interference: Daily life, particularly impacting physically demanding work. - Affect: Pain impacting work and daily activities; psychological well-being affected by chronic pain. - Analgesia: Right hip steroid injection; current pain level 3/10 in hip. Daily gabapentin 600 mg BID. - Adverse Effects: No notable adverse effects from pain management mentioned. - Activities of Daily Living: Pain limits daycare worker duties, mobility affected. - Aberrant Drug Related Behaviors: None reported, no misuse noted. Past Procedures: 05/21/24: Right hip intra-articular steroid injection with fluoroscopy-70% ongoing pain relief PRIOR: Patient presents today for follow-up to review recent lumbar spine MRI results. Patient continues to endorse significant right-sided low back with radiation into her right hip and right groin. Patient reports right hip and groin pain is more severe than low back. She denies any significant pain on the left side, except chronic neuropathy. Her pain is minimal at rest or sitting which she currently rates at 2/10. Pain increases with daily activities and walking and intensifies at 6-8/10 by the evening. Patient has completed PT and continues home exercise program with continued pain and decreased functioning. Hip xray showed mild arthritis. Denies any recent cough, cold, infection, fever, bladder or bowel dysfunction, saddle anesthesia, or any significant changes in medical history since last office visit. PRIOR: Patient is a pleasant 53 years old female with history of chronic low back pain, left L5-S1 microdiskectomy Dr. Fajardo 11/24/22, diabetes (A1C=5.8), h/o upper and lower end of right fibula 2020, peripheral neuropathy, chronic fatigue, presents today for initial evaluation right hip pain. Denies any recent trauma, injury or falls. Recent right hip xray showed mild arthritis. 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 Reports increasing right pain with weight bearing, changing positions from sitting to standing, prolonged walking or sitting or sleeping on her right side. She also reports chronic left leg pain associated with burning, tingling, and numbness. Patient reports back surgery significantly relieved low back and left leg pain but residual neuropathy has been bothersome. Patient takes gabapentin prescribed by PCP with partial benefit. She avoids NSAIDs unless she has severe headache. To this point, she has not tried dedicated physical therapy, chiropractic therapy, cortisone injections or massage therapy. Denies any fever, chills, abdominal or groin pain, weakness, foot drop, bladder or bowel dysfunction or saddle anesthesia. Location: Right hip, chronic left leg pain-neuropathy Duration: 1 month + Characteristics of symptom or complaint: Aching, stabbing, shooting, LLE-numbness and tingling Aggravating or associated factors: Movement, walking, weight bearing, cleaning, right side sleeping, ROM Relieving factors: Rest, sitting, gabapentin, heat therapy Treatment: None PFSH Medical History UTI (urinary tract infection) Chronic fatigue Left fibular fracture Membranous glomerulonephritis Neuropathy IBS (irritable bowel syndrome) Right hand pain Hypovitaminosis D Diabetes mellitus Mixed hyperlipidemia Essential hypertension GERD (gastroesophageal reflux disease) Surgical History History of back surgery Hx of hysterectomy History of esophagogastroduodenoscopy (EGD) Hx of colonoscopy History of hysteroscopy Family History Father No problems noted. Mother Hypertension Maternal Grandmother Breast cancer Maternal Aunt Breast cancer Maternal Aunt Uterine cancer Maternal Uncle Diabetes Family/Other Breast cancer Social History Housing: Apartment Are you a primary home health care case manager to a significant other at home: Yes (daughter, family will help post-op) Do you presently have visiting nurse or other home services: No Alcohol intake: current Alcohol intake frequency: holidays/special occasions only Alcohol type: hard liquor and other Patient Tobacco Use Status: Never used Tobacco e-Cigarette/Vaping Use: Never Used Second Hand Smoke Exposure: No Advance Directives Date on File: 12/10/19 service: No Current occupational status: employed Current occupational exposures/hazards: No Cognitive needs: No Hearing needs: No Vision needs: No Review of Systems Const Details: - Musculoskeletal: Reports ongoing minimal right hip soreness, denies daily groin pain since injection; chronic low back pain, right knee and ankle pain. - Neurological: Reports chronic numbness, tingling in feet. Denies bladder or bowel dysfunction or saddle anesthesia. - Other: Denies recent injury, trauma or falls. All systems reviewed & are unremarkable except as noted in HPI and below Physical Exam Vital Signs: Last Vital Signs Pulse 92 06/06/24 09:52 BP 170/79 H 06/06/24 09:52 Pulse Ox 100 06/06/24 09:52 Oxygen Delivery Method Room Air 06/06/24 09:52 BMI result Body Mass Index 25.4 General: Appears afebrile. No acute distress. Alert and oriented. Mood and affect appropriate. Follows and participates in conversation appropriately. Respiratory effort is unlabored. No cough. Able to transition from sit to stand unassisted. Ambulates with bilaterally normal heel strike and toe off. General: Yes no CVA tenderness Back/Spine/Pelvis Other: Limited lumbar ROM due to pain. Normal gait, no limping. Lumbar extension and flexion forward reproduce mild to moderate pain. Demonstrates 5/5 strength of quadriceps bilaterally as well as flexion/dorsiflexion of bilateral feet against resistance. 2+ pedal pulses bilaterally. Straight leg rise with dorsiflexion is negative bilaterally. +1 patellar and +1 achilles reflexes bilaterally. Facet loading test is positive bilaterally. Minimal right groin pain with I/E hip rotations. Mild TTP to right GTB. Valsalva maneuver is negative. Back: no CVA tenderness Cervical Spine: cervical ROM normal, cervical muscular tenderness and No Cervical spine tenderness Thoracic/Lumbar Spine: thoracic and lumbar spine normal to inspection, Thoracic/lumbar spine scar(s), Lasegue's sign negative, straight leg raise negative bilaterally, pain with thoraco-lumbar ROM, paraspinal muscle tenderness, thoraco-lumbar ROM limited, No thoracic spinal tenderness and lumbar spinal tenderness (L4-S1) Pelvis: buttock tenderness on the right Sacroiliac joints: bilaterally nontender Extrem General: Yes capillary refill normal, Yes no clubbing, cyanosis or edema and Yes no calf tenderness Results AMB Hemoglobin A1c AMB Hemoglobin A1c 5.8 % Last Edit by FERNANDO Reza on 06/06/24 07:45 Results Reviewed Results Reviewed: XR HIP, RIGHT 10/30/23 CLINICAL INFORMATION: Right hip pain. COMPARISON: Pelvic radiograph dated 06/27/2022. FINDINGS: No acute fracture or dislocation. No significant joint space narrowing. Tiny lateral acetabular marginal osteophytes. No osseous erosion. No evidence of femoral head avascular necrosis. No abnormal soft tissue calcification. IMPRESSION: Minimal right hip arthrosis. NERVE CONDUCTION STUDY 12/15/23 FINDINGS: Left peroneal nerve showed prolonged distal latency, normal amplitude and slow conduction velocity at fibular neck. All other nerves tested were within normal. Concentric needle EMG was performed in selected muscles of the bilateral lower extremity. Study did not reveal signs of electric abnormalities as shown in the table above. IMPRESSION: 1. This is an abnormal study. 2. There is electrodiagnostic evidence for left peroneal neuropathy at the fibular neck. 3. There is no electrodiagnostic evidence for tibial neuropathy. lumbosacral plexopathy, lumbar radiculopathy, or peripheral neuropathy. 3. No electrodiagnostic evidence for right peroneal neuropathy. MR LUMBAR SPINE WITHOUT AND WITH CONTRAST 02/25/24 CLINICAL INFORMATION: Radiculopathy, lumbar region COMPARISON: MR lumbar spine on 08/03/2022 TECHNIQUE: MRI of the lumbar spine was obtained using routine sequences with and without contrast. Intravenous contrast: Gadavist 7.5 mL FINDINGS: Patchy edema and enhancement involving the opposing L5-S1 endplates compatible with reactive endplate changes. No other sites of acute bone marrow abnormality or suspicious enhancement. The vertebral body heights are preserved. Multilevel disc desiccation with moderate disc height loss at L5-S1. The visualized spinal cord is normal in caliber. No abnormal cord signal or enhancement. The conus medullaris terminates at L1. T12-L1: No significant spinal canal or neural foraminal narrowing. L1-2: No significant spinal canal or neural foraminal narrowing. L2-3: Diffuse disc bulge and bilateral facet arthrosis. No significant spinal canal or neural foraminal narrowing. L3-4: Diffuse disc bulge and bilateral facet arthrosis. Patchy edema and enhancement surrounding the right L3-4 is likely degenerative. No significant spinal canal or neural foraminal narrowing. L4-5: Shallow disc bulge and bilateral facet arthrosis. No significant spinal canal or neural foraminal narrowing. L5-S1: Sequelae of right hemilaminectomy. Central disc protrusion, unchanged. Bilateral facet arthrosis. There is a 0.7 cm T2 hyperintense focus with T2 hypointense rim with associated hypoenhancement in within the left lateral recess which is new from prior. Persistent impingement of the transiting S1 nerve roots bilaterally, left greater than right. Mild spinal canal stenosis, unchanged. No significant neural foraminal narrowing. The paravertebral soft tissues are unremarkable. IMPRESSION: Postsurgical changes at L5-S1. There is a new 0.7 cm T2 hyperintense focus with T2 hypointense rim and associated hypoenhancement within the left lateral recess. This could represent a new intracanalicular synovial cyst versus disc material. Unchanged central disc protrusion causing mild spinal canal stenosis with persistent impingement of the transiting S1 nerve roots bilaterally Assessment & Plan Assessment & Plan (1) Lumbar degenerative disc disease: Code(s): M51.36 - Other intervertebral disc degeneration, lumbar region Category: Medical (2) History of back surgery: Comment: spinal surgery 11/24/2022 Code(s): Z98.890 - Other specified postprocedural states Category: Surgical (3) Right hip pain: Code(s): M25.551 - Pain in right hip Category: Medical Plan We reviewed the patient's current and past interventions for hip and back pain, concentrating on the ongoing and prior management through injections and previous back surgery. Future follow-up measures were deliberated for possible repeated hip injections, contingent on symptom re-emergence, targeting concerns of arthritis and somewhat effective past treatment. We discussed L5-S1 BVN ablation (Intracept) for persistent back discomfort with flexing forward or bending with daily impact on her functioning, mobility and work. Pursuant to her wishes, no further back interventions are planned, with an emphasis on her ongoing comprehensive pain management needs. All questions and concerns have been answered and patient agreed with the plan. Follow up as needed. Patient was informed and verbally consented to the use of an ambient scribe for clinic note documentation during this visit. Coding Level of Care Code Est Pt Level 3 (79392) Complex EM visit Add On G2211 Diagnoses Lumbar degenerative disc disease M51.36 History of back surgery Z98.890 Right hip pain M25.551
--- OUTSIDE RECORDS SUMMARY | 2024-06-06 10:20 | XMS_ITS | Clinical Summary ---
Author Organization [facility] Facility Address [address] [place] [id number] Care Team Providers Care Orthotic And Prosthetic Technician Name Role Phone Chloe Estrada MD Primary Care Provider [phone] Allergies No known active allergies Medications cholecalciferol [...] Exam 04/03/2020 Influenza Vaccine (#1) [address] [place] [address] MEDICAID [facility] MEDICAID Care Teams Orthotic And Prosthetic Technician Relationship Specialty Start Date End Date Chloe Estrada MD [address] [place] [address] PCP - General 03/16/20
== END 2024-06-06 10:12 | disposition home or self-care (01) ==
LOC: HO.PMC 09:49
PROVIDERS: PCP Internal Medicine; Visit Provider Nurse Practitioner Family
DX: M51.369 Other intervertebral disc degeneration, lumbar region without mention of lumbar back pain or lower extremity pain (principal); Z98.890 Other specified postprocedural states; M25.551 Pain in right hip
CPT/HCPCS: 99213; G2211

== ENCOUNTER 2024-10-02 06:10 | Outpatient (REF) | payer OTHER, SELFPAY ==
--- OUTSIDE RECORDS SUMMARY | 2024-10-02 06:13 | XMS_ITS | Clinical Summary ---
Author Organization [facility] Facility Address [address] [place] [id number] Care Team Providers Care School Guidance Counselor Name Role Phone Chloe Estrada MD Primary Care Provider [phone] Allergies No known active allergies Medications cholecalciferol [...] Last Done Comments Breast Cancer Screening 1970 Hepatitis B Vaccine (1 of 3 - 19+ 3-dose series) 06/15 Pneumococcal Vaccine: 50+ Years (1 of 2 - PCV) 990 Colorectal Cancer Screening: Annual FOBT 06/16/2019 Colorectal Cancer Screening: Colonoscopy 06/16/2019 Colorectal Cancer Screening: Sigmoidoscopy 06/16/2019 Diabetes: Hemoglobin A1C 04/03/2020 Diabetes: Ophthalmology Exam 04/03/2020 Diabetes: Pedal Pulse Checked 04/03/2020 Diabetes: Sensory Foot Exam 04/03/2020 Diabetes: Visual Foot Exam 04/03/2020 Influenza Vaccine (#1) 2024 Insurance Medicaid [facility] Medicaid Care Teams School Guidance Counselor Relationship Specialty Start Date End Date Chloe Estrada MD [address] [place], [place] PCP - General 03/16/20
[2024-10-02 07:30] LABS: Alanine Aminotransferase 33 U/L (0-31); Albumin Level 4.6 g/dL (3.5-5.0); Alkaline Phosphatase 99 U/L (39-117); Anion Gap 11 (12-20); Aspartate Amino Transferase 30 U/L (5-31); Blood Urea Nitrogen 20 mg/dL (9-16); Calcium 9.5 mg/dL (8.4-10.2); Carbon Dioxide 25 mmol/L (22-29); Chloride 108 mmol/L (96-108); Cholesterol 132 mg/dL (<200); Estimated Glomerular Filt Rate > 60; HDL Cholesterol 41 mg/dL (>40); Potassium 4.0 mmol/L (3.3-5.1); Sodium 140 mmol/L (135-145); Total Protein 7.6 g/dL (6.5-8.0); Triglycerides 125 mg/dL (<150)
[2024-10-02 07:31] LABS: Microalbum/Creatinine Ratio Ur 8.3 ug/mg cr (<30)
[2024-10-02 08:03] LABS: Appearance Urine Clear; Glucose Urine UA >=1000 mg/dL (Negative); PH 6.0 (5.0-9.0); Specific Gravity - Urine 1.025 (1.005-1.025); UMIC TRIGGER UACC YES
== END 2024-10-02 06:11 | disposition home or self-care (01) ==
LOC: HO.LAB 06:10
PROVIDERS: PCP Internal Medicine; Visit Provider Internal Medicine
DX: E11.65 Type 2 diabetes mellitus with hyperglycemia (principal); R30.0 Dysuria; E55.9 Vitamin D deficiency, unspecified; E78.5 Hyperlipidemia, unspecified; R80.9 Proteinuria, unspecified
CPT/HCPCS: 36415; 80053; 80061; 81001; 81003; 82043; 82306; 82570

== ENCOUNTER 2024-10-21 14:44 | Outpatient (REF) | payer OTHER, SELFPAY ==
--- NOTE | ~2024-10-21 | MM_ITS ---
EXAMINATION: MM SCREENING DIGITAL BREAST TOMOSYNTHESIS, BILATERAL CLINICAL INFORMATION: Screening. Asymptomatic. COMPARISON: Mammography: Comparison is made with available priors TECHNIQUE: Digital breast mammography with tomosynthesis is performed in both the craniocaudal and mediolateral oblique views along with computer-aided detection (CAD). FINDINGS: There are scattered areas of fibroglandular density (ACR BI-RADS breast composition Category b). There are no significant masses, abnormal calcifications, or other abnormalities. MM/MM tomosynthesis screening BI IMPRESSION: No mammographic evidence of malignancy. ASSESSMENT: BI-RADS BI-RADS 1 - Negative RECOMMENDATION: Routine annual mammography screening. 1 year F/U This examination should not preclude the clinical evaluation of a suspicious palpable abnormality. This patient's information was entered into a reminder system with a target due date for their next mammogram. Electronically signed by: Genevieve Clark DO 10/23/2024 12:51 PM EDT
--- OUTSIDE RECORDS SUMMARY | 2024-10-21 15:26 | XMS_ITS | Clinical Summary ---
Author Organization [facility] Address [address] [address] Phone Care Team Providers Care Rehabilitation Worker Name Role Phone Pcp, Not Required Primary Care Provider Unavaila ble Social History Tobacco Use Types Packs/Day Years Used Date Smoking Tobacco: Never Assessed Education Answer Date Recorded Are you interested in more education? Not on gerry e 07/01/2022 Are you concerned about learning? Not on file 07/01/2022 No 07/01/2022 No 07/01/2022 Digital Access Answer Date Recorded No 07/30/2022 No 07/30/2022 No 07/30/2022 Reliable internet access at home? Not on file 07/30/2022 Device with a working camera? Not on file Comments Unknown Sex and Gender Information Value Date Recorded Sex Assigned at Not on file Legal Sex Female 2:09 PM EST Gender Identity Not on file Sexual Orientation Not on file Plan of Treatment Health Maintenance Due Date Last Done Comments Adult Td,Tdap Booster 1970 LIPID PANEL 1970 DEPRESSION SCREENING 1982 SMOKING Hx and SMOKELESS TOBACCO SCREENING 06/16/1983 HEPATITIS C SCREENING 1988 HIV ONE-TIME SCREENING (18-6 5 YEARS) 1988 PAP SMEAR 06/16/1991 MAMMOGRAM 2010 COLOGUARD 06/16/2015 COLONOSCOPY 06/16/2015 COLORECTAL CANCER SCREENING 06/16/2015 FIT TEST 06/16/2015 FOBT 06/16/2015 SIGMOIDOSCOPY 06/16/2015 VIRTUAL COLONOSCOPY 06/16/2015 PNEUMOCOCCAL VACCINES (50+ years) (1 of 1 - PCV) 2020 ZOSTER VACCINES (1 of 2) 2020 COVID-19 VACCINE (2023-2 5 season) 2023 06/09/2020, 05/18/2020 HEPATITIS A VACCINES Aged Out No long er eligible based on patient's age to complete this topic HIB VACCINES Aged Out No longer eligi ble based on patient's age to complete this topic MENINGOCOCCAL VACCINES (ACWY) Aged Out No longer eligible based on patient's age to complete this topic MENINGOCOCCAL VACCINES (B) Aged Out N o longer eligible based on patient's age to complete this topic Medical Devices Not on file Insurance [facility] Care Teams Rehabilitation Worker Relationship Specialty Start Date End Date Pcp, Not Required [address] [place] [id number] PCP - General 04/12/17 Additional Source Comments The information contained in this document represents components of the legal health record. It is not the complete legal health record.[facility]
--- OUTSIDE RECORDS SUMMARY | 2024-10-21 15:26 | XMS_ITS | Clinical Summary ---
Author Organization [facility] Facility Address [address] [place] [address] Care Team Providers Care Hall Manager Name Role Phone Chloe Estrada MD Primary Care Provider [phone] Allergies No known active allergies Medications cholecalciferol [...] 04/03/2020 Influenza Vaccine (#1) 2024 Insurance Medicaid [facility] Medicaid Care Teams Hall Manager Relationship Specialty Start Date End Date Chloe Estrada MD [address] [place], [place] PCP - General 03/16/20
== END 2024-10-21 14:45 | disposition home or self-care (01) ==
LOC: HO.MAMMO 14:44
PROVIDERS: PCP Internal Medicine; Visit Provider Internal Medicine
DX: Z12.31 Encounter for screening mammogram for malignant neoplasm of breast (principal)
CPT/HCPCS: 77063; 77067

== ENCOUNTER → 2024-10-21 16:30 | Outpatient (BNV) | payer OTHER, SELFPAY | PROVIDERS: PCP Internal Medicine; Visit Provider Internal Medicine | DX: Z12.31 Encounter for screening mammogram for malignant neoplasm of breast (principal) | CPT/HCPCS: 77063; 77067 ==

== ENCOUNTER 2024-12-11 08:35 | Outpatient (AMB) | payer OTHER, SELFPAY ==
--- NOTE | 2024-12-11 08:37 | MHC.OFFVIS ---
Intake Visit Reasons: 6m f/u Allergies No Known Allergies (No Known Allergies*) Allergy (Verified 12/11/24 08:44) Medication List - Last Reconciled 12/11/24 by Monika Gonzalez CNP atorvastatin 80 mg PO DAILY cholecalciferol (vitamin D3) 50 mcg PO DAILY 90 days empagliflozin (Jardiance) 10 mg PO DAILY 90 days fenofibrate 54 mg PO DAILY 90 days gabapentin 600 mg (2 x 300 mg) PO BID 30 days lisinopril 5 mg PO DAILY 90 days minoxidil 2.5 mg PO DAILY pantoprazole 40 mg PO DAILY 90 days semaglutide (Ozempic) 2 mg (0.75 mL) subcut QWEEK 4 weeks triamcinolone acetonide 0.025% 1 appl topical DAILY HPI Comments Details: Having some more pain and cramping in legs at night. More numbness to feet, L > R, and feet feel cold. Having some R shoulder and upper arm soreness. Intermittent R hand numbness, worse over last few months and may wake with it, but has been happening for few years. Feels she is losing strength. No falls. Blood sugar has been okay. Starting to get more pain in R hip again with increased activity which had improved after injection in 05/2024 with pain management. Ongoing soreness to low back. On 06/21/2022, she got up from rocking chair and developed severe left sciatic pain, had a left paracentral L5-S1 disc herniation pressing on S1 root, pain has improved since discectomy on 11/24/[address] Fajardo. Hx of DM2 since 2016, numbness/tingling in toes and thumbs with some numbness that started in 2019. Hx of chronic headaches since age 18, going from back of neck to right side to occipital area with some lightheadedness, lasting 30 minutes to 1 day. No triggers. Ibuprofen stopped because of kidney disease. [facility] Medical History UTI (urinary tract infection) Chronic fatigue Left fibular fracture Membranous glomerulonephritis Neuropathy IBS (irritable bowel syndrome) Right hand pain Hypovitaminosis D Diabetes mellitus Mixed hyperlipidemia Essential hypertension GERD (gastroesophageal reflux disease) Surgical History History of back surgery Hx of hysterectomy History of esophagogastroduodenoscopy (EGD) Hx of colonoscopy History of hysteroscopy Family History Father No problems noted. Mother Hypertension Maternal Grandmother Breast cancer Maternal Aunt Breast cancer Maternal Aunt Uterine cancer Maternal Uncle Diabetes Family/Other Breast cancer Social History Housing: Apartment Are you a primary med care manager to a significant other at home: Yes (daughter, family will help post-op) Do you presently have visiting nurse or other home services: No Alcohol intake: current Alcohol intake frequency: holidays/special occasions only Alcohol type: hard liquor and other Patient Tobacco Use Status: Never used Tobacco e-Cigarette/Vaping Use: Never Used Second Hand Smoke Exposure: No Advance Directives Date on File: 12/10/19 service: No Current occupational status: employed Current occupational exposures/hazards: No Cognitive needs: No Hearing needs: No Vision needs: No Review of Systems Const Denies chills, Denies daytime sleepiness, Reports difficulty sleeping, Denies fatigue, Denies fever(s), Denies frequent falls, Reports headache(s), Denies increased appetite, Denies poor appetite, Denies snoring, Denies weakness, Denies weight gain and Denies weight loss Eyes Denies loss of vision ENT Denies vertigo, Denies dizziness, Reports headache(s) and Reports neck pain Card Denies chest pain at rest, Denies chest pain with activity, Denies syncope, Denies leg edema, Denies palpitations, Denies dyspnea and Denies dyspnea on exertion Resp Denies cough, Denies dyspnea, Denies dyspnea on exertion and Denies snoring GI Denies abdominal pain, Denies constipation, Denies heartburn, Denies diarrhea and Denies nausea Denies urinary frequency, Denies urinary incontinence and Denies urinary urgency Musc Denies abnormal gait, Reports back pain, Reports myalgias, Reports arthralgias, Reports neck pain, Reports numbness and Reports tingling Neuro Denies abnormal gait, Denies vertigo, Denies dizziness, Denies syncope, Denies frequent falls, Reports headache(s), Denies lack of coordination, Denies loss of vision, Denies memory loss, Reports numbness, Denies Other visual disturbances, Denies restless legs, Denies seizure-like activity, Reports tingling, Denies paresthesias, Denies tremor(s) and Denies weakness Psych Reports anxiety, Denies depression, Denies auditory hallucinations, Denies memory loss and Denies visual hallucinations Endo Denies fatigue and Denies palpitations Physical Exam Const Other: General Appearance:? normal, in no acute distress. Heart:? S1, S2 normal, no murmurs. Lungs:? clear anteriorly and posteriorly. Musculoskeletal:? normal. Extremities:? no edema. Psych:? alert, oriented, cognitive function intact, cooperative with exam. Neuro Other: Abnormal Neurological Findings:?absent AJ. Distal blunting of pin prick in toes. Slight give in left calf on toe walking? Mental Status: alert and oriented X 3. Normal attention, orientation, memory, and affect. Cranial Nerves: Pupils are equal, round, and reactive to light. External ocular muscles are intact. Visual benjamin are full, no ptosis. Face is symmetrical, no facial weakness or droop. Facial sensations are normal. Tongue protrudes in midline. Palate elevates symmetrically. Shoulder shrugging is normal Motor Examination: As above. Sensory Exam: As above, otherwise normal light touch, temperature, pinprick, vibration, and joint-position sensations. Rhomberg sign is absent. Coordination: No ataxia. No titubation. Gait Exam: Within normal limits. Cerebellar Signs: [id number] is okay. Extrapyramidal System: No tremor, rigidity with normal facial expressions. No bradykinesia. No bradyphrenia. Normal arm swing and posture. No propulsion or retropulsion. Speech: Normal. Results Reviewed Results Reviewed: 06/06/2024 A1c: 5.8 02/2024 LS spine MRI: Postsurgical changes at L5-S1. There is a new 0.7 cm T2 hyperintense focus with T2 hypointense rim and associated hypoenhancement within the left lateral recess. This could represent a new intracanalicular synovial cyst versus disc material. Unchanged central disc protrusion causing mild spinal canal stenosis with persistent impingement of the transiting S1 nerve roots bilaterally 08/03/22 MRI shows large L5-S1 left paracentral disc herniation with S1 root compression. NCV/EMG UE 08/20/19 Normal motor and sensory nerve conduction velocities in the upper extremities. Normal EMG in the right C5-T1 innervated muscles. 04/2019 [facility] [place] NCV LE: MZK : Neuropathy Assessment & Plan Assessment & Plan (1) Diabetic polyneuropathy: Code(s): E11.42 - Type 2 diabetes mellitus with diabetic polyneuropathy Category: Medical Qualifiers: Diabetes mellitus type: type 2 Qualified Code(s): E11.42 - Type 2 diabetes mellitus with diabetic polyneuropathy Plan: Continue gabapentin 300mg 2 capsules twice a day. NCV/EMG UE ordered. Orders: Orders NE electromyogram (EMG) Today E11.42 - Type 2 diabetes mellitus with diabetic polyneuropathy NE nerve conduction velocity Today E11.42 - Type 2 diabetes mellitus with diabetic polyneuropathy Coding Level of Care Code Est Pt Level 4 (54604) Diagnoses Diabetic polyneuropathy associated with type 2 diabetes mellitus E11.42 Diabetes mellitus type: type 2
== END 2024-12-11 09:02 | disposition home or self-care (01) ==
LOC: HO.HSM 08:35
PROVIDERS: PCP Internal Medicine; Referring Provider Internal Medicine; Visit Provider Registered Nurse
DX: E11.42 Type 2 diabetes mellitus with diabetic polyneuropathy (principal)
CPT/HCPCS: 99214

== ENCOUNTER → 2024-12-11 08:35 | Outpatient (BNVA) | payer OTHER, SELFPAY | PROVIDERS: PCP Internal Medicine; Referring Provider Internal Medicine; Visit Provider Registered Nurse | DX: E11.42 Type 2 diabetes mellitus with diabetic polyneuropathy (principal); Z79.899 Other long term (current) drug therapy; Z79.84 Long term (current) use of oral hypoglycemic drugs | CPT/HCPCS: 99212 ==

== ENCOUNTER 2025-01-01 10:49 | Outpatient (REF) | payer OTHER, SELFPAY ==
--- OUTSIDE RECORDS SUMMARY | 2025-01-01 13:35 | XMS_ITS | Clinical Summary ---
Author Organization [facility] Address [address] [place] [address] Care Team Providers Care Bowling Alley Attendant Name Role Phone Chloe Vargas MD Primary Care Provider Lluvia valdez Allergies No known active allergies Medications Medication Sig Dispensed Refills Start Date End Date Status metformin (GLUCOPHAGE) 1000 MG tablet Take 1,000 mg by mouth 2 times daily (with meals). 0 Active pantoprazole (PROTONIX) 40 MG tablet Take 40 mg by mouth daily. 0 Active lisinopril (PRINIVIL,ZESTRIL) 5 MG tablet Take 5 mg by mouth daily. 0 Active Alpha-Lipoic Acid 600 MG Cap Take by mouth. 0 Active clobetasol (TEMOVATE) 0.05 % external solution Apply QOday to scalp 50 mL 2 10/13/2016 Active betamethasone dipropionate (DIPROLENE) 0.05 % ointment Apply small amount BID x 2 weeks 60 g 0 10/13/2016 Active calcipotriene (DOVONOX) 0.005 % cream Apply to affected area BID 60 g 0 05/28/2019 Active atorvastatin (LIPITOR) 80 MG tablet Take 80 mg by mouth daily. 0 08/16/2019 Active Cholecalciferol (VITAMIN D) 2000 units Tab Take 1 Tab by mouth daily. 0 08/15/2019 Active Fenofibrate 145 MG Tab TAKE 1 TABLET BY MOUTH EVERY DAY WITH FOOD 0 08/16/2019 Active [place]-3 Fatty Acids (FISH OIL) 1000 MG Cap TAKE 1 CAPSULE DAILY 0 06/17/2019 Acti ve pioglitazone (ACTOS) 45 MG tablet Take 45 mg by mouth daily. 0 08/16/2019 Active triamcinolone (KENALOG) 0.025 % cream Apply to affected area daily. Patient to mix entire jar of Triamcinolone with entire jar of CeraVe cream and apply daily. 454 g 1 08/29/2019 Active tacrolimus (PROTOPIC) 0.1 % ointment Apply to affected area BID 30 g 1 08/29/2019 Active triamcinolone (KENALOG) 0.025 % cream Apply to affected area daily. Patient to mix entire jar of Triamcinolone with entire jar of CeraVe cream and apply daily. 454 g 1 05/19/2020 Active Active Problems Problem Noted Date Diabetes mellitus 10/13/2016 GERD (gastroesophageal reflux disease) 0 10/13/2016 Social History Tobacco Use Types Packs/Day Years Used Date Smoking Tobacco: Never Assessed Sex Assigned at Date Recorded Not on file Last Filed Vital Signs Vital Sign Reading Time Taken Comments Blood Pressure 136/80 08/29/2019 4:09 PM EDT Pulse 88 11/16/2016 3:31 PM EDT Temperature 35.7 C (96.3 F) 08/29/2019 4:09 PM EDT Respiratory Rate - - Oxygen Saturation - - Inhaled Oxygen Concentration - - Weight 83.9 kg (185 lb) 08/29/2019 4:09 PM EDT Height - - Body Mass Index - - Plan of Treatment Health Maintenance Due Date Last Done Comments Covid-19 Vaccine (#1) 1970 DIABETES/HEART DISEASE: ANNUAL CHOLESTEROL (LDL) 06/15 DIABETES: ANNUAL EYE EXAM 1988 DIABETES: ANNUAL FOOT EXAM 1988 DIABETES: ANNUAL URINE PROTEIN TEST (MICROALBUMIN) 02/1989 DIABETES: BLOOD SUGAR CONTROL TEST (HGBA1C) 1988 TOBACCO CHECK/ADVISE 1988 DTAP/TDAP/TD (1 - Tdap) 1989 PNEUMOCOCCAL VACCINE FOR HIGH RISK PATIENTS (#1) 06/15 CERVICAL CANCER SCREENING 06/16/1991 BASELINE HEALTH EXAM 40-64 2010 MAMMOGRAM 2010 COLON CANCER SCREENING 2020 SHINGLES VACCINE (1 of 2) 2020 BMI CHECK/ADVISE 03/06/2024 DEPRESSION SCREENING/FOLLOWUP 03/06/2024 SOCIAL NEEDS SCREENING 03/06/2024 INFLUENZA (#1) 2024 Care Teams Bowling Alley Attendant Relationship Specialty Start Date End Date Chloe Vargas MD PCP - General Internal Medicine 12/23/13
--- OUTSIDE RECORDS SUMMARY | 2025-01-01 13:35 | XMS_ITS | Clinical Summary ---
Author Organization [facility] Facility Address [address] [place] [id number] Care Team Providers Care Commercial Real Estate Attorney Name Role Phone Chloe Estrada MD Primary [...] 04/03/2020 Influenza Vaccine (#1) 2024 Insurance Medicaid [facility] Medicaid Care Teams Commercial Real Estate Attorney Relationship Specialty Start Date End Date Chloe Estrada MD [address] [place], [place] PCP - General 03/16/20
--- OUTSIDE RECORDS SUMMARY | 2025-01-01 13:35 | XMS_ITS | Clinical Summary ---
Author Organization [facility] Address [address] [place] [phone] Phone Care Team Providers Care Television News Video Editor Name Role Phone Pcp, Not Required Primary [...] 2020 ZOSTER VACCINES (1 of 2) 2020 INFLUENZA VACCINE (#1) 2024 , 12/25/2018, 11/15/2016 COVID-19 VACCINE (3 - 2024-2 6 season) 2024 06/09/2020, 05/18/2020 RSV VACCINE (1 - 1-dose 75+ series) 2045 HEPATITIS A VACCINES Aged Out No long [...] topic Medical Devices Not on file Insurance [facility] [place] [address] [facility] Care Teams Television News Video Editor Relationship Specialty Start Date End Date Pcp, Not Required [address] [place] [id number] PCP - General 04/12/17 Additional Source Comments The information contained in this document represents components of the legal health record. It is not the complete legal health record.[facility]
--- NOTE | 2025-01-01 15:39 | EMG_ITS ---
Chief complaint:?E11.42 Type 2 diabetes mellitus with diaebetic polyneuropathy Reason for referral: Diabetic polyneuropathy Referred by:?Monika MARINO Procedure done: Bilateral upper extremities NCS/EMG Impression: Normal motor and sensory nerve conduction velocities in the upper extremities. Normal EMG of the right C5-T1 innervated muscles. Please see detailed neurophysiological report Coding: ? [id number] 1 extremity MTDD
== END 2025-01-01 10:50 | disposition home or self-care (01) ==
LOC: HO.NEURO 10:49
PROVIDERS: PCP Internal Medicine; Visit Provider Registered Nurse
DX: E11.42 Type 2 diabetes mellitus with diabetic polyneuropathy (principal)
CPT/HCPCS: 95885; 95913

== ENCOUNTER → 2025-01-01 15:39 | Outpatient (BNV) | payer OTHER, SELFPAY | PROVIDERS: PCP Internal Medicine; Visit Provider Psychiatry & Neurology Neurology | DX: E11.42 Type 2 diabetes mellitus with diabetic polyneuropathy (principal) | CPT/HCPCS: 95885; 95913 ==

== ENCOUNTER 2025-01-22 14:57 | Outpatient (AMB) | payer OTHER, SELFPAY ==
--- OUTSIDE RECORDS SUMMARY | 2024-06-04 04:50 | XMS_ITS ---
Author Organization [facility] Address [address] [place] [address] Care Team Providers Care Activities Leader Name Role Phone Chloe Estrada Primary Care Provider Unavailab Sanjiv Fink Jr Unavailable [phone] Mando Tapia Unavailable Unavailable REASON FOR VISIT screening Encounters Encounter Location Date Provider Diagnosis [facility] Outpatient [address] [place] [phone] 06/04/2024 Sanjiv Salguero Jr Colon cancer screening Z12.11 ; Personal history of adenomatous and serrated colon polyps Z86.0101 and Colon polyps K63.5 Assessments Encounter Date Diagnosis (ICD Code) Assessment Notes Treatment Notes Treatment Clinical Notes Section Notes 06/04/2024 Colon cancer screening (ICD-10 - Z12.11) 06/04/2024 Personal history of adenomatous and serrated colon polyps (ICD-10 - Z86.0101) 06/04/2024 Colon polyps (ICD-10 - K63.5) Plan Of Treatment No Information Progress Notes * SNOW BARROW:1970 (54 yo F)Acc No.[id number]:06/04/2024 COLON WITH MAC Patient: Nena PRASHANT RIDDLE Provider: Ritchie Salguero MD :1970 A ge:53 Y S ex:Female Date:06/04/2024 Address:[address] [place], [place] [phone] Pcp:Chloe Vargas Subjective: * Chief Complaints: * S creening Assessment: * Assessment: 1. C olon cancer screening - Z12.11 (Primary) 2 . P ersonal history of adenomatous and serrated colon polyps - Z86.0101 3 . C olon polyps - K63.5 ? Plan: * Procedure Codes: 4 5380 COLONOSCOPY AND BIOPSY * Preventive Medicine: BEVERLY Screening: C olonoscopy W as interval between colonoscopies three years or more? Y es, W as last colonoscopy performed three or more years ago? Y es, T en year follow-up for colonoscopy recommended? N o, R svitlana: M edical Reason, A denoma or other neoplasm detected during screening colonoscopy: Y es. Billing Information: * Procedure Codes: 89562 COLONOSCOPY AND BIOPSY. * The named appointment provid er may or may not be the originator of this progress note, and it is not deemed complete until electronically signed by the appointment provider. Sign off status: Pending * Provider: Ritchie Salguero MD Date: 0 06/04/2024 Generated for Mei botello/Sal/Zebitting on: 03/25/2024 03:30 AM EST
--- NOTE | 2025-01-22 15:01 | A.OFFPC_ITS ---
Vital Signs 01/22/25 15:03 Height 5 ft 8 in Weight 175 lb 6 oz BMI 26.7 BP 116/70 Blood Pressure Location Lt brachial Position Sitting Respiration 18 Pulse 100 Pulse Source Pulse Oximeter Temp 97.1 F Temp Source Temporal Artery Scan Pulse Oximetry (%) 97 Oxygen Delivery Method Room Air Intake Visit Reasons: DM Intake Note: DM Manual Arts Therapist Required: No Accompanied by: Self / Same As Patient Allergies No Known Allergies (No Known Allergies*) Allergy (Verified 01/22/25 15:16) Medication List - Last Reconciled 01/22/25 by Chloe Vargas MD atorvastatin 80 mg PO DAILY cholecalciferol (vitamin D3) 50 mcg PO DAILY 90 days empagliflozin (Jardiance) 10 mg PO DAILY 90 days fenofibrate 54 mg PO DAILY 90 days gabapentin 600 mg (2 x 300 mg) PO BID 30 days lisinopril 5 mg PO DAILY 90 days minoxidil 2.5 mg PO DAILY pantoprazole 40 mg PO DAILY 90 days semaglutide (Ozempic) 2 mg (0.75 mL) subcut QWEEK 4 weeks triamcinolone acetonide 0.025% 1 appl topical DAILY Tobacco use date assessed: 06/06/24 Dental Screening Dental Screen Date: 06/06/24 HPI HPI Comments History of Present Illness Details The patient is a 54-year-old female presenting for medication management and evaluation of new-onset symptoms in her right arm and hand. She reports debilitating pain in her right arm and hand, describing it as soreness and numbness that makes it difficult to squeeze objects and causes her to drop things. A nerve conduction study five years ago was negative for carpal tunnel syndrome and neuropathy. The patient reports being on Ozempic 2 mg, which is working well. She has not been taking Jardiance due to insurance approval issues. She has diabetes mellitus type 2 well control with an A1c less than 7% which is the goal. She also has hypertension which is within goal being less than 130/80. Also has hyperlipidemia with an LDL goal less than 70. I will discontinue fenofibrate because her triglycerides have always been less than 500. The patient is taking minoxidil 2.5 mg for hair loss and has noticed some hair regrowth, though she also reports unwanted hair growth elsewhere. Her medication regimen also includes lisinopril 5 mg and pantoprazole. She reports experiencing significant somnolence from a medication prescribed by her neurologist, which caused her to fall asleep at work. Past medical history is notable for uterine fibroids. [facility] Medical History (Updated 01/22/25 @ 16:37 by Chloe Vargas MD) UTI (urinary tract infection) Chronic fatigue Left fibular fracture Membranous glomerulonephritis Neuropathy IBS (irritable bowel syndrome) Right hand pain Hypovitaminosis D Diabetes mellitus Mixed hyperlipidemia Essential hypertension GERD (gastroesophageal reflux disease) Surgical History History of back surgery Hx of hysterectomy History of esophagogastroduodenoscopy (EGD) Hx of colonoscopy History of hysteroscopy Family History Father No problems noted. Mother Hypertension Maternal Grandmother Breast cancer Maternal Aunt Breast cancer Maternal Aunt Uterine cancer Maternal Uncle Diabetes Family/Other Breast cancer Social History Housing: Apartment Are you a primary life care planner to a significant other at home: Yes (daughter, family will help post-op) Do you presently have visiting nurse or other home services: No Alcohol intake: current Alcohol intake frequency: holidays/special occasions only Alcohol type: hard liquor and other Patient Tobacco Use Status: Never used Tobacco e-Cigarette/Vaping Use: Never Used Second Hand Smoke Exposure: No Use of substances other than those prescribed or required for medical reasons: No Advance Directives Date on File: 12/10/19 service: No Current occupational status: employed Current occupational exposures/hazards: No Cognitive needs: No Hearing needs: No Vision needs: No Questionnaire Thrive Questionnaire Date Thrive assessed: 06/06/24 I am a: Patient What is your living situation today?: I have a steady place to live Within the past 12 months, did the food you bought not last and you didn't have the money to get more?: Never true Within the past 12 months, did you worry whether your food would run out before you got money to buy more?: Never true Do you have trouble paying for medicines?: No Do you have trouble getting transportation to medical appointments?: No Do you have trouble paying your heating and electricity bill?: No Do you have trouble taking care of your child, family member or friend?: No Do you have trouble with day-to-day activities such as bathing, preparing meals, shopping, managing finances, etc.?: No Are you currently unemployed and looking for a job?: No Are you interested in more education?: No Please select the resources that you would like help with: None Currently or been in a relationship where the following occur: No concerns reported THRIVE Score: 0 LANCE-7 AMB Questionnaire LANCE-7 Date LANCE - 7 assessed: 06/06/24 Source: Developed by Drs. Philip Crouch, Annel Hinton, Gerry Jeter and colleagues, with an educational tone from [employer]. Review of Systems Const All systems reviewed & are unremarkable except as noted in HPI and below Card Denies chest pain at rest, Denies chest pain with activity, Denies edema, Denies irregular heart rhythm, Denies claudication, Denies dyspnea, Denies dyspnea on exertion, Denies orthopnea, Denies paroxysmal nocturnal dyspnea and Denies slow heart rate Resp Denies cough, Denies dyspnea and Denies dyspnea on exertion Physical exam (Primary Care) Vital Signs: Last Vital Signs Temp 97.1 F 01/22/25 15:03 Pulse 100 01/22/25 15:03 Resp 18 01/22/25 15:03 BP 116/70 01/22/25 15:03 Pulse Ox 97 01/22/25 15:03 Oxygen Delivery Method Room Air 01/22/25 15:03 BMI result Body Mass Index 26.7 Tobacco/Smoking Status: Tobacco use Status Tobacco use date assessed 06/06/24 01/22/25 15:02 Patient Tobacco Use Status Never used Tobacco 01/22/25 15:07 e-Cigarette/Vaping Use Never Used 01/22/25 15:07 Thrive Assessment: Date of Thrive Assessment Date Thrive assessed 06/06/24 01/22/25 15:02 Currently or been in a relationship where the following occur: No concerns reported Resp Effort & Inspection: normal respiratory effort Auscultation: clear to auscultation bilaterally Cardio Jugular venous distension: no JVD Rate: regular rate Rhythm: regular rhythm Heart sounds: S1 normal heart sound present and S2 normal heart sound present Extrem General: Yes full ROM Results AMB Hemoglobin A1c AMB Hemoglobin A1c 6.2 % Last Edit by Barney Aden CMA on 01/22/25 15:26 Results Reviewed Results Reviewed: Laboratory Last Values Hgb A1c (Clinic) 6.2 % (4.0-6.0) H 01/22/25 15:25 Coding Level of Care Code Est Pt Level 4 (88365) Complex EM visit Add On G2211 Diagnoses Type 2 diabetes mellitus with hyperglycemia, without long-term current use of insulin E11.65 Diabetes mellitus type: type 2 Diabetes mellitus correction insulin use: without longwall shearer operator use Diabetes mellitus complication status: with hyperglycemia Essential hypertension I10 Mixed hyperlipidemia E78.2 Right hand paresthesia R20.2 Hair loss L65.9 Time Spent (min) 23 Assessment & Plan Assessment & Plan (1) Diabetes mellitus: Code(s): E11.9 - Type 2 diabetes mellitus without complications Category: Medical Qualifiers: Diabetes mellitus type: type 2 Diabetes mellitus correction insulin use: without correction use Diabetes mellitus complication status: with hyperglycemia Qualified Code(s): E11.65 - Type 2 diabetes mellitus with hyperglycemia (2) Essential hypertension: Code(s): I10 - Essential (primary) hypertension Category: Medical (3) Mixed hyperlipidemia: Code(s): E78.2 - Mixed hyperlipidemia Category: Medical (4) Right hand paresthesia: Code(s): R20.2 - Paresthesia of skin Category: Medical (5) Hair loss: Code(s): L65.9 - Nonscarring hair loss, unspecified Category: Medical Plan Plan 1. Pain in right arm M79.601 The patient's symptoms of right arm and hand pain, numbness, and weakness are of unclear etiology, with differential diagnoses including a hand-specific issue or cervical radiculopathy. The patient will be referred to an orthopedist to first evaluate for a hand-related cause. If the orthopedic evaluation is unrevealing, the neck will be considered as the next potential source of the symptoms. The patient was also advised to contact her back doctor. 2. Type 2 diabetes mellitus without complications E11. HCC 19 The patient's diabetes is well-managed on Ozempic 2 mg. Jardiance will be discontinued as it is not needed and has not been approved by insurance. 3. Nonscarring hair loss, unspecified L65.9 The patient will continue taking minoxidil 2.5mg for hair loss, as she has noted some beneficial regrowth despite the side effect of excess hair growth elsewhere. 4. essential hypertension BP goal is equal or less than 130/80. 5. Mixed hyperlipidemia E78.2 Discontinue fenofibrate. Continue statin. LDL goal is less than 70. Orders: Orders Lipid Panel 5 Months E78.5 - Hyperlipidemia, unspecified Vitamin D 25-OH Total 5 Months E55.9 - Vitamin D deficiency, unspecified AMB Hemoglobin A1c Today E11.65 - Type 2 diabetes mellitus with hyperglycemia Microalbumin, Random (w Creat) 5 Months R80.9 - Proteinuria, unspecified Comprehensive [place]. Panel Fast 5 Months E11.65 - Type 2 diabetes mellitus with hyperglycemia Referrals Orthopedics Referral R20.2 - Paresthesia of skin Medications: Discontinued empagliflozin (Jardiance) Discontinued Reason: Patient Completed Course 10 mg PO DAILY 90 days 90 tabs 1RF E11.65 - Type 2 diabetes mellitus with hyperglycemia fenofibrate Discontinued Reason: Patient Completed Course 54 mg PO DAILY 90 days 90 tabs 1RF
[2025-01-22 15:03] VITALS: BP 116/70; PULSE 100; RESP 18; TEMP 36.2; O2SAT 97; BMI 26.7
--- OUTSIDE RECORDS SUMMARY | 2025-01-23 03:31 | XMS_ITS | Patient Health Record ---
Author Organization [facility] Address [address] [place] [address] Care Team Providers Care Prop And Scenery Maker Name Role Phone Chloe Estrada Primary Care Provider Unavailab Sanjiv Fink Jr Unavailable Mando Tapia Unavailable Unavailable Allergies No Known Allergies Results Component Value Reference Range Flag Notes Glucose, Whole Blood Reviewed date:06/05/2024 04:33:54 PM Interpretation: Performing Lab:[facility], [address] [place] [phone] Notes/Report: Glucose, Whole Blood 89 60-115 mg/dL N [facility] #: [id number] Pathology Reviewed date:06/13/2024 08:43:55 AM Interpretation: Performing Lab:[facility], [address] [place] [phone] Notes/Report: Reason For Referral No Information Medications Medication SIG (Take, Route, Frequency, Duration) Notes Start Date End Date Status Minoxidil 2.5 MG Tablet TAKE 1 TABLET DA TACHO FOR HAIR LOSS. Oral; Duration: 90 Days Active Atorvastatin Calcium 20 MG Tablet TAKE 1 TABLET BY MOUTH EVERY DAY Oral; Duration: 30 Active Pantoprazole Sodium 40 MG Tablet Delayed Release 1 tablet Orally Once a day; Duration: 30 day(s) 09/19/2014 Active Ozempic (2 MG/DOSE) 8 MG/3ML Solution Pen-injector INJECT 2 MG (0.75 ML) SUBCUTANEOUSLY EVERY WEEK FOR 4 WEEKS Subcutaneous; Duration: 28 Days Active Lisinopril 10 MG Tablet TAKE 1 TABLET BY MOUTH EVERY DAY Oral; Duration: 30 Active Jardiance 10 MG Tablet TAKE 1 TABLET (10 MG) ORALLY DAILY FOR 90 DAYS Oral; Duration: 90 Days Active Triamcinolone Acetonide 0.025 % Cream External; Duration: 30 Acti ve MiraLax (colon prep) 17 GM/SCOOP Powder mixed with Gatorade or Crystal Light Orally begin at 5:00 p.m. 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 Problems Problem Type SNOMED Code ICD Code Onset Dates Problem Status W/U Status Risk Notes Problem Colon cancer screening (435480569) Colon cancer screening (Z12.11) Active confirmed Problem Irritable bowel syndrome with diarrhea (407260510) Irritable bowel syndrome with diarrhea (K58.0) Active confirmed Problem Screening for colon cancer (221712595) Screening for colon cancer (Z12.11) Active confirmed Problem Liver function tests abnormal (393095713) Abnormal liver function tests (R79.89) Active confirmed Problem Irritable bowel syndrome (97729433) Irritable bowel syndrome with both constipation and diarrhea (K58.2) Active confirmed Problem Membranous glomerulonephritis (67929227) Membranous glomerulonephritis , 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 confirmed Problem Gastroesophageal reflux disease (813887156) Gastroesophageal reflux disease, unspecified whether esophagitis present (K21.9) Active confirmed Vital Signs Temperature 97.5 degrees Fahrenheit 04/24/2024 Blood pressure diastolic 01 mm Hg 04/24/2024 Height 68 in 04/24/2024 Blood pressure systolic 001 mm Hg 04/24/2024 Weight 169.2 lbs 04/24/2024 BMI 25.72 kg/m2 04/24/2024 Encounters Encounter Location Date Provider Diagnosis [facility] [address] [place] [phone] 06/04/2024 Sanjiv Salguero Jr Colon cancer screening Z12.11 ; Personal history of adenomatous and serrated colon polyps Z86.0101 and Colon polyps K63.5 [facility] [address] [place] [address] 04/24/2024 Sanjiv Salguero Jr Colon cancer screening Z12.11 ; Gastroesophageal reflux disease, unspecified whether esophagitis present K21.9 and Irritable bowel syndrome with both constipation and diarrhea K58.2 [facility] [address] [place] [address] 03/13/2024 Sanjiv Salguero Jr [facility] [address] [place] [address] 04/24/2024 Sanjiv Salguero Jr [facility] [address] [place] [phone] 06/13/2024 Sanjiv Salguero Jr Assessments Encounter Date Diagnosis (ICD Code) Assessment Notes Treatment Notes Treatment Clinical Notes Section Notes 06/04/2024 Colon cancer screening (ICD-10 - Z12.11) 06/04/2024 Personal history of adenomatous and serrated colon polyps (ICD-10 - Z86.0101) 04/24/2024 Colon cancer screening (ICD-10 - Z12.11) [...] and Jardiance 3 days before the procedure. 06/04/2024 Colon polyps (ICD-10 - K63.5) Plan Of Treatment Future Test Test Name Order Date UPPER GI ENDOSCOPY 06/04/2014 COLONOSCOPY 08/03/2017 COLONOSCOPY 03/18/2021 COLONOSCOPY 04/24/2024 Insurance Providers Payer Name Payer Address Payer Phone Subscriber Number Group Number Insured Name Patient Relationship to Insured Coverage Start Date [facility]age End [facility] [address] [address] [place], [place] [id number] PRASHANT KUMAR Self - patient is the insured Medical (General) History Medical History History ICD Code Colonoscopy 04/27, for tubular adenomas, five-year followup diabetes mellitus Neuropathy Left fibula fracture, 2020 Membranous glomerulonephritis Back pain Surgical History Surgery Date(Month/Year) partial hysterectomy feb 21, 2017 back surgery 11/26
--- OUTSIDE RECORDS SUMMARY | 2025-01-23 03:31 | XMS_ITS | Clinical Summary ---
Author Organization [facility] Address [address] [place] [id number] Care Team Providers Care Port Cdl A Driver Name Role Phone Chloe Estrada MD Primary Care Provider [phone] Allergies No known active allergies Medications cholecalciferol [...] 04/03/2020 Influenza Vaccine (#1) 2024 Insurance Medicaid [facility] Medicaid Care Teams Port Cdl A Driver Relationship Specialty Start Date End Date Chloe Estrada MD [address] [place], [place] PCP - General 03/16/20
--- OUTSIDE RECORDS SUMMARY | 2025-01-23 03:31 | XMS_ITS | Clinical Summary ---
Author Organization [facility] Address [address] [address] Phone Care Team Providers Care Charging Plug Placer Name Role Phone Pcp, Not Required Primary [...] topic Medical Devices Not on file Insurance [facility] [place] [address] [facility] Care Teams Charging Plug Placer Relationship Specialty Start Date End Date Pcp, Not Required [address] [place] [id number] PCP - General 04/12/17 Additional Source Comments The information contained in this document represents components of the legal health record. It is not the complete legal health record.[facility]
== END 2025-01-22 15:29 | disposition home or self-care (01) ==
LOC: HO.HMCH 14:57
PROVIDERS: PCP Internal Medicine; Visit Provider Internal Medicine
DX: E11.65 Type 2 diabetes mellitus with hyperglycemia (principal); I10 Essential (primary) hypertension; E78.2 Mixed hyperlipidemia; R20.2 Paresthesia of skin; L65.9 Nonscarring hair loss, unspecified

== ENCOUNTER → 2025-01-22 14:57 | Outpatient (BNVA) | payer OTHER, SELFPAY | PROVIDERS: PCP Internal Medicine; Visit Provider Internal Medicine | DX: E11.65 Type 2 diabetes mellitus with hyperglycemia (principal); I10 Essential (primary) hypertension; E78.5 Hyperlipidemia, unspecified; R20.2 Paresthesia of skin; L65.9 Nonscarring hair loss, unspecified | CPT/HCPCS: 83036; 99212 ==